=== PATIENT | male | born 1955 | race Caucasian/White ===

== ENCOUNTER 2016-10-11 | Emergency (ER) | payer OTHER ==
--- NOTE | 2016-10-11 15:22 | ED.PDOC ---
History of Present Illness - General Chief Complaint: General Stated Complaint: arm swelling Time Seen by Provider: 10/11/16 15:19 Source: patient, RN notes reviewed, Vital Signs reviewed Exam Limitations: no limitations - History of Present Illness Initial Comments: This 61 y/o male hit the metal part on his doorway which caused a wound to his left arm 2 days ago. This AM when he awoke, the area was red and painful. Since he had open-heart surgery two months ago, he knew he had to come in to get it checked. The pain is mild-moderate. He washed the wound right away and put antibiotic ointment on it. He denies any fever. He has chills, but this started prior to the wound. No pain in his joints. Timing/Duration: getting worse, other - 2 days ago Severity: mild, moderate Improving Factors: nothing Worsening Factors: nothing Associated Symptoms: denies symptoms Allergies/Adverse Reactions: Allergies NO KNOWN ALLERGY Allergy (Verified 10/11/16 14:05) Home Medications: Ambulatory Orders Insulin Detemir [Levemir Pen] 30 units SUBCU PRN PRN 08/31/15 Nrpbpwivtv-Zqjwsfyvfgtjl-Uayhb [Capacet 50-325-40 mg] 1 cap PO DAILY 10/21/15 Cyclobenzaprine Tab (ER Disp) [Flexeril Tab (ER Dispense)] 10 mg PO BEDTIME 08/26 Lisinopril 10 mg PO BID 10/21/15 Nitroglycerin [Nitrostat] 0.4 mg SL Q5MIN PRN 10/21/15 Pantoprazole Sodium 40 mg PO DAILY 10/21/15 Allopurinol [Zyloprim] 100 mg PO DAILY 12/21/15 Atorvastatin Calcium [Lipitor] 40 mg PO DAILY 12/21/15 Budes/Formoterol INH 160/4.5 [Symbicort Inhaler 160/4.5] 1 puff INH DAILY HYDROcodone 5MG/APAP 325MG [[place] 5/325] 1 tab PO Q4H PRN 12/21/15 Calcitriol 0.25 mcg PO DAILY 01/14/16 Sulfamethoxazole-Trimethoprim [Bactrim Ds 800-160 mg] 1 tab PO BID #14 tab 10/11 Review of Systems - Review of Systems Constitutional: States: chills EENTM: States: no symptoms reported Respiratory: States: no symptoms reported Cardiology: States: no symptoms reported Gastrointestinal/Abdominal: States: no symptoms reported Genitourinary: States: no symptoms reported Musculoskeletal: States: no symptoms reported Skin: States: change in color, lesions Neurological: States: no symptoms reported Endocrine: States: intolerance to cold Hematologic/Lymphatic: States: no symptoms reported All other Systems: Reviewed and Negative Past Medical History (General) - Patient Medical History Hx Seizures: No Hx Stroke: No Hx Asthma: Yes Hx of COPD: Yes Hx Cardiac Disorders: Yes - arrhythmia Hx Congestive Heart Failure: Yes Hx Pacemaker: No Hx Hypertension: Yes Hx Diabetes: Yes Hx MRSA: No Surgical History: other - Vaccination History Hx Tetanus, Diphtheria Vaccination: No Hx Influenza Vaccination: Yes - 2014 Hx Pneumococcal Vaccination: Yes - Social History Hx Tobacco Use: Yes - Quit in Hx Alcohol Use: No Hx Substance Use: No Hx Substance Use Treatment: No Hx Depression: No Hx Physical Abuse: No Hx Emotional Abuse: No - Activities of Daily Living Hospice Agency (if applicable):: None - Female History Patient is a Female of Child Bearing Age (10 -59 yrs old): No Patient : No Family Medical History - Family History Father Family History: Unknown Name: Robert Mercado Age (years): 69 Living Status: Age at (years of age): 69 Cause of : Natural causes. Hx Family Asthma: - Pt Hx Family Congestive Heart Failure: Yes - Pt Hx Family Hypertension: Yes - Father, siblings Hx Family Stroke: Yes - Mother Hx Cardiac Disease: Yes - Father and siblings Hx Family Diabetes: Yes - Father and sister Hx Family Cancer: No Physical Exam - Physical Exam General Appearance: Alert, Comfortable, No apparent distress Ears, Nose, Throat: hearing grossly normal Respiratory: lungs clear, normal breath sounds, no respiratory distress, no accessory muscle use Cardiovascular/Chest: regular rate, rhythm, no edema, no gallop, no murmur Gastrointestinal/Abdominal: normal bowel sounds, non tender, soft Extremity: normal range of motion, no pedal edema Neurologic: alert, normal mood/affect, oriented x 3 Skin Exam: other - wound 1 cm on dorsal mid left forearm with erythema and induration 4 cm in diameter. No fluctuance. Lymphatic: no adenopathy Progress - Results/Orders Results/Orders: 10/11/16 13:55 Temperature 96.9 F L Pulse Rate [ 93 H pulse ox] Respiratory 20 Rate Blood Pressure 115/73 [Right Arm] O2 Sat by Pulse 93 L Oximetry Departure - Departure Clinical Impression: Wound cellulitis Time of Disposition: 15:27 Disposition: Discharge to Home or Self Care Condition: Fair Departure Forms: Patient Portal Self Enrollment, ED Discharge - Pt. Copy Instructions: DI for Cellulitis -- Adult, Cellulitis Diet: resume usual diet Referrals: VIOLETTA CHÁVEZ [Primary Care Provider] - 1-2 Weeks Prescriptions: Sulfamethoxazole-Trimethoprim [Bactrim Ds 800-160 mg] 1 tab PO BID #14 tab Home Medications: Ambulatory Orders Insulin Detemir [Levemir Pen] 30 units SUBCU PRN PRN 08/31/15 Edvchxhwgs-Ohlqdwqcsqdck-Elxan [Capacet 50-325-40 mg] 1 cap PO DAILY 10/21/15 Cyclobenzaprine Tab (ER Disp) [Flexeril Tab (ER Dispense)] 10 mg PO BEDTIME 08/26 Lisinopril 10 mg PO BID 10/21/15 Nitroglycerin [Nitrostat] 0.4 mg SL Q5MIN PRN 10/21/15 Pantoprazole Sodium 40 mg PO DAILY 10/21/15 Allopurinol [Zyloprim] 100 mg PO DAILY 12/21/15 Atorvastatin Calcium [Lipitor] 40 mg PO DAILY 12/21/15 Budes/Formoterol INH 160/4.5 [Symbicort Inhaler 160/4.5] 1 puff INH DAILY HYDROcodone 5MG/APAP 325MG [[place] 5/325] 1 tab PO Q4H PRN 12/21/15 Calcitriol 0.25 mcg PO DAILY 01/14/16 Sulfamethoxazole-Trimethoprim [Bactrim Ds 800-160 mg] 1 tab PO BID #14 tab 10/11 Additional Instructions: Follow up in ED for ANY fever or increase in size of cellulitis.
== END 2016-10-11 16:04 | disposition home or self-care (01) ==

== ENCOUNTER 2016-11-19 11:38 | Emergency (ER) | payer OTHER ==
[2016-11-19 12:00] VITALS: TEMP 96.8
--- NOTE | 2016-11-19 13:23 | RAD ---
EXAM DESCRIPTION: XR SHOULDER 2 OR MORE VIEWS CLINICAL HISTORY: [place] "pop" in shoulder, now severe pain COMPARISON: None. IMPRESSION: Two views of the right shoulder show no evidence of acute fracture, focal bone destruction, or joint dislocation. The osseous structures are diffusely osteopenic. Small inferior medial osteophyte of the humeral head is seen consistent with glenohumeral joint osteoarthritic changes. There is elevation of the humeral head in the glenohumeral joint contouring the inferior aspect of the acromion process. This likely represents evidence and sequela of chronic rotator cuff tear. Electronically signed by: Jorge Mackey MD 11/19/2016 13:21
--- NOTE | 2016-11-19 14:06 | ED.PDOC ---
History of Present Illness - General Chief Complaint: Upper Extremity Injury Stated Complaint: RIGHT SHOULDER PAIN Time Seen by Provider: 11/19/16 12:37 Source: patient, RN notes reviewed, Vital Signs reviewed Exam Limitations: no limitations - History of Present Illness Initial Comments: Patient is a 61 y/o male who was picking something off the floor and heard a pop inn his right shoulder. Since, he has had extreme pain in the shoulder. He has greatly reduced ROM and is unable to lift his arm without severe pain. The pain is sharp, worse with movement, especially abduction and internal rotation. Additionally, Patient had a ringworm on his upper left arm. He was given some medicine by his physician and it went away, however it has returned. It is very itchy. Timing/Duration: getting worse, other - 2 days ago Severity: severe Improving Factors: nothing Worsening Factors: movement Associated Symptoms: denies symptoms Allergies/Adverse Reactions: Allergies NO KNOWN ALLERGY Allergy (Verified 10/11/16 14:05) Home Medications: Ambulatory Orders Insulin Detemir [Levemir Pen] 30 units SUBCU PRN PRN 08/31/15 Zmpxidsmjw-Lnjfedqhwsjzu-Njihl [Capacet 50-325-40 mg] 1 cap PO DAILY 10/21/15 Cyclobenzaprine Tab (ER Disp) [Flexeril Tab (ER Dispense)] 10 mg PO BEDTIME 08/26 Lisinopril 10 mg PO BID 10/21/15 Nitroglycerin [Nitrostat] 0.4 mg SL Q5MIN PRN 10/21/15 Pantoprazole Sodium 40 mg PO DAILY 10/21/15 Allopurinol [Zyloprim] 100 mg PO DAILY 12/21/15 Atorvastatin Calcium [Lipitor] 40 mg PO DAILY 12/21/15 Budes/Formoterol INH 160/4.5 [Symbicort Inhaler 160/4.5] 1 puff INH DAILY HYDROcodone 5MG/APAP 325MG [[place] 5/325] 1 tab PO Q4H PRN 12/21/15 Calcitriol 0.25 mcg PO DAILY 01/14/16 Sulfamethoxazole-Trimethoprim [Bactrim Ds 800-160 mg] 1 tab PO BID #14 tab 10/11 Terbinafine [Lamisil Advanced] 1 % TD DAILY #30 gm 11/19/16 Review of Systems - Review of Systems Constitutional: States: no symptoms reported EENTM: States: no symptoms reported Respiratory: States: no symptoms reported Cardiology: States: no symptoms reported Gastrointestinal/Abdominal: States: no symptoms reported Genitourinary: States: no symptoms reported Musculoskeletal: States: joint pain, muscle pain Skin: States: no symptoms reported Neurological: States: no symptoms reported Endocrine: States: no symptoms reported Hematologic/Lymphatic: States: no symptoms reported All other Systems: Reviewed and Negative Past Medical History (General) - Patient Medical History Hx Seizures: No Hx Stroke: No Hx Asthma: Yes Hx of COPD: Yes Hx Cardiac Disorders: Yes - arrhythmia Hx Congestive Heart Failure: Yes Hx Pacemaker: No Hx Hypertension: Yes Hx Diabetes: Yes Hx MRSA: No Surgical History: no surgical history - Vaccination History Hx Tetanus, Diphtheria Vaccination: No Hx Influenza Vaccination: Yes - 2014 Hx Pneumococcal Vaccination: Yes - Social History Hx Tobacco Use: Yes - Quit in Hx Alcohol Use: No Hx Substance Use: No Hx Substance Use Treatment: No Hx Depression: No Hx Physical Abuse: No Hx Emotional Abuse: No - Female History Patient : No Family Medical History - Family History Father Family History: Unknown Name: Robert Mercado Age (years): 69 Living Status: Age at (years of age): 69 Cause of : Natural causes. Hx Family Asthma: - Pt Hx Family Congestive Heart Failure: Yes - Pt Hx Family Hypertension: Yes - Father, siblings Hx Family Stroke: Yes - Mother Hx Cardiac Disease: Yes - Father and siblings Hx Family Diabetes: Yes - Father and sister Hx Family Cancer: No Physical Exam - Physical Exam General Appearance: Alert, Obvious distress - Mild, Unkempt Ears, Nose, Throat: hearing grossly normal, normal ENT inspection Neck: non-tender, full range of motion Respiratory: lungs clear, normal breath sounds, no respiratory distress, no accessory muscle use Cardiovascular/Chest: regular rate, rhythm, no edema, no gallop, no murmur Gastrointestinal/Abdominal: normal bowel sounds, non tender, soft Back Exam: normal inspection, no vertebral tenderness Extremity: other - R shoulder: Decreased ROM, abd < 90 deg, pain with int rot., tender joint space and ac joint Neurologic: alert, normal mood/affect, oriented x 3 Skin Exam: warm/dry, rash - Macular, flaky rash on anterior/lateral distal arm and proximal forearm Progress - Results/Orders Results/Orders: 11/19/16 11/19/16 11:54 12:55 Temperature 96.8 F L Pulse Rate [RH] 68 61 Respiratory 16 20 Rate Blood Pressure 155/79 142/87 [LEFT BRACHIAL] O2 Sat by Pulse 95 95 Oximetry - EKG/XRAY/CT XRAY: R shoulder Xray Comments: Glenohumeral Jt. OA, evidence of chronic rotator cuff tear Departure - Departure Clinical Impression: Tinea corporis Right shoulder strain Qualifiers: Encounter type: initial encounter Qualifier Code: (S46.911A) Strain of unspecified muscle, fascia and tendon at shoulder and upper arm level, right arm , initial encounter Rotator cuff tear, right Qualifiers: Rotator cuff tear extent: unspecified tear extent Qualifier Code: (M75.101) Unspecified rotator cuff tear or rupture of right shoulder, not specified as traumatic Glenohumeral arthritis Qualifiers: Laterality: right Qualifier Code: (M19.011) Primary osteoarthritis, right shoulder Time of Disposition: 14:21 Disposition: Discharge to Home or Self Care Condition: Good Departure Forms: ED Discharge - Pt. Copy, Patient Portal Self Enrollment Instructions: DI for Rotator Cuff Injury, Shoulder Sprain, DI for Tinea Corporis Diet: resume usual diet Activity: no lifting, no pushing/pulling with affected limb Referrals: VIOLETTA CHÁVEZ [Primary Care Provider] - 1-2 Weeks Prescriptions: Terbinafine [Lamisil Advanced] 1 % TD DAILY #30 gm Home Medications: Ambulatory Orders Insulin Detemir [Levemir Pen] 30 units SUBCU PRN PRN 08/31/15 Aaggdhbzhx-Waefpjutdccrn-Qrhot [Capacet 50-325-40 mg] 1 cap PO DAILY 10/21/15 Cyclobenzaprine Tab (ER Disp) [Flexeril Tab (ER Dispense)] 10 mg PO BEDTIME 08/26 Lisinopril 10 mg PO BID 10/21/15 Nitroglycerin [Nitrostat] 0.4 mg SL Q5MIN PRN 10/21/15 Pantoprazole Sodium 40 mg PO DAILY 10/21/15 Allopurinol [Zyloprim] 100 mg PO DAILY 12/21/15 Atorvastatin Calcium [Lipitor] 40 mg PO DAILY 12/21/15 Budes/Formoterol INH 160/4.5 [Symbicort Inhaler 160/4.5] 1 puff INH DAILY HYDROcodone 5MG/APAP 325MG [[place] 5/325] 1 tab PO Q4H PRN 12/21/15 Calcitriol 0.25 mcg PO DAILY 01/14/16 Sulfamethoxazole-Trimethoprim [Bactrim Ds 800-160 mg] 1 tab PO BID #14 tab 10/11 Terbinafine [Lamisil Advanced] 1 % TD DAILY #30 gm 11/19/16 Additional Instructions: May alternate Naproxen OR Ibuprofen and Tylenol for pain.
[2016-11-19 14:48] VITALS: O2SAT 92
[2016-11-19 14:51] VITALS: BP 138/81
== END 2016-11-19 14:40 | disposition home or self-care (01) ==
LOC: ER 11:38
DX: S46.911A Strain of unspecified muscle, fascia and tendon at shoulder and upper arm level, right arm, initial encounter (principal); M75.101 Unspecified rotator cuff tear or rupture of right shoulder, not specified as traumatic; M19.011 Primary osteoarthritis, right shoulder; B35.4 Tinea corporis; J44.9 Chronic obstructive pulmonary disease, unspecified; I49.9 Cardiac arrhythmia, unspecified; I10 Essential (primary) hypertension; E11.9 Type 2 diabetes mellitus without complications; Z87.891 Personal history of nicotine dependence; Z79.899 Other long term (current) drug therapy; Z79.4 Long term (current) use of insulin; X58.XXXA Exposure to other specified factors, initial encounter

== ENCOUNTER → 2016-12-16 | Outpatient (CLI) | payer OTHER ==
--- NOTE | 2016-12-16 15:01 | MRI ---
MRI right shoulder without contrast INDICATION: Chronic shoulder pain rotator cuff tear, onset of symptoms two weeks ago lifting injury TECHNIQUE: Noncontrast MR imaging right shoulder standard protocol FINDINGS: There is a full-thickness detachment of the subscapularis tendon retracted to the glenohumeral joint level. Diffuse labral degeneration with mild glenohumeral osteoarthrosis. Full-thickness retracted tears of the supraspinatus and infraspinatus tendons retracted to the glenohumeral joint level. Narrowed subacromial space with moderate hypertrophic AC joint arthrosis and undersurface erosion and cystic change of the acromion related to the high riding humerus. There is a prominent cystic-appearing lesion or less likely chondroid lesion in the greater tuberosity. There is continuous fluid from the glenohumeral joint into the bursa. There is also cystic change and edema in the upper rim of the glenoid indicating chondrosis and developing osteoarthrosis. Grade 4 fatty and volumetric atrophy supraspinatus and infraspinatus muscle bellies. Grade 3 fatty and volumetric atrophy of the subscapularis. Grade 1 marbling teres minor. IMPRESSION: Massive chronic full-thickness retracted rotator cuff tears supraspinatus and infraspinatus and subscapularis with muscle atrophy see above discussion High riding humerus related to the deficient rotator cuff with erosion and cystic change of the acromion AC joint osteoarthrosis Early glenohumeral osteoarthrosis Ill-defined intracapsular biceps indicating high-grade partial to full-thickness tear Electronically signed by: Fausto Felder MD 12/16/2016 3:01 PM ACCOUNTING PRACTICE MANAGER
== END | disposition home or self-care (01) ==
LOC: MRI 12:31
PROVIDERS: ATTEND Family Medicine
DX: M75.101 Unspecified rotator cuff tear or rupture of right shoulder, not specified as traumatic (principal); M19.011 Primary osteoarthritis, right shoulder

== ENCOUNTER 2017-01-06 17:50 | Emergency (ER) | payer OTHER ==
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
[2017-01-06 20:23] VITALS: BP 156/90; TEMP 98.2; O2SAT 96
== END 2017-01-06 20:29 | disposition home or self-care (01) ==
LOC: ER 17:50
DX: S20.219A Contusion of unspecified front wall of thorax, initial encounter (principal); S29.011A Strain of muscle and tendon of front wall of thorax, initial encounter; J44.9 Chronic obstructive pulmonary disease, unspecified; I11.0 Hypertensive heart disease with heart failure; I50.9 Heart failure, unspecified; E11.9 Type 2 diabetes mellitus without complications; I49.9 Cardiac arrhythmia, unspecified; Z87.891 Personal history of nicotine dependence; V49.40XA Driver injured in collision with unspecified motor vehicles in traffic accident, initial encounter; Y92.410 Unspecified street and highway as the place of occurrence of the external cause; Z79.4 Long term (current) use of insulin; Z79.899 Other long term (current) drug therapy

== ENCOUNTER 2017-09-30 06:01 | Emergency (ER) | payer OTHER ==
[2017-09-30 06:19] VITALS: BP 154/69; TEMP 96.7; O2SAT 95
[2017-09-30] MEDS ORDERED: LIDOCAINE 1% 10 ML VIAL INJ ONE (06:19)
--- NOTE | 2017-09-30 06:41 | ED.PDOC ---
History of Present Illness - General Chief Complaint: ENT Problem Stated Complaint: bug crawled in ear Time Seen by Provider: 09/30/17 06:38 Source: patient, RN notes reviewed, Vital Signs reviewed Exam Limitations: no limitations Additional Information: Pt presents to ER c/o sensation of insect in right ear.Otherwise no complaints. - History of Present Illness Timing/Duration: abrupt EENT Location: ear (R) Prearrival Treatment: no prearrival treatment Improving Factors: nothing Worsening Factors: nothing Associated Symptoms: denies symptoms Allergies/Adverse Reactions: Allergies NO KNOWN ALLERGY Allergy (Verified 10/11/16 14:05) Home Medications: Ambulatory Orders Insulin Detemir [Levemir Pen] 30 units SUBCU PRN PRN 08/31/15 Ablhgdwsyz-Srxsldbrhowjj-Jcgiv [Capacet 50-325-40 mg] 1 cap PO DAILY 10/21/15 Cyclobenzaprine Tab (ER Disp) [Flexeril Tab (ER Dispense)] 10 mg PO BEDTIME 08/26 Lisinopril 10 mg PO BID 10/21/15 Nitroglycerin [Nitrostat] 0.4 mg SL Q5MIN PRN 10/21/15 Pantoprazole Sodium 40 mg PO DAILY 10/21/15 Allopurinol [Zyloprim] 100 mg PO DAILY 12/21/15 Atorvastatin Calcium [Lipitor] 40 mg PO DAILY 12/21/15 Budes/Formoterol INH 160/4.5 [Symbicort Inhaler 160/4.5] 1 puff INH DAILY HYDROcodone 5MG/APAP 325MG [[place] 5/325] 1 tab PO Q4H PRN 12/21/15 Calcitriol 0.25 mcg PO DAILY 01/14/16 Sulfamethoxazole-Trimethoprim [Bactrim Ds 800-160 mg] 1 tab PO BID #14 tab 10/11 Terbinafine [Lamisil Advanced] 1 % TD DAILY #30 gm 11/19/16 tiZANidine [Zanaflex] 4 mg PO TID PRN #30 tab 01/06/17 Review of Systems - Review of Systems Constitutional: States: no symptoms reported EENTM: States: ear pain - Right ear - insect in right ear canal Respiratory: States: no symptoms reported Cardiology: States: no symptoms reported Gastrointestinal/Abdominal: States: no symptoms reported Genitourinary: States: no symptoms reported Musculoskeletal: States: no symptoms reported Skin: States: no symptoms reported Neurological: States: no symptoms reported Endocrine: States: no symptoms reported Hematologic/Lymphatic: States: no symptoms reported Past Medical History (General) - Patient Medical History Hx Seizures: No Hx Stroke: No Hx Asthma: Yes Hx of COPD: Yes Hx Cardiac Disorders: Yes - arrhythmia Hx Congestive Heart Failure: Yes Hx Pacemaker: No Hx Hypertension: Yes Hx Diabetes: Yes Hx MRSA: No Surgical History: angioplasty, coronary bypass surgery, other - Vaccination History Hx Tetanus, Diphtheria Vaccination: No Hx Influenza Vaccination: No Hx Pneumococcal Vaccination: Yes Immunizations Up to Date: Yes - Social History Hx Tobacco Use: No Hx Alcohol Use: No Hx Substance Use: No Hx Substance Use Treatment: No Hx Depression: No Hx Physical Abuse: No Hx Emotional Abuse: No - Female History Patient : No Family Medical History - Family History Father Family History: Unknown Name: Robert Mercado Age (years): 69 Living Status: Age at (years of age): 69 Cause of : Natural causes. Hx Family Asthma: - Pt Hx Family Congestive Heart Failure: Yes - Pt Hx Family Hypertension: Yes - Father, siblings Hx Family Stroke: Yes - Mother Hx Cardiac Disease: Yes - Father and siblings Hx Family Diabetes: Yes - Father and sister Hx Family Cancer: No Physical Exam - Physical Exam General Appearance: Alert, Comfortable, No apparent distress - at rest. Complained of some mild discomfort due to pressure with removal attempt. Eye Exam: bilateral normal Ear Exam: right ear: foreign body - Insect - not moving. After removal identified as a upton. Nasal Exam: normal inspection Throat Exam: pharynx normal Neck: non-tender, full range of motion, supple Cardiovascular/Respiratory: regular rate, rhythm, no respiratory distress Neurologic: no motor/sensory deficits, alert, normal mood/affect, oriented x 3 Skin Exam: normal color Progress - Progress Progress: 09/30/17 06:45 Insect removed without difficulty using fine alligator forceps. No obvious damage to right TM. No bleeding or lacerations noticed on inspection post- removal. 09/30/17 06:46 Procedures - Foreign Body Removal Foreign Body Removal: bug - Right ear bathed in saline and 1% Lidocaine mixture in attempts to paralyze and drown insect. Alligator forceps used to remove insect from right EAC. Insect measured 1 1/2 cm x 1/2 cm and had the appearance of a upton. Foreign Body Physician Comment:: Dr. Trujillo Departure - Departure Clinical Impression: Pain in right ear Time of Disposition: 06:45 Disposition: Discharge to Home or Self Care Condition: Good Departure Forms: ED Discharge - Pt. Copy, Patient Portal Self Enrollment Referrals: VIOLETTA CHÁVEZ [Primary Care Provider] - 1-2 Weeks Home Medications: Ambulatory Orders Insulin Detemir [Levemir Pen] 30 units SUBCU PRN PRN 08/31/15 Abnjhvbzef-Ozycwgoxwbwcz-Vtvey [Capacet 50-325-40 mg] 1 cap PO DAILY 10/21/15 Cyclobenzaprine Tab (ER Disp) [Flexeril Tab (ER Dispense)] 10 mg PO BEDTIME 08/26 Lisinopril 10 mg PO BID 10/21/15 Nitroglycerin [Nitrostat] 0.4 mg SL Q5MIN PRN 10/21/15 Pantoprazole Sodium 40 mg PO DAILY 10/21/15 Allopurinol [Zyloprim] 100 mg PO DAILY 12/21/15 Atorvastatin Calcium [Lipitor] 40 mg PO DAILY 12/21/15 Budes/Formoterol INH 160/4.5 [Symbicort Inhaler 160/4.5] 1 puff INH DAILY HYDROcodone 5MG/APAP 325MG [[place] 5/325] 1 tab PO Q4H PRN 12/21/15 Calcitriol 0.25 mcg PO DAILY 01/14/16 Sulfamethoxazole-Trimethoprim [Bactrim Ds 800-160 mg] 1 tab PO BID #14 tab 10/11 Terbinafine [Lamisil Advanced] 1 % TD DAILY #30 gm 11/19/16 tiZANidine [Zanaflex] 4 mg PO TID PRN #30 tab 01/06/17 Additional Instructions: Keep ear clean. Do not pick at ear. Do not stick q-tips in ear. Return to ER if you notice blood coming from right ear and/or severe pain.
== END 2017-09-30 06:45 | disposition home or self-care (01) ==
LOC: ER 06:01
DX: T16.1XXA Foreign body in right ear, initial encounter (principal); H92.01 Otalgia, right ear; J45.909 Unspecified asthma, uncomplicated; J44.9 Chronic obstructive pulmonary disease, unspecified; I11.0 Hypertensive heart disease with heart failure; I50.9 Heart failure, unspecified; E11.9 Type 2 diabetes mellitus without complications; Z79.899 Other long term (current) drug therapy; Z79.4 Long term (current) use of insulin

== ENCOUNTER 2018-02-13 12:50 | Emergency (ER) | payer OTHER ==
[2018-02-13 13:27] VITALS: BP 145/82; TEMP 97.6; O2SAT 92
[2018-02-13] MEDS ORDERED: KETOROLAC TROMETHAMINE INJ 30 MG/ML VIAL IM ONE (13:51)
--- NOTE | 2018-02-13 13:54 | ED.PDOC ---
History of Present Illness - General Chief Complaint: General Stated Complaint: left foot pain Time Seen by Provider: 02/13/18 13:35 Source: patient Exam Limitations: no limitations - History of Present Illness Initial Comments: Patient presents with left foot pain for 24 hours. It is located on the medial and lateral sides with no radiation. Burning and aching in nature. Constant. Worse with movement, better with rest. Has had previous episodes that he says are from his "diabetic foot pain". When this has happened before, he has used crutches until it resolves. No other complaints. Timing/Duration: 24 hours Severity: moderate Improving Factors: rest Worsening Factors: movement Associated Symptoms: denies symptoms Allergies/Adverse Reactions: Allergies NO KNOWN ALLERGY Allergy (Verified 10/11/16 14:05) Home Medications: Ambulatory Orders Insulin Detemir [Levemir Pen] 30 units SUBCU PRN PRN 08/31/15 Ovcnfqqlmp-Ujgqfqrwqotvx-Snrtz [Capacet 50-325-40 mg] 1 cap PO DAILY 10/21/15 Cyclobenzaprine Tab (ER Disp) [Flexeril Tab (ER Dispense)] 10 mg PO BEDTIME 08/26 Lisinopril 10 mg PO BID 10/21/15 Nitroglycerin [Nitrostat] 0.4 mg SL Q5MIN PRN 10/21/15 Pantoprazole Sodium 40 mg PO DAILY 10/21/15 Allopurinol [Zyloprim] 100 mg PO DAILY 12/21/15 Atorvastatin Calcium [Lipitor] 40 mg PO DAILY 12/21/15 Budes/Formoterol INH 160/4.5 [Symbicort Inhaler 160/4.5] 1 puff INH DAILY HYDROcodone 5MG/APAP 325MG [Nitro 5/325] 1 tab PO Q4H PRN 12/21/15 Calcitriol 0.25 mcg PO DAILY 01/14/16 Sulfamethoxazole-Trimethoprim [Bactrim Ds 800-160 mg] 1 tab PO BID #14 tab 10/11 Terbinafine [Lamisil Advanced] 1 % TD DAILY #30 gm 11/19/16 tiZANidine [Zanaflex] 4 mg PO TID PRN #30 tab 01/06/17 Review of Systems - Review of Systems Constitutional: States: no symptoms reported EENTM: States: no symptoms reported Respiratory: States: no symptoms reported Cardiology: States: no symptoms reported Gastrointestinal/Abdominal: States: no symptoms reported Genitourinary: States: no symptoms reported Musculoskeletal: States: see HPI Skin: States: no symptoms reported Neurological: States: no symptoms reported, emotional problems Hematologic/Lymphatic: States: no symptoms reported Past Medical History (General) - Patient Medical History Hx Seizures: No Hx Stroke: No Hx Asthma: Yes Hx of COPD: Yes Hx Cardiac Disorders: Yes - arrhythmia Hx Congestive Heart Failure: Yes Hx Pacemaker: No Hx Hypertension: Yes Hx Diabetes: Yes Hx MRSA: No Surgical History: coronary bypass surgery - Vaccination History Hx Tetanus, Diphtheria Vaccination: No Hx Influenza Vaccination: No Hx Pneumococcal Vaccination: Yes - Social History Hx Tobacco Use: Yes Hx Alcohol Use: No Hx Substance Use: No Hx Substance Use Treatment: No Hx Depression: No Hx Physical Abuse: No Hx Emotional Abuse: No - Female History Patient : No Family Medical History - Family History Father Family History: Unknown Name: Robert Mercado Age (years): 69 Living Status: Age at (years of age): 69 Cause of : Natural causes. Hx Family Asthma: - Pt Hx Family Congestive Heart Failure: Yes - Pt Hx Family Hypertension: Yes - Father, siblings Hx Family Stroke: Yes - Mother Hx Cardiac Disease: Yes - Father and siblings Hx Family Diabetes: Yes - Father and sister Hx Family Cancer: No Physical Exam - Physical Exam General Appearance: Alert Eye Exam: bilateral normal Ears, Nose, Throat: hearing grossly normal, normal ENT inspection Neck: non-tender, full range of motion, supple Respiratory: lungs clear, normal breath sounds Cardiovascular/Chest: normal peripheral pulses, regular rate, rhythm, no edema Gastrointestinal/Abdominal: normal bowel sounds, non tender, soft Back Exam: no CVA tenderness Extremity: other - TTP over medial and lateral aspects of the left foot. 5/5 strength to flexionj/extension of the toes as well as dorsiflexion/ plantarflexion of the left foot. Full sensation over entire foot. Capillar refill less than two seconds over entire foot. 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 Crutches provided. 02/13/18 13:56 E.R. warnings given. Questions were elicited and answered. Patient voiced understanding and agreement with the plan. 02/13/18 13:58 Departure - Departure Clinical Impression: Left foot pain Disposition: Discharge to Home or Self Care Condition: Good Departure Forms: ED Discharge - Pt. Copy, Patient Portal Self Enrollment Diet: other - as per your regular doctor Activity: other - crutches until pain is resolved Referrals: VIOLETTA CHÁVEZ [Primary Care Provider] - 1-2 Weeks Home Medications: Ambulatory Orders Insulin Detemir [Levemir Pen] 30 units SUBCU PRN PRN 08/31/15 Ngjvlwtxlj-Zqbxlaluucazb-Oyzch [Capacet 50-325-40 mg] 1 cap PO DAILY 10/21/15 Cyclobenzaprine Tab (ER Disp) [Flexeril Tab (ER Dispense)] 10 mg PO BEDTIME 08/26 Lisinopril 10 mg PO BID 10/21/15 Nitroglycerin [Nitrostat] 0.4 mg SL Q5MIN PRN 10/21/15 Pantoprazole Sodium 40 mg PO DAILY 10/21/15 Allopurinol [Zyloprim] 100 mg PO DAILY 12/21/15 Atorvastatin Calcium [Lipitor] 40 mg PO DAILY 12/21/15 Budes/Formoterol INH 160/4.5 [Symbicort Inhaler 160/4.5] 1 puff INH DAILY HYDROcodone 5MG/APAP 325MG [Nitro 5/325] 1 tab PO Q4H PRN 12/21/15 Calcitriol 0.25 mcg PO DAILY 01/14/16 Sulfamethoxazole-Trimethoprim [Bactrim Ds 800-160 mg] 1 tab PO BID #14 tab 10/11 Terbinafine [Lamisil Advanced] 1 % TD DAILY #30 gm 11/19/16 tiZANidine [Zanaflex] 4 mg PO TID PRN #30 tab 01/06/17 Additional Instructions: Use the crutches until pain has resolved. Take tylenol for further pain control. See your regular doctor about longer term evaluation and management of the pain.
== END 2018-02-13 14:22 | disposition home or self-care (01) ==
LOC: ER 12:50
DX: M79.672 Pain in left foot (principal); J44.9 Chronic obstructive pulmonary disease, unspecified; I11.0 Hypertensive heart disease with heart failure; I50.9 Heart failure, unspecified; J45.909 Unspecified asthma, uncomplicated; E11.9 Type 2 diabetes mellitus without complications; Z95.1 Presence of aortocoronary bypass graft; I49.9 Cardiac arrhythmia, unspecified; Z79.4 Long term (current) use of insulin
CPT/HCPCS: 82948; J1885

== ENCOUNTER → 2018-04-15 | Outpatient (CLI) | payer OTHER | LOC: LAB.O 13:02 | PROVIDERS: ATTEND Anesthesiology Pain Medicine | DX: Z95.2 Presence of prosthetic heart valve (principal) ==

== ENCOUNTER 2018-04-27 21:39 | Emergency (ER) | payer OTHER ==
--- NOTE | 2018-04-27 22:04 | ED.PDOC ---
History of Present Illness - General Chief Complaint: ENT Problem Stated Complaint: sore throat Time Seen by Provider: 04/27/18 21:50 Source: patient Exam Limitations: no limitations - History of Present Illness Initial Comments: Kamari Mercado 62 y/o male stated that he had achy throat for the last 3 days and productive cough on and off for 3 weeks.Denies fever nausea/or vomiting;no weight loss; had also been having nasal congestion.Has DM2,CAD,Asthma .Quit smoking several years ago. Also had not given his nightime dose of insulin tonight. Timing/Duration: gradual, other - 3 days ago Severity: moderate EENT Location: throat Prearrival Treatment: no prearrival treatment Presenting Symptoms: sore throat; cough Improving Factors: nothing Worsening Factors: nothing Associated Symptoms: other - see hpi Allergies/Adverse Reactions: Allergies NO KNOWN ALLERGY Allergy (Verified 04/27/18 22:06) Home Medications: Ambulatory Orders Insulin Detemir [Levemir Pen] 30 units SUBCU PRN PRN 08/31/15 Amxdsemtws-Pqrgougvoyyim-Jyhed [Capacet 50-325-40 mg] 1 cap PO DAILY 10/21/15 Cyclobenzaprine Tab (ER Disp) [Flexeril Tab (ER Dispense)] 10 mg PO BEDTIME 08/26 Lisinopril 10 mg PO BID 10/21/15 Nitroglycerin [Nitrostat] 0.4 mg SL Q5MIN PRN 10/21/15 Pantoprazole Sodium 40 mg PO DAILY 10/21/15 Allopurinol [Zyloprim] 100 mg PO DAILY 12/21/15 Atorvastatin Calcium [Lipitor] 40 mg PO DAILY 12/21/15 Budes/Formoterol INH 160/4.5 [Symbicort Inhaler 160/4.5] 1 puff INH DAILY HYDROcodone 5MG/APAP 325MG [[place] 5/325] 1 tab PO Q4H PRN 12/21/15 Calcitriol 0.25 mcg PO DAILY 01/14/16 Sulfamethoxazole-Trimethoprim [Bactrim Ds 800-160 mg] 1 tab PO BID #14 tab 10/11 Terbinafine [Lamisil Advanced] 1 % TD DAILY #30 gm 11/19/16 tiZANidine [Zanaflex] 4 mg PO TID PRN #30 tab 01/06/17 Review of Systems - Review of Systems Constitutional: States: no symptoms reported EENTM: States: see HPI, throat pain Respiratory: States: see HPI, cough Cardiology: States: no symptoms reported Gastrointestinal/Abdominal: States: no symptoms reported Genitourinary: States: no symptoms reported Musculoskeletal: States: no symptoms reported Skin: States: see HPI Neurological: States: no symptoms reported All other Systems: Reviewed and Negative, No Change from Baseline Past Medical History (General) - Patient Medical History Hx Seizures: No Hx Stroke: No Hx Asthma: Yes Hx of COPD: Yes Hx Cardiac Disorders: Yes - arrhythmia Hx Congestive Heart Failure: Yes Hx Pacemaker: No Hx Hypertension: Yes Hx Diabetes: Yes Hx MRSA: No Surgical History: coronary bypass surgery, other - cataract,cardiac stent;heart valve replacement - Vaccination History Hx Tetanus, Diphtheria Vaccination: No Hx Influenza Vaccination: No Hx Pneumococcal Vaccination: Yes - Social History Hx Tobacco Use: Yes Hx Alcohol Use: No Hx Substance Use: No Hx Substance Use Treatment: No Hx Depression: No Hx Physical Abuse: No Hx Emotional Abuse: No - Female History Patient : No Family Medical History - Family History Father Family History: Unknown Name: Robert Mercado Age (years): 69 Living Status: Age at (years of age): 69 Cause of : Natural causes. Hx Family Asthma: - Pt Hx Family Congestive Heart Failure: Yes - Pt Hx Family Hypertension: Yes - Father, siblings Hx Family Stroke: Yes - Mother Hx Cardiac Disease: Yes - Father and siblings Hx Family Diabetes: Yes - Father and sister Hx Family Cancer: No Physical Exam - Physical Exam General Appearance: Alert, Comfortable, No apparent distress Eye Exam: bilateral normal Ear Exam: bilateral ear: auricle normal, canal normal, TM normal Nasal Exam: other - congested nasal mucosa Throat Exam: other - pharyngeal erythema multiple dental decay Neck: supple, normal inspection, trachea midline Cardiovascular/Respiratory: regular rate, rhythm, no M/R/G, normal peripheral pulses, no respiratory distress, wheezing - bilaterally Abdominal Exam: non-tender, no organomegaly Neurologic: alert, oriented x 3 Skin Exam: normal color, warm/dry Progress - Progress Progress: 04/27/18 23:45 Vital Signs - 8 hr 04/27/18 04/27/18 04/27/18 21:45 21:50 22:10 Temperature 99.0 F Pulse Rate 88 Pulse Rate [ 102 H monitor] Respiratory 22 22 18 Rate Blood Pressure 139/81 [Right Arm] O2 Sat by Pulse 92 L 93 L Oximetry - Results/Orders Results/Orders: 04/27/18 22:05 IV Care:Saline Lock per Protoc QSHIFT 04/27/18 22:24 STREP A SCREEN CULTURE Stat 04/28/18 09:00 [facility] Daily Laboratory Results - last 24 hr 04/27/18 04/27/18 04/27/18 22:19 22:19 22:24 WBC 8.5 RBC 3.64 L Hgb 11.9 L Hct 33.8 L MCV 92.8 MCH 32.6 H MCHC 35.3 RDW 13.0 Plt Count 113 L MPV 8.8 Absolute Neuts (auto) 6.60 Absolute Lymphs (auto) 0.90 L Absolute Monos (auto) 0.70 Absolute Eos (auto) 0.20 Absolute Basos (auto) 0.10 Neutrophils % 77.5 Lymphocytes % 11.0 L Monocytes % 8.6 Eosinophils % 2.0 Basophils % 0.9 PT 10.6 INR 1.06 PTT (SP) 25.9 Sodium 136 Potassium 4.2 Chloride 104 Carbon Dioxide 27 Anion Gap 9.2 L BUN 18 Creatinine 1.59 H BUN/Creatinine Ratio 11.3 Random Glucose 316 H Serum Osmolality 285.9 Lactic Acid 1.0 Calcium 8.6 Magnesium 2.0 Total Bilirubin 0.7 Direct Bilirubin 0.1 Indirect Bilirubin 0.6 AST 21 ALT 20 Alkaline Phosphatase 122 H Creatine Kinase 127 CK-MB (CK-2) 4.5 H CK-MB (CK-2) % 3.54 H Troponin I 0.03 B-Natriuretic Peptide 77.8 Serum Total Protein 7.8 Albumin 3.9 Group A Strep Rapid Negative Departure - Departure Clinical Impression: Sore throat, Renal insufficiency Asthmatic bronchitis with exacerbation Qualifiers: Asthma severity: unspecified severity Qualified Code(s): J45.901 - Unspecified asthma with (acute) exacerbation Time of Disposition: 23:47 Disposition: Discharge to Home or Self Care Condition: Good Departure Forms: ED Discharge - Pt. Copy, Patient Portal Self Enrollment Instructions: Sore Throat in Adults, Avoiding Asthma Triggers, Asthma, Adult ( DC) Referrals: VIOLETTA CHÁVEZ [Primary Care Provider] - 1-2 Weeks Home Medications: Ambulatory Orders Insulin Detemir [Levemir Pen] 30 units SUBCU PRN PRN 08/31/15 Vzjtqvwluz-Fcfiwuxltrnby-Ffvmr [Capacet 50-325-40 mg] 1 cap PO DAILY 10/21/15 Cyclobenzaprine Tab (ER Disp) [Flexeril Tab (ER Dispense)] 10 mg PO BEDTIME 08/26 Lisinopril 10 mg PO BID 10/21/15 Nitroglycerin [Nitrostat] 0.4 mg SL Q5MIN PRN 10/21/15 Pantoprazole Sodium 40 mg PO DAILY 10/21/15 Allopurinol [Zyloprim] 100 mg PO DAILY 12/21/15 Atorvastatin Calcium [Lipitor] 40 mg PO DAILY 12/21/15 Budes/Formoterol INH 160/4.5 [Symbicort Inhaler 160/4.5] 1 puff INH DAILY HYDROcodone 5MG/APAP 325MG [[place] 5/325] 1 tab PO Q4H PRN 12/21/15 Calcitriol 0.25 mcg PO DAILY 01/14/16 Sulfamethoxazole-Trimethoprim [Bactrim Ds 800-160 mg] 1 tab PO BID #14 tab 10/11 Terbinafine [Lamisil Advanced] 1 % TD DAILY #30 gm 11/19/16 tiZANidine [Zanaflex] 4 mg PO TID PRN #30 tab 01/06/17 Additional Instructions: Use salt water gargle 3 x a day as needed for achy throat until better;Follow up with primary Md 29 April as needed;May take Tylenol 500 mg. by mouth 3 x a day as needed.
[2018-04-27 22:06] VITALS: TEMP 99
[2018-04-27] MEDS ORDERED: IPRATROPIUM/ALBUTEROL 3 ML VIAL NEB ONE ×2 (22:07→22:08)
--- NOTE | 2018-04-27 22:19 | RAD ---
EXAM: Chest,1 View CLINICAL INDICATION: Cough COMPARISON: 01/06/2017 FINDINGS: A single view of the chest was obtained. The heart size is mildly enlarged. Sternotomy wires are noted. The pulmonary vascularity is unremarkable. The lungs are clear. There is no consolidation, infiltrate, pleural effusion, or pneumothorax. IMPRESSION: No evidence of active pulmonary disease. Electronically signed by: Rohan Flores MD 04/27/2018 10:18 PM CDT
[2018-04-27 22:33] VITALS: O2SAT 93
[2018-04-27] MEDS ORDERED: SODIUM CHLORIDE 0.65% NASAL SPRAY 45 ML BTTL BNAS PRN (23:46)
[2018-04-27] MEDS ORDERED: ACETAMINOPHEN 500 MG TAB PO ONE (23:51)
[2018-04-28 00:30] VITALS: BP 132/88
== END 2018-04-28 00:08 | disposition home or self-care (01) ==
LOC: ER 21:39
DX: J02.9 Acute pharyngitis, unspecified (principal); J45.901 Unspecified asthma with (acute) exacerbation; E11.9 Type 2 diabetes mellitus without complications; I11.0 Hypertensive heart disease with heart failure; I50.9 Heart failure, unspecified; Z95.1 Presence of aortocoronary bypass graft; Z95.2 Presence of prosthetic heart valve; Z87.891 Personal history of nicotine dependence; Z79.4 Long term (current) use of insulin
CPT/HCPCS: 36415; 71045; 80048; 80076; 82550; 82553; 83605; 83880; 84484; 85025; 85610; 85730; 87070; 87880; 94640; J7620

== ENCOUNTER 2018-07-09 13:06 | Emergency (ER) | payer OTHER ==
[2018-07-09 13:34] VITALS: TEMP 97.6; O2SAT 94
[2018-07-09] MEDS ORDERED: predniSONE 20 MG TAB PO ONE (13:48)
[2018-07-09] MEDS ORDERED: COLCHICINE 0.6 MG TAB PO ONE (13:50)
--- NOTE | 2018-07-09 13:51 | ED.PDOC ---
History of Present Illness - General Chief Complaint: General Stated Complaint: woke up with finger swollen and red Time Seen by Provider: 07/09/18 13:48 Source: patient Exam Limitations: no limitations - History of Present Illness Initial Comments: patient comes in today with severe pain, swelling, and redness to his right index finger. Patient denies any injury or trauma. Patient states it felt fine last night when he went to bed. However, on awakening it was extremely painful and red. Patient does have a history of gout. Patient denies any fever , chills, nausea or vomiting. He does have diabetes, coronary artery disease, and hypertension and renal insufficiency. Timing/Duration: 1-3 hours Severity: severe Improving Factors: nothing Worsening Factors: movement Allergies/Adverse Reactions: Allergies NO KNOWN ALLERGY Allergy (Verified 07/09/18 13:33) Home Medications: Ambulatory Orders Insulin Detemir [Levemir Pen] 30 units SUBCU PRN PRN 08/31/15 Adwhxpkdsw-Ivbjowjbrydfu-Hbbam [Capacet 50-325-40 mg] 1 cap PO DAILY 10/21/15 Cyclobenzaprine Tab (ER Disp) [Flexeril Tab (ER Dispense)] 10 mg PO BEDTIME 08/26 Lisinopril 10 mg PO BID 10/21/15 Nitroglycerin [Nitrostat] 0.4 mg SL Q5MIN PRN 10/21/15 Pantoprazole Sodium 40 mg PO DAILY 10/21/15 Allopurinol [Zyloprim] 100 mg PO DAILY 12/21/15 Atorvastatin Calcium [Lipitor] 40 mg PO DAILY 12/21/15 Budes/Formoterol INH 160/4.5 [Symbicort Inhaler 160/4.5] 1 puff INH DAILY Calcitriol 0.25 mcg PO DAILY 01/14/16 tiZANidine [Zanaflex] 4 mg PO TID PRN #30 tab 01/06/17 Hydrocodone-Acetaminophen 7.5 mg PO PRN PRN 07/09/18 predniSONE 20 mg PO DAILY #3 tab 07/09/18 Review of Systems - Review of Systems Constitutional: States: no symptoms reported. Denies: chills, fever, malaise EENTM: States: no symptoms reported. Denies: eye pain, ear pain, nose pain Respiratory: States: no symptoms reported. Denies: cough, short of breath Cardiology: States: no symptoms reported. Denies: chest pain, edema, palpitations Gastrointestinal/Abdominal: States: no symptoms reported. Denies: abdominal pain, diarrhea, nausea Neurological: States: see HPI Past Medical History (General) - Patient Medical History Hx Seizures: No Hx Stroke: No Hx Dementia: No Hx Asthma: Yes Hx of COPD: Yes Hx Cardiac Disorders: Yes - arrhythmia Hx Congestive Heart Failure: Yes Hx Pacemaker: No Hx Hypertension: Yes Hx Thyroid Disease: No Hx Diabetes: Yes Hx Gastroesophageal Reflux: No Hx Renal Disease: No Hx Cancer: No Hx of HIV: No Hx Hepatitis C: No Hx MRSA: No - Vaccination History Hx Tetanus, Diphtheria Vaccination: No Hx Influenza Vaccination: No Hx Pneumococcal Vaccination: Yes - Social History Hx Tobacco Use: Yes Hx Alcohol Use: No Hx Substance Use: No Hx Substance Use Treatment: No Hx Depression: No Hx Physical Abuse: No Hx Emotional Abuse: No - Female History Patient : No Physical Exam - Physical Exam General Appearance: no apparent distress Neck: non-tender, full range of motion Respiratory: chest non-tender, lungs clear, normal breath sounds Cardiovascular/Chest: normal peripheral pulses, regular rate, rhythm, no edema, no murmur Gastrointestinal/Abdominal: normal bowel sounds, non tender, soft Extremities Exam: other - right finger has swelling, erythema, and calor to the DIP joint no pustule, no bite violetta, no skin break Departure - Departure Clinical Impression: Gout attack Qualifiers: Gout site: hand Gout etiology: unspecified cause Laterality: right Qualified Code(s): M10.9 - Gout, unspecified Disposition: Discharge to Home or Self Care Condition: Fair Departure Forms: ED Discharge - Pt. Copy, Patient Portal Self Enrollment Referrals: VIOLETTA CHÁVEZ [Primary Care Provider] - 1-2 Weeks Home Medications: Ambulatory Orders Insulin Detemir [Levemir Pen] 30 units SUBCU PRN PRN 08/31/15 Qiesdlqgax-Mwyhformihzow-Somze [Capacet 50-325-40 mg] 1 cap PO DAILY 10/21/15 Cyclobenzaprine Tab (ER Disp) [Flexeril Tab (ER Dispense)] 10 mg PO BEDTIME 08/26 Lisinopril 10 mg PO BID 10/21/15 Nitroglycerin [Nitrostat] 0.4 mg SL Q5MIN PRN 10/21/15 Pantoprazole Sodium 40 mg PO DAILY 10/21/15 Allopurinol [Zyloprim] 100 mg PO DAILY 12/21/15 Atorvastatin Calcium [Lipitor] 40 mg PO DAILY 12/21/15 Budes/Formoterol INH 160/4.5 [Symbicort Inhaler 160/4.5] 1 puff INH DAILY Calcitriol 0.25 mcg PO DAILY 01/14/16 tiZANidine [Zanaflex] 4 mg PO TID PRN #30 tab 01/06/17 Hydrocodone-Acetaminophen 7.5 mg PO PRN PRN 07/09/18 predniSONE 20 mg PO DAILY #3 tab 07/09/18 Additional Instructions: monitor BS carefully as medication will increase the BS. Follow up with PCP on Wednesday to recheck area.
[2018-07-09 14:13] VITALS: BP 124/93
== END 2018-07-09 14:19 | disposition home or self-care (01) ==
LOC: ER 13:06
DX: M10.9 Gout, unspecified (principal); J44.9 Chronic obstructive pulmonary disease, unspecified; I50.9 Heart failure, unspecified; I11.0 Hypertensive heart disease with heart failure; E11.9 Type 2 diabetes mellitus without complications; Z87.891 Personal history of nicotine dependence; Z79.899 Other long term (current) drug therapy

== ENCOUNTER 2018-11-13 14:45 | Emergency (ER) | payer OTHER ==
--- NOTE | 2018-11-13 15:17 | ED.PDOC ---
History of Present Illness - General Chief Complaint: Neuro Symptoms/Deficits Stated Complaint: ams Time Seen by Provider: 11/13/18 15:08 Source: patient, family Exam Limitations: no limitations - History of Present Illness Initial Comments: Kamari Mercado 63y/o male stated that he was noted by his to be mumbling about 6pm yesterday night and got light headed then fell asleep and on waking up this am he was fine except for some light headedness.No dysarthria,no weakness,no facial asymmetry,no tinnitus,able to move around w/o assistance. Timing/Duration: 24 hours Severity: moderate Episode Description: see hpi Improving Factors: nothing Worsening Factors: nothing Associated Symptoms: other - see hpi Allergies/Adverse Reactions: Allergies NO KNOWN ALLERGY Allergy (Verified 07/09/18 13:33) Home Medications: Ambulatory Orders Insulin Detemir [Levemir Pen] 30 units SUBCU PRN PRN 08/31/15 Mfkzsbtkhu-Mbdzglhvikzie-Lbptn [Capacet 50-325-40 mg] 1 cap PO DAILY 10/21/15 Cyclobenzaprine Tab (ER Disp) [Flexeril Tab (ER Dispense)] 10 mg PO BEDTIME 10/21/15 Lisinopril 10 mg PO BID 10/21/15 Nitroglycerin [Nitrostat] 0.4 mg SL Q5MIN PRN 10/21/15 Pantoprazole Sodium 40 mg PO DAILY 10/21/15 Allopurinol [Zyloprim] 100 mg PO DAILY 12/21/15 Atorvastatin Calcium [Lipitor] 40 mg PO DAILY 12/21/15 Budes/Formoterol INH 160/4.5 [Symbicort Inhaler 160/4.5] 1 puff INH DAILY 12/21/15 Calcitriol 0.25 mcg PO DAILY 01/14/16 tiZANidine [Zanaflex] 4 mg PO TID PRN #30 tab 01/06/17 Hydrocodone-Acetaminophen 7.5 mg PO PRN PRN 07/09/18 predniSONE 20 mg PO DAILY #3 tab 07/09/18 Review of Systems - Review of Systems Constitutional: States: no symptoms reported EENTM: States: no symptoms reported Respiratory: States: no symptoms reported Cardiology: States: no symptoms reported Gastrointestinal/Abdominal: States: no symptoms reported Genitourinary: States: no symptoms reported Musculoskeletal: States: no symptoms reported Skin: States: no symptoms reported Neurological: States: see HPI Endocrine: States: no symptoms reported Hematologic/Lymphatic: States: no symptoms reported All other Systems: Reviewed and Negative Past Medical History (General) - Patient Medical History Hx Seizures: No Hx Stroke: No Hx Dementia: No Hx Asthma: Yes Hx of COPD: Yes Hx Cardiac Disorders: Yes - arrhythmia Hx Congestive Heart Failure: Yes Hx Pacemaker: No Hx Hypertension: Yes Hx Thyroid Disease: No Hx Diabetes: Yes Hx Gastroesophageal Reflux: No Hx Renal Disease: No Hx Cancer: No Hx of HIV: No Hx Hepatitis C: No Hx MRSA: No Surgical History: coronary bypass surgery, other - heart valve replacement,cardiac stent,wrist - Vaccination History Hx Tetanus, Diphtheria Vaccination: No Hx Influenza Vaccination: No Hx Pneumococcal Vaccination: Yes - Social History Hx Tobacco Use: Yes Hx Alcohol Use: No Hx Substance Use: No Hx Substance Use Treatment: No Hx Depression: No Hx Physical Abuse: No Hx Emotional Abuse: No - Female History Patient : No Family Medical History - Family History Father Family History: Unknown Name: Robert Mercado Age (years): 69 Living Status: Age at (years of age): 69 Cause of : Natural causes. Hx Family Asthma: - Pt Hx Family Congestive Heart Failure: Yes - Pt Hx Family Hypertension: Yes - Father, siblings Hx Family Stroke: Yes - Mother Hx Cardiac Disease: Yes - Father and siblings Hx Family Diabetes: Yes - Father and sister Hx Family Cancer: No Physical Exam - Physical Exam General Appearance: Alert, Comfortable, No apparent distress, Other - speech fluent Eye Exam: bilateral normal ENT Exam: normal ENT inspection, hearing grossly normal, pharynx normal Neck: non-tender, full range of motion, supple, normal inspection, trachea midline, other - no carotid bruits bilaterally Respiratory: chest non-tender, lungs clear, normal breath sounds, no respiratory distress Cardiovascular/Chest: normal peripheral pulses, regular rate, rhythm, no murmur, other - heart valve click Peripheral Pulses: radial,right: 2+, radial,left: 2+ Gastrointestinal/Abdominal: normal bowel sounds, non tender, soft, no organomegaly, no pulsatile mass Back Exam: no CVA tenderness, no vertebral tenderness Extremities Exam: non-tender, no evidence of injury Mental 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, 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 Exam: normal hearing, normal speech, PERRL Coordination/Gait: normal finger to nose, normal gait, negative Romberg's sign Motor/Sensory: no motor deficit, no sensory deficit, no pronator drift Skin Exam: normal color, warm/dry Progress - Progress Progress: 11/13/18 16:18 Vital Signs - 8 hr 11/13/18 15:21 Temperature 97.9 F Pulse Rate [ 90 Left Radial] Respiratory 18 Rate Blood Pressure 140/91 [Left Arm] O2 Sat by Pulse 94 L Oximetry - Results/Orders Results/Orders: 11/13/18 15:30 EKG STAT Laboratory Results - last 24 hr 11/13/18 11/13/18 11/13/18 15:17 15:47 15:47 WBC 5.6 RBC 4.02 L Hgb 12.9 L Hct 37.1 L MCV 92.3 MCH 32.0 H MCHC 34.6 RDW 12.8 Plt Count 128 L MPV 9.5 Absolute Neuts (auto) 3.80 Absolute Lymphs (auto) 1.00 Absolute Monos (auto) 0.60 Absolute Eos (auto) 0.10 Absolute Basos (auto) 0.10 Neutrophils % 68.4 Lymphocytes % 18.2 L Monocytes % 11.2 H Eosinophils % 1.2 Basophils % 1.0 PT 10.8 INR 1.08 PTT (SP) 27.3 D-Dimer, Quantitative 0.49 Sodium 135 Potassium 3.8 Chloride 100 L Carbon Dioxide 27 Anion Gap 11.8 L BUN 39 H Creatinine 2.00 H BUN/Creatinine Ratio 19.5 Random Glucose 261 H Serum Osmolality 288.5 Calcium 9.1 Magnesium 2.1 Total Bilirubin 1.0 Direct Bilirubin 0.2 Indirect Bilirubin 0.8 AST 57 H ALT 23 Alkaline Phosphatase 115 Creatine Kinase 1959 H* CK-MB (CK-2) 44.4 H* CK-MB (CK-2) % 2.27 Troponin I 0.03 B-Natriuretic Peptide 17.5 Serum Total Protein 8.0 Albumin 4.0 Lipase TSH Urine Color Urine Appearance Urine pH Ur Specific [place] Urine Protein Urine Glucose (UA) Urine Ketones Urine Blood Urine Nitrite Urine Bilirubin Urine Urobilinogen Ur Leukocyte Esterase Urine RBC Urine WBC Ur Epithelial Cells Urine Bacteria Urine Opiates Screen Negative Urine Barbiturates Negative Ur Phencyclidine Scrn Negative U Amphetamin/Meth Scrn Negative U Benzodiazepines Scrn Negative U Cocaine Metab Screen Negative U Cannabinoids Screen Negative 11/13/18 11/13/18 11/13/18 16:56 17:08 20:45 WBC RBC Hgb Hct MCV MCH MCHC RDW Plt Count MPV Absolute Neuts (auto) Absolute Lymphs (auto) Absolute Monos (auto) Absolute Eos (auto) Absolute Basos (auto) Neutrophils % Lymphocytes % Monocytes % Eosinophils % Basophils % PT INR PTT (SP) D-Dimer, Quantitative Sodium Potassium Chloride Carbon Dioxide Anion Gap BUN Creatinine BUN/Creatinine Ratio Random Glucose Serum Osmolality Calcium Magnesium Total Bilirubin Direct Bilirubin Indirect Bilirubin AST ALT Alkaline Phosphatase Creatine Kinase 1391 H* CK-MB (CK-2) 31.9 H* CK-MB (CK-2) % 2.29 Troponin I 0.04 B-Natriuretic Peptide Serum Total Protein Albumin Lipase TSH 0.15 L Urine Color Yellow Urine Appearance Clear Urine pH 5.5 Ur Specific [place] 1.015 Urine Protein Negative Urine Glucose (UA) 250 H Urine Ketones Negative Urine Blood Trace-intact H Urine Nitrite Negative Urine Bilirubin Negative Urine Urobilinogen 1.0 Ur Leukocyte Esterase Negative Urine RBC 0 Urine WBC 0 Ur Epithelial Cells 0-1 Urine Bacteria 0 Urine Opiates Screen Urine Barbiturates Ur Phencyclidine Scrn U Amphetamin/Meth Scrn U Benzodiazepines Scrn U Cocaine Metab Screen U Cannabinoids Screen 11/13/18 11/13/18 20:45 20:45 WBC RBC Hgb Hct MCV MCH MCHC RDW Plt Count MPV Absolute Neuts (auto) Absolute Lymphs (auto) Absolute Monos (auto) Absolute Eos (auto) Absolute Basos (auto) Neutrophils % Lymphocytes % Monocytes % Eosinophils % Basophils % PT INR PTT (SP) D-Dimer, Quantitative Sodium 137 Potassium 4.4 Chloride 104 Carbon Dioxide 26 Anion Gap 11.4 L BUN 34 H Creatinine 1.73 H BUN/Creatinine Ratio 19.7 Random Glucose 153 H D Serum Osmolality 284.5 Calcium 8.4 Magnesium Total Bilirubin Direct Bilirubin Indirect Bilirubin AST ALT Alkaline Phosphatase Creatine Kinase CK-MB (CK-2) CK-MB (CK-2) % Troponin I B-Natriuretic Peptide Serum Total Protein Albumin Lipase 24 TSH Urine Color Urine Appearance Urine pH Ur Specific [place] Urine Protein Urine Glucose (UA) Urine Ketones Urine Blood Urine Nitrite Urine Bilirubin Urine Urobilinogen Ur Leukocyte Esterase Urine RBC Urine WBC Ur Epithelial Cells Urine Bacteria Urine Opiates Screen Urine Barbiturates Ur Phencyclidine Scrn U Amphetamin/Meth Scrn U Benzodiazepines Scrn U Cocaine Metab Screen U Cannabinoids Screen Discuss all test results with patient and - EKG/XRAY/CT EKG: Sinus, ST depression - anterolateral leads Comments: hr-82 CT Ordered: Yes - head no acute infarct or hemorrhage Stroke Information - Contraindications Antithrombotic Contraindication: Treatment not indicated - patient asymptomatic;.24 h see hpi Departure - Departure Clinical Impression: Altered awareness, transient, Statin-induced rhabdomyolysis, Abnormal serum thyroid stimulating hormone (TSH) level Time of Disposition: 22:36 Disposition: Discharge to Home or Self Care Condition: Fair Departure Forms: ED Discharge - Pt. Copy, Patient Portal Self Enrollment Instructions: Rhabdomyolysis (DC), Rhabdomyolysis Referrals: VIOLETTA CHÁVEZ [Primary Care Provider] - 1-2 Weeks Home Medications: Ambulatory Orders Insulin Detemir [Levemir Pen] 30 units SUBCU PRN PRN 08/31/15 Imfrkmfwha-Izbqirtyddhik-Pdxfc [Capacet 50-325-40 mg] 1 cap PO DAILY 10/21/15 Cyclobenzaprine Tab (ER Disp) [Flexeril Tab (ER Dispense)] 10 mg PO BEDTIME 10/21/15 Lisinopril 10 mg PO BID 10/21/15 Nitroglycerin [Nitrostat] 0.4 mg SL Q5MIN PRN 10/21/15 Pantoprazole Sodium 40 mg PO DAILY 10/21/15 Allopurinol [Zyloprim] 100 mg PO DAILY 12/21/15 Atorvastatin Calcium [Lipitor] 40 mg PO DAILY 12/21/15 Budes/Formoterol INH 160/4.5 [Symbicort Inhaler 160/4.5] 1 puff INH DAILY 12/21/15 Calcitriol 0.25 mcg PO DAILY 01/14/16 tiZANidine [Zanaflex] 4 mg PO TID PRN #30 tab 01/06/17 Hydrocodone-Acetaminophen 7.5 mg PO PRN PRN 07/09/18 predniSONE 20 mg PO DAILY #3 tab 07/09/18 Additional Instructions: STOP TAKING YOUR ATORVASTAT(Lipitor) continue with rest of your home medications except Atorvastatin need to stop Follow up with your primary Md in am 14 November 2018;Retrun to Emergency room as needed;Drink extra fluids
[2018-11-13 15:33] VITALS: TEMP 97.9
--- NOTE | 2018-11-13 15:49 | RAD ---
EXAM: Chest,1 View CLINICAL INDICATION: Altered mental status COMPARISON: 04/27/2018 FINDINGS: A single view of the chest was obtained. The heart size is normal. Sternotomy wires are noted. The pulmonary vascularity is unremarkable. The lungs are clear. There is no consolidation, infiltrate, pleural effusion, or pneumothorax. IMPRESSION: No evidence of active pulmonary disease. Electronically signed by: Rohan Flores MD 11/13/2018 3:46 PM [employer]ING [employer]
--- NOTE | 2018-11-13 15:56 | CT ---
EXAM DESCRIPTION: Head CLINICAL HISTORY: 63 years Male, ams COMPARISON: None. TECHNIQUE: Axial imaging. No IV contrast. Sagittal and coronal reconstruction FINDINGS: Ventricular system is within normal limits. No intracranial attenuation abnormalities are seen. No mass lesions or signs of hemorrhage. Moderate mucosal thickening right maxillary sinus, and mild mucosal thickening left maxillary sinus. Incidental lucency which measures 1.1 cm transverse, and 1.5 cm craniocaudad within the right anterior alveolar process of the maxilla. May represent a dentigerous cyst. Consider dental consultation. Tiny apical lucencies are also noted bilaterally involving the upper frontal teeth consistent with periodontal disease. Left nasal septal deviation with left nasal septal spur formation. IMPRESSION: Periodontal disease as described above for which dental consultation is suggested, which may be scheduled on an elective basis Sinus disease No intracranial abnormalities This exam was performed according to our departmental dose-optimization program, which includes automated exposure control, adjustment of the mA and/or kV according to patient size and/or use of iterative reconstruction technique. Electronically signed by: Huber Mayers 11/13/2018 3:54 PM [facility]
[2018-11-13] MEDS ORDERED: SODIUM CHLORIDE 0.9% 1000ML 1,000 ML IVS ONE ×2 (17:08→19:07)
[2018-11-13] MEDS ORDERED: SODIUM CHLORIDE 0.9% 500ML 500 ML IVS ONE (21:57)
[2018-11-13 23:00] VITALS: BP 136/86; O2SAT 95
== END 2018-11-13 23:05 | disposition home or self-care (01) ==
LOC: ER 14:45
DX: R41.82 Altered mental status, unspecified (principal); T50.995A Adverse effect of other drugs, medicaments and biological substances, initial encounter; M62.82 Rhabdomyolysis; R94.6 Abnormal results of thyroid function studies; J44.9 Chronic obstructive pulmonary disease, unspecified; I50.9 Heart failure, unspecified; I11.0 Hypertensive heart disease with heart failure; E11.9 Type 2 diabetes mellitus without complications; Z87.891 Personal history of nicotine dependence; Z79.899 Other long term (current) drug therapy; Z79.4 Long term (current) use of insulin
CPT/HCPCS: 36415; 70450; 71045; 80048; 80076; 80307; 81001; 82550; 82553; 83690; 83880; 84443; 84484; 85025; 85379; 85610; 85730; J7030; J7040

== ENCOUNTER 2019-04-26 13:19 | Emergency (ER) | payer OTHER ==
[2019-04-26] MEDS ORDERED: SODIUM CHLORIDE 0.9% 1000ML 1,000 ML IVS ONE (13:46)
--- NOTE | 2019-04-26 13:58 | RAD ---
EXAM DESCRIPTION: Chest,1 View CLINICAL HISTORY: 63 years Male, dizziness COMPARISON: Previous study November 13, 2018 TECHNIQUE: AP portable chest. FINDINGS: Heart size is prominent with normal pulmonary vascularity. Sternotomy wires are present. Left hemidiaphragm is mildly elevated. No consolidating infiltrate. No pulmonary mass or worrisome nodule. No pneumothorax or pleural effusion. Bones are unremarkable. IMPRESSION: No acute process is identified in the chest. Electronically signed by: Jorge Luis Mccray MD 04/26/2019 1:56 PM CDT
[2019-04-26] MEDS ORDERED: INSULIN, REG.(HUMAN) 100 U/ML VIAL IV ONE (14:13)
[2019-04-26 15:14] VITALS: O2SAT 94
[2019-04-26] MEDS ORDERED: INSULIN DETEMIR 100 UNITS/ML PEN SUBCU ONE (16:14)
--- NOTE | 2019-04-26 16:56 | ED.PDOC ---
History of Present Illness - General Chief Complaint: Headache Stated Complaint: headache, dizziness Time Seen by Provider: 04/26/19 13:27 Source: patient Exam Limitations: no limitations - History of Present Illness Initial Comments: the patient is a 63-year-old male presenting to the emergency room secondary to feeling fatigued and having some dizziness and a headache. His blood sugars have been high for the last week. Almost all of them greater than 500 on his monitor. No nausea or vomiting. No syncope. No chest pain. No focal neurological changes. He does have a history of very poorly controlled diabetes in general. Timing/Duration: unsure Severity: moderate Improving Factors: nothing Worsening Factors: nothing Associated Symptoms: denies symptoms Allergies/Adverse Reactions: Allergies NO KNOWN ALLERGY Allergy (Verified 02/28/19 12:05) Home Medications: Ambulatory Orders Insulin Detemir [Levemir Pen] 30 units SUBCU PRN PRN 08/31/15 Ylzjjqlyri-Ncubzowqfikex-Aocjb [Capacet 50-325-40 mg] 1 cap PO DAILY 10/21/15 Cyclobenzaprine Tab (ER Disp) [Flexeril Tab (ER Dispense)] 10 mg PO BEDTIME 10/21/15 Lisinopril 10 mg PO BID 10/21/15 Nitroglycerin [Nitrostat] 0.4 mg SL Q5MIN PRN 10/21/15 Pantoprazole Sodium 40 mg PO DAILY 10/21/15 Allopurinol [Zyloprim] 100 mg PO DAILY 12/21/15 Atorvastatin Calcium [Lipitor] 40 mg PO DAILY 12/21/15 Budes/Formoterol INH 160/4.5 [Symbicort Inhaler 160/4.5] 1 puff INH DAILY 12/21/15 Calcitriol 0.25 mcg PO DAILY 01/14/16 tiZANidine [Zanaflex] 4 mg PO TID PRN #30 tab 01/06/17 Hydrocodone-Acetaminophen 7.5 mg PO PRN PRN 07/09/18 predniSONE 20 mg PO DAILY #3 tab 07/09/18 Amoxicillin & Pot Clavulanate [Augmentin] 875 mg PO BID #20 tab 02/28/19 Review of Systems - Review of Systems Constitutional: States: malaise, weakness EENTM: States: no symptoms reported Respiratory: States: no symptoms reported Cardiology: States: no symptoms reported Gastrointestinal/Abdominal: States: no symptoms reported Genitourinary: States: no symptoms reported Musculoskeletal: States: no symptoms reported Skin: States: no symptoms reported Neurological: States: no symptoms reported Endocrine: States: no symptoms reported All other Systems: No Change from Baseline Past Medical History (General) - Patient Medical History Hx Seizures: No Hx Stroke: No Hx Dementia: No Hx Asthma: Yes Hx of COPD: Yes Hx Cardiac Disorders: Yes - arrhythmia Hx Congestive Heart Failure: Yes Hx Pacemaker: No Hx Hypertension: Yes Hx Thyroid Disease: No Hx Diabetes: Yes Hx Gastroesophageal Reflux: No Hx Renal Disease: No Hx Cancer: No Hx of HIV: No Hx Hepatitis C: No Hx MRSA: No Surgical History: coronary bypass surgery, other - Vaccination History Hx Tetanus, Diphtheria Vaccination: No Hx Influenza Vaccination: No Hx Pneumococcal Vaccination: Yes - 2014 - Social History Hx Tobacco Use: Yes Hx Alcohol Use: No Hx Substance Use: No Hx Substance Use Treatment: No Hx Depression: No Hx Physical Abuse: No Hx Emotional Abuse: No - Female History Patient : No Family Medical History - Family History Father Family History: Unknown Name: Robert Mercado Age (years): 69 Living Status: Age at (years of age): 69 Cause of : Natural causes. Hx Family Asthma: - Pt Hx Family Congestive Heart Failure: Yes - Pt Hx Family Hypertension: Yes - Father, siblings Hx Family Stroke: Yes - Mother Hx Cardiac Disease: Yes - Father and siblings Hx Family Diabetes: Yes - Father and sister Hx Family Cancer: No Physical Exam - Physical Exam General Appearance: Alert, No apparent distress Eye Exam: bilateral normal Ears, Nose, Throat: hearing grossly normal, normal ENT inspection Neck: full range of motion, supple Respiratory: lungs clear, normal breath sounds, no respiratory distress, no ac cessory muscle use Cardiovascular/Chest: normal peripheral pulses, regular rate, rhythm, no edema Peripheral Pulses: radial,right: 2+, radial,left: 2+ Gastrointestinal/Abdominal: non tender, soft Rectal Exam: deferred Back Exam: no CVA tenderness, no vertebral tenderness Extremity: non-tender, normal inspection, no pedal edema, normal capillary refill Neurologic: vaccinator II-XII nml as tested, alert, normal mood/affect, oriented x 3 Skin Exam: normal color Comments: Vital Signs - 8 hr 04/26/19 04/26/19 04/26/19 13:30 14:17 15:00 Temperature 98.7 F 97.3 F L Pulse Rate [ 104 H 105 H 97 H left brachial] Respiratory 20 20 Rate Blood Pressure 111/90 106/70 104/76 [left brachial] O2 Sat by Pulse 93 L 94 L Oximetry 04/26/19 16:00 Temperature Pulse Rate [ 88 left brachial] Respiratory 20 Rate Blood Pressure 119/81 [left brachial] O2 Sat by Pulse 94 L Oximetry Progress - Progress Progress: 04/26/19 16:57 the patient is a 63-year-old male presenting to the emergency room with headache and dizziness. This appears to be due to uncontrolled diabetes and mild dehydration. He has received IV insulin as well as subcutaneous insulin. His blood sugars are improving. He has also received a liter of IV fluids. I want him to increase his morning Levemir dose to 70 units from 60 units. I want him to add an evening Levemir dose of 20 units as well. He needs to keep himself well hydrated. He needs to keep a log of his blood sugars and follow up with his primary care doctor in the coming week. ER warnings were given for any acute worsening. - Results/Orders Results/Orders: Laboratory Tests 04/26/19 04/26/19 04/26/19 13:45 13:48 13:57 WBC RBC Hgb Hct MCV MCH MCHC RDW Plt Count MPV Absolute Neuts (auto) Absolute Lymphs (auto) Absolute Monos (auto) Absolute Eos (auto) Absolute Basos (auto) Neutrophils % Lymphocytes % Monocytes % Eosinophils % Basophils % Sodium 132 L Potassium 3.8 Chloride 95 L Carbon Dioxide 25 Anion Gap 15.8 BUN 40 H Creatinine 1.81 H BUN/Creatinine Ratio 22.1 H POC Glucose > 400 H* Random Glucose Cancelled 501 H* Hemoglobin A1c Serum Osmolality 296.6 H Calcium 8.9 Magnesium 2.3 Total Bilirubin 0.7 AST 24 ALT 23 Alkaline Phosphatase 100 Creatine Kinase 146 CK-MB (CK-2) 6.1 H* CK-MB (CK-2) % Not Reportable Troponin I 0.05 Serum Total Protein 8.1 Albumin 4.1 Globulin 4.0 H Albumin/Globulin Ratio 1.0 L Urine Color Urine Appearance Urine pH Ur Specific [place] Urine Protein Urine Glucose (UA) Urine Ketones Urine Blood Urine Nitrite Urine Bilirubin Urine Urobilinogen Ur Leukocyte Esterase Urine RBC Urine WBC Ur Epithelial Cells Urine Bacteria 04/26/19 04/26/19 04/26/19 13:57 13:57 15:04 WBC 7.1 RBC 4.53 L Hgb 15.0 Hct 43.0 MCV 94.8 H MCH 33.0 H MCHC 34.8 RDW 13.2 Plt Count 126 L MPV 10.0 Absolute Neuts (auto) 5.10 Absolute Lymphs (auto) 1.30 Absolute Monos (auto) 0.50 Absolute Eos (auto) 0.10 Absolute Basos (auto) 0.10 Neutrophils % 71.1 Lymphocytes % 17.9 L Monocytes % 7.6 Eosinophils % 2.1 Basophils % 1.3 Sodium Potassium Chloride Carbon Dioxide Anion Gap BUN Creatinine BUN/Creatinine Ratio POC Glucose Random Glucose Hemoglobin A1c 12.3 H Serum Osmolality Calcium Magnesium Total Bilirubin AST ALT Alkaline Phosphatase Creatine Kinase CK-MB (CK-2) CK-MB (CK-2) % Troponin I Serum Total Protein Albumin Globulin Albumin/Globulin Ratio Urine Color Yellow Urine Appearance Clear Urine pH 5.5 Ur Specific [place] 1.010 Urine Protein Negative Urine Glucose (UA) 500 H Urine Ketones Negative Urine Blood Trace-intact H Urine Nitrite Negative Urine Bilirubin Negative Urine Urobilinogen 0.2 Ur Leukocyte Esterase Negative Urine RBC 0 Urine WBC 0 Ur Epithelial Cells 0 Urine Bacteria 0 04/26/19 16:09 WBC RBC Hgb Hct MCV MCH MCHC RDW Plt Count MPV Absolute Neuts (auto) Absolute Lymphs (auto) Absolute Monos (auto) Absolute Eos (auto) Absolute Basos (auto) Neutrophils % Lymphocytes % Monocytes % Eosinophils % Basophils % Sodium Potassium Chloride Carbon Dioxide Anion Gap BUN Creatinine BUN/Creatinine Ratio POC Glucose 377 H Random Glucose Hemoglobin A1c Serum Osmolality Calcium Magnesium Total Bilirubin AST ALT Alkaline Phosphatase Creatine Kinase CK-MB (CK-2) CK-MB (CK-2) % Troponin I Serum Total Protein Albumin Globulin Albumin/Globulin Ratio Urine Color Urine Appearance Urine pH Ur Specific [place] Urine Protein Urine Glucose (UA) Urine Ketones Urine Blood Urine Nitrite Urine Bilirubin Urine Urobilinogen Ur Leukocyte Esterase Urine RBC Urine WBC Ur Epithelial Cells Urine Bacteria Departure - Departure Clinical Impression: Dehydration, moderate Uncontrolled diabetes mellitus Qualifiers: Diabetes mellitus type: type 2 Glycemic state: with hyperglycemia Qualified Code(s): E11.65 - Type 2 diabetes mellitus with hyperglycemia Disposition: Discharge to Home or Self Care Condition: Fair Departure Forms: ED Discharge - Pt. Copy, Patient Portal Self Enrollment Diet: diabetic diet Activity: increase activity as tolerated Referrals: VIOLETTA CHÁVEZ [Primary Care Provider] - 1-2 Weeks Home Medications: Ambulatory Orders Insulin Detemir [Levemir Pen] 30 units SUBCU PRN PRN 08/31/15 Bobjhjjosc-Vcendplrpovyd-Dayrr [Capacet 50-325-40 mg] 1 cap PO DAILY 10/21/15 Cyclobenzaprine Tab (ER Disp) [Flexeril Tab (ER Dispense)] 10 mg PO BEDTIME 10/21/15 Lisinopril 10 mg PO BID 10/21/15 Nitroglycerin [Nitrostat] 0.4 mg SL Q5MIN PRN 10/21/15 Pantoprazole Sodium 40 mg PO DAILY 10/21/15 Allopurinol [Zyloprim] 100 mg PO DAILY 12/21/15 Atorvastatin Calcium [Lipitor] 40 mg PO DAILY 12/21/15 Budes/Formoterol INH 160/4.5 [Symbicort Inhaler 160/4.5] 1 puff INH DAILY 12/21/15 Calcitriol 0.25 mcg PO DAILY 01/14/16 tiZANidine [Zanaflex] 4 mg PO TID PRN #30 tab 01/06/17 Hydrocodone-Acetaminophen 7.5 mg PO PRN PRN 07/09/18 predniSONE 20 mg PO DAILY #3 tab 07/09/18 Amoxicillin & Pot Clavulanate [Augmentin] 875 mg PO BID #20 tab 02/28/19 Additional Instructions: the patient is a 63-year-old male presenting to the emergency room with headache and dizziness. This appears to be due to uncontrolled diabetes and mild dehydration. He has received IV insulin as well as subcutaneous insulin. His blood sugars are improving. He has also received a liter of IV fluids. I want him to increase his morning Levemir dose to 70 units from 60 units. I want him to add an evening Levemir dose of 20 units as well. He needs to keep himself well hydrated. He needs to keep a log of his blood sugars and follow up with his primary care doctor in the coming week. ER warnings were given for any acute worsening.
[2019-04-26 17:29] VITALS: BP 122/81; TEMP 97.2
== END 2019-04-26 17:29 | disposition home or self-care (01) ==
LOC: ER 13:19
DX: E86.0 Dehydration (principal); E11.65 Type 2 diabetes mellitus with hyperglycemia; J44.9 Chronic obstructive pulmonary disease, unspecified; I50.9 Heart failure, unspecified; I11.0 Hypertensive heart disease with heart failure; Z95.1 Presence of aortocoronary bypass graft; Z87.891 Personal history of nicotine dependence; Z79.899 Other long term (current) drug therapy; Z79.4 Long term (current) use of insulin
CPT/HCPCS: 36415; 36416; 71045; 80053; 81001; 82550; 82553; 82948; 83036; 83735; 84484; 85025; J1815; J7030

== ENCOUNTER 2019-08-26 14:16 | Emergency (ER) | payer OTHER ==
[2019-08-26] MEDS ORDERED: IPRATROPIUM/ALBUTEROL 3 ML VIAL NEB ONE (14:41)
--- NOTE | 2019-08-26 15:05 | ED.PDOC ---
History of Present Illness - General Chief Complaint: Diabetic Complaint Stated Complaint: elevated BS and dizziness Time Seen by Provider: 08/26/19 14:57 Source: patient, RN notes reviewed, Vital Signs reviewed, EMS notes reviewed, family, RN/MD Exam Limitations: no limitations - History of Present Illness Initial Comments: patient presents today with complaints of dizziness and elevated blood sugar. Patient states that he has been taking his diabetic meds and said no dietary noncompliance. Patient states the dizziness comes and goes and nothing seems to make it better or worse. Patient denies any fever, chills, nausea, vomiting, diarrhea, chest pain, shortness of breath. He denies any blurry vision. Patient denies any vertiginous type symptoms. Patient denies any near-syncope. Timing/Duration: 4-6 hours Severity: mild Improving Factors: nothing Worsening Factors: nothing Associated Symptoms: weakness Allergies/Adverse Reactions: Allergies NO KNOWN ALLERGY Allergy (Verified 02/28/19 12:05) Home Medications: Ambulatory Orders Insulin Detemir [Levemir Pen] 30 units SUBCU PRN PRN 08/31/15 Tzbkerdhae-Mmqxqhovbrfjl-Kztsj [Capacet 50-325-40 mg] 1 cap PO DAILY 10/21/15 Cyclobenzaprine Tab (ER Disp) [Flexeril Tab (ER Dispense)] 10 mg PO BEDTIME 10/21/15 Lisinopril 10 mg PO BID 10/21/15 Nitroglycerin [Nitrostat] 0.4 mg SL Q5MIN PRN 10/21/15 Pantoprazole Sodium 40 mg PO DAILY 10/21/15 Allopurinol [Zyloprim] 100 mg PO DAILY 12/21/15 Atorvastatin Calcium [Lipitor] 40 mg PO DAILY 12/21/15 Budes/Formoterol INH 160/4.5 [Symbicort Inhaler 160/4.5] 1 puff INH DAILY 12/21/15 Calcitriol 0.25 mcg PO DAILY 01/14/16 tiZANidine [Zanaflex] 4 mg PO TID PRN #30 tab 01/06/17 Hydrocodone-Acetaminophen 7.5 mg PO PRN PRN 07/09/18 predniSONE 20 mg PO DAILY #3 tab 07/09/18 Amoxicillin & Pot Clavulanate [Augmentin] 875 mg PO BID #20 tab 02/28/19 Review of Systems - Review of Systems Constitutional: States: see HPI, malaise, weakness. Denies: chills, diaphoresis, fever EENTM: States: no symptoms reported Respiratory: States: no symptoms reported Cardiology: States: no symptoms reported Gastrointestinal/Abdominal: States: no symptoms reported Genitourinary: States: no symptoms reported Musculoskeletal: States: no symptoms reported Skin: States: no symptoms reported Neurological: States: weakness Endocrine: States: no symptoms reported Hematologic/Lymphatic: States: no symptoms reported All other Systems: Reviewed and Negative Past Medical History (General) - Patient Medical History Hx Seizures: No Hx Stroke: No Hx Dementia: No Hx Asthma: Yes Hx of COPD: Yes Hx Cardiac Disorders: Yes - arrhythmia Hx Congestive Heart Failure: Yes Hx Pacemaker: No Hx Hypertension: Yes Hx Thyroid Disease: No Hx Diabetes: Yes Hx Gastroesophageal Reflux: No Hx Renal Disease: No Hx Cancer: No Hx of HIV: No Hx Hepatitis C: No Hx MRSA: No Surgical History: coronary bypass surgery - Vaccination History Hx Tetanus, Diphtheria Vaccination: No Hx Influenza Vaccination: No Hx Pneumococcal Vaccination: Yes - Social History Hx Tobacco Use: Yes Hx Alcohol Use: No Hx Substance Use: No Hx Substance Use Treatment: No Hx Depression: No Hx Physical Abuse: No Hx Emotional Abuse: No - Female History Patient is a Female of Child Bearing Age (10 -59 yrs old): No Patient : No Family Medical History - Family History Father Family History: Unknown Name: Robert Mercado Age (years): 69 Living Status: Age at (years of age): 69 Cause of : Natural causes. Hx Family Asthma: - Pt Hx Family Congestive Heart Failure: Yes - Pt Hx Family Hypertension: Yes - Father, siblings Hx Family Stroke: Yes - Mother Hx Cardiac Disease: Yes - Father and siblings Hx Family Diabetes: Yes - Father and sister Hx Family Cancer: No Physical Exam - Physical Exam General Appearance: Alert, Comfortable, Well Developed, Well Hydrated, Well Nourished, Other - no ptosis on his breath. Eye Exam: bilateral normal Ears, Nose, Throat: hearing grossly normal, normal ENT inspection, normal pharynx Neck: non-tender, full range of motion, supple, normal inspection Respiratory: chest non-tender, lungs clear, normal breath sounds, no respiratory distress, no accessory muscle use Cardiovascular/Chest: normal peripheral pulses, regular rate, rhythm, no edema, no gallop, no murmur, other - loud systolic click Peripheral Pulses: radial,right: 2+, radial,left: 2+ Gastrointestinal/Abdominal: normal bowel sounds, non tender, soft, no organomegaly, no pulsatile mass Back Exam: normal inspection, no CVA tenderness, no vertebral tenderness Extremity: normal range of motion, non-tender, normal inspection, no pedal edema Neurologic: flight surgeon II-XII nml as tested, no motor/sensory deficits, alert, normal mood/affect, oriented x 3 Skin Exam: normal color, warm/dry Lymphatic: no adenopathy Progress - Progress Progress: frontal diagnosis: Occasional noncompliance, dietary indiscretion, urinary tract infection, pneumonia among others. 08/26/19 17:38 Patient's markedly improved after IV fluids and IV insulin. Plan on discharge home at this time. I discussed with patient the need for close compliance with diet and medications. Patient voices understanding. Plan discharge home with follow-up with PCP within the next 5 days. Kevyn Raza M.D. #[id number] - Results/Orders Results/Orders: 08/26/19 14:45 EKG STAT Laboratory Results - last 24 hr 08/26/19 08/26/19 08/26/19 14:39 14:51 14:51 WBC RBC Hgb Hct MCV MCH MCHC RDW Plt Count MPV Absolute Neuts (auto) Absolute Lymphs (auto) Absolute Monos (auto) Absolute Eos (auto) Absolute Basos (auto) Neutrophils % Lymphocytes % Monocytes % Eosinophils % Basophils % Sodium 127 L Potassium 4.0 Chloride 90 L Carbon Dioxide 26 Anion Gap 15.0 BUN 46 H Creatinine 2.03 H BUN/Creatinine Ratio 22.7 H POC Glucose > 400 H* Random Glucose 719 H* Serum Osmolality 301.6 H Calcium 9.2 Total Bilirubin 0.9 AST 18 ALT 19 Alkaline Phosphatase 98 Creatine Kinase 109 CK-MB (CK-2) 5.0 H* CK-MB (CK-2) % 4.59 H Troponin I 0.05 B-Natriuretic Peptide 49.3 Serum Total Protein 7.7 Albumin 3.9 Globulin 3.8 H Albumin/Globulin Ratio 1.0 L Urine Color Urine Appearance Urine pH Ur Specific [place] Urine Protein Urine Glucose (UA) Urine Ketones Urine Blood Urine Nitrite Urine Bilirubin Urine Urobilinogen Ur Leukocyte Esterase Urine RBC Urine WBC Ur Epithelial Cells Urine Bacteria 08/26/19 08/26/19 08/26/19 14:51 14:55 15:35 WBC 7.7 RBC 4.43 L Hgb 14.2 Hct 41.0 L MCV 92.4 MCH 31.9 H MCHC 34.5 RDW 12.9 Plt Count 123 L MPV 10.3 Absolute Neuts (auto) 5.80 Absolute Lymphs (auto) 1.10 Absolute Monos (auto) 0.50 Absolute Eos (auto) 0.10 Absolute Basos (auto) 0.10 Neutrophils % 75.4 Lymphocytes % 14.9 L Monocytes % 7.1 Eosinophils % 1.3 Basophils % 1.3 Sodium Potassium Chloride Carbon Dioxide Anion Gap BUN Creatinine BUN/Creatinine Ratio POC Glucose Random Glucose Cancelled Serum Osmolality Calcium Total Bilirubin AST ALT Alkaline Phosphatase Creatine Kinase CK-MB (CK-2) CK-MB (CK-2) % Troponin I B-Natriuretic Peptide Serum Total Protein Albumin Globulin Albumin/Globulin Ratio Urine Color Yellow Urine Appearance Clear Urine pH 5.5 Ur Specific [place] <= 1.005 Urine Protein Negative Urine Glucose (UA) 500 H Urine Ketones Negative Urine Blood Negative Urine Nitrite Negative Urine Bilirubin Negative Urine Urobilinogen 0.2 Ur Leukocyte Esterase Negative Urine RBC 0-1 Urine WBC 0 Ur Epithelial Cells 0 Urine Bacteria 0 08/26/19 08/26/19 16:14 17:33 WBC RBC Hgb Hct MCV MCH MCHC RDW Plt Count MPV Absolute Neuts (auto) Absolute Lymphs (auto) Absolute Monos (auto) Absolute Eos (auto) Absolute Basos (auto) Neutrophils % Lymphocytes % Monocytes % Eosinophils % Basophils % Sodium Potassium Chloride Carbon Dioxide Anion Gap BUN Creatinine BUN/Creatinine Ratio POC Glucose 215 H D Random Glucose 482 H* Serum Osmolality Calcium Total Bilirubin AST ALT Alkaline Phosphatase Creatine Kinase CK-MB (CK-2) CK-MB (CK-2) % Troponin I B-Natriuretic Peptide Serum Total Protein Albumin Globulin Albumin/Globulin Ratio Urine Color Urine Appearance Urine pH Ur Specific [place] Urine Protein Urine Glucose (UA) Urine Ketones Urine Blood Urine Nitrite Urine Bilirubin Urine Urobilinogen Ur Leukocyte Esterase Urine RBC Urine WBC Ur Epithelial Cells Urine Bacteria EXAM DESCRIPTION: XR Chest,1 View CLINICAL HISTORY: 64 years Male, wheezing COMPARISON: April 26, 2019. FINDINGS: Poststernotomy changes are again noted. Heart size appears borderline, although accentuated by technique. The lungs appear basically clear and not hyperinflated. There is slight relative elevation of the left hemidiaphragm. No significant interval change is seen. There is slight patient rotation to the left. IMPRESSION: No radiographic evidence of acute cardiopulmonary disease. Electronically signed by: Dean Patel MD 08/26/2019 4:24 EKG performed on 26 August 2019 at 1456 hrs.: Normal sinus rhythm at 100 bpm, left axis deviation, left ventricular hypertrophy with QRS widening and repolarization abnormalities, abnormal EKG. Comparison with EKG of 13 November 2018 at 1445 hrs., no significant change Departure - Departure Clinical Impression: Hyperglycemia without ketosis, Renal insufficiency, mild Time of Disposition: 17:44 Disposition: Discharge to Home or Self Care Condition: Good Departure Forms: ED Discharge - Pt. Copy, Patient Portal Self Enrollment Instructions: DI for Diabetes Type 2, Chronic Kidney Disease (DC) Referrals: VIOLETTA CHÁVEZ [Primary Care Provider] - 1-5 Days Home Medications: Ambulatory Orders Insulin Detemir [Levemir Pen] 30 units SUBCU PRN PRN 08/31/15 Nqganhzbyz-Rxwdjsxecthlj-Hhlvn [Capacet 50-325-40 mg] 1 cap PO DAILY 10/21/15 Cyclobenzaprine Tab (ER Disp) [Flexeril Tab (ER Dispense)] 10 mg PO BEDTIME 10/21/15 Lisinopril 10 mg PO BID 10/21/15 Nitroglycerin [Nitrostat] 0.4 mg SL Q5MIN PRN 10/21/15 Pantoprazole Sodium 40 mg PO DAILY 10/21/15 Allopurinol [Zyloprim] 100 mg PO DAILY 12/21/15 Atorvastatin Calcium [Lipitor] 40 mg PO DAILY 12/21/15 Budes/Formoterol INH 160/4.5 [Symbicort Inhaler 160/4.5] 1 puff INH DAILY 12/09 11/26 Calcitriol 0.25 mcg PO DAILY 01/14/16 tiZANidine [Zanaflex] 4 mg PO TID PRN #30 tab 01/06/17 Hydrocodone-Acetaminophen 7.5 mg PO PRN PRN 07/09/18 predniSONE 20 mg PO DAILY #3 tab 07/09/18 Amoxicillin & Pot Clavulanate [Augmentin] 875 mg PO BID #20 tab 02/28/19
[2019-08-26] MEDS ORDERED: INSULIN, REG.(HUMAN) 100 U/ML VIAL IV ONE ×2 (15:20→16:38)
--- NOTE | 2019-08-26 16:25 | RAD ---
EXAM DESCRIPTION: XR Chest,1 View CLINICAL HISTORY: 64 years Male, wheezing COMPARISON: April 26, 2019. FINDINGS: Poststernotomy changes are again noted. Heart size appears borderline, although accentuated by technique. The lungs appear basically clear and not hyperinflated. There is slight relative elevation of the left hemidiaphragm. No significant interval change is seen. There is slight patient rotation to the left. IMPRESSION: No radiographic evidence of acute cardiopulmonary disease. Electronically signed by: Dean Patel MD 08/26/2019 4:24 PM [facility] [place]
[2019-08-26 18:03] VITALS: BP 120/86; TEMP 97.3; O2SAT 93
== END 2019-08-26 17:51 | disposition home or self-care (01) ==
LOC: ER 14:16
DX: E11.65 Type 2 diabetes mellitus with hyperglycemia (principal); N28.9 Disorder of kidney and ureter, unspecified; J44.9 Chronic obstructive pulmonary disease, unspecified; I11.0 Hypertensive heart disease with heart failure; I50.9 Heart failure, unspecified; Z95.1 Presence of aortocoronary bypass graft; Z79.899 Other long term (current) drug therapy; R42 Dizziness and giddiness; Z87.891 Personal history of nicotine dependence; Z79.4 Long term (current) use of insulin
CPT/HCPCS: 36415; 36416; 71045; 80053; 81001; 82550; 82553; 82947; 82948; 83880; 84484; 85025; 93005; 94640; J7620

== ENCOUNTER 2019-08-29 14:45 | Emergency (ER) | payer OTHER ==
[2019-08-29 15:06] VITALS: TEMP 98.6
--- NOTE | 2019-08-29 15:25 | ED.PDOC ---
History of Present Illness - General Chief Complaint: Trauma Stated Complaint: fall Time Seen by Provider: 08/29/19 15:22 Source: patient Exam Limitations: no limitations - History of Present Illness Initial Comments: 64 yo M who presents after mechanical fall. Pt states he was walking, tripped, and fell onto his L side, now complaining of L rib/side pain, noted to have abrasion to L knee. L rib/side pain is worse with movements, unaffected by deep inspiration. Denies head trauma, LOC, pain or injury elsewhere. Pt believes he is on a blood thinner but is unsure which one. Pt has a mechanical valve. Denies f/c, cough, congestion, CP, SOB, abd pain, n/v/d, midline back pain, weakness, numbness, change in vision [place]. Allergies/Adverse Reactions: Allergies NO KNOWN ALLERGY Allergy (Verified 02/28/19 12:05) Home Medications: Ambulatory Orders Insulin Detemir [Levemir Pen] 30 units SUBCU PRN PRN 08/31/15 Uaemgzflit-Clbrichsvubze-Mxogh [Capacet 50-325-40 mg] 1 cap PO DAILY 10/21/15 Cyclobenzaprine Tab (ER Disp) [Flexeril Tab (ER Dispense)] 10 mg PO BEDTIME 10/21/15 Lisinopril 10 mg PO BID 10/21/15 Nitroglycerin [Nitrostat] 0.4 mg SL Q5MIN PRN 10/21/15 Pantoprazole Sodium 40 mg PO DAILY 10/21/15 Allopurinol [Zyloprim] 100 mg PO DAILY 12/21/15 Atorvastatin Calcium [Lipitor] 40 mg PO DAILY 12/21/15 Budes/Formoterol INH 160/4.5 [Symbicort Inhaler 160/4.5] 1 puff INH DAILY 12/21/15 Calcitriol 0.25 mcg PO DAILY 01/14/16 tiZANidine [Zanaflex] 4 mg PO TID PRN #30 tab 01/06/17 Hydrocodone-Acetaminophen 7.5 mg PO PRN PRN 07/09/18 predniSONE 20 mg PO DAILY #3 tab 07/09/18 Amoxicillin & Pot Clavulanate [Augmentin] 875 mg PO BID #20 tab 02/28/19 Acetamin W/Cod #3 Tab [Tylenol w/CODEINE #3] 1 ea PO Q8H PRN #12 tab 08/29/19 Review of Systems - Review of Systems Constitutional: Denies: chills, fever EENTM: Denies: blurred vision, double vision Respiratory: Denies: cough, short of breath Cardiology: Denies: chest pain, palpitations, syncope Gastrointestinal/Abdominal: Denies: abdominal pain, diarrhea, nausea, vomiting Genitourinary: Denies: dysuria, frequency, hematuria Musculoskeletal: States: other - L rib pain. Denies: back pain, neck pain Skin: States: other - abrasion L knee Neurological: Denies: headache, numbness, weakness Past Medical History (General) - Patient Medical History Hx Seizures: No Hx Stroke: No Hx Dementia: No Hx Asthma: Yes Hx of COPD: Yes Hx Cardiac Disorders: Yes - arrhythmia Hx Congestive Heart Failure: Yes Hx Pacemaker: No Hx Hypertension: Yes Hx Thyroid Disease: No Hx Diabetes: Yes Hx Gastroesophageal Reflux: No Hx Renal Disease: No Hx Cancer: No Hx of HIV: No Hx Hepatitis C: No Hx MRSA: No Surgical History: coronary bypass surgery, other - Vaccination History Hx Tetanus, Diphtheria Vaccination: No Hx Influenza Vaccination: No Hx Pneumococcal Vaccination: Yes - Social History Hx Tobacco Use: Yes Hx Alcohol Use: No Hx Substance Use: No Hx Substance Use Treatment: No Hx Depression: No Hx Physical Abuse: No Hx Emotional Abuse: No - Female History Patient : No Family Medical History - Family History Father Family History: Unknown Name: Robert Mercado Age (years): 69 Living Status: Age at (years of age): 69 Cause of : Natural causes. Hx Family Asthma: - Pt Hx Family Congestive Heart Failure: Yes - Pt Hx Family Hypertension: Yes - Father, siblings Hx Family Stroke: Yes - Mother Hx Cardiac Disease: Yes - Father and siblings Hx Family Diabetes: Yes - Father and sister Hx Family Cancer: No Physical Exam - Physical Exam General Appearance: Alert, Comfortable, Other - L rib pain with movement Eye Exam: bilateral normal, bilateral abnormal EOM Ears, Nose, Throat: normal ENT inspection Neck: non-tender, full range of motion, supple, normal inspection Respiratory: lungs clear, normal breath sounds, no respiratory distress, no accessory muscle use, other - L rib TTP Cardiovascular/Chest: normal peripheral pulses, regular rate, rhythm, no JVD, other - mechanical click Peripheral Pulses: radial,right: 2+, radial,left: 2+ Gastrointestinal/Abdominal: normal bowel sounds, soft, no organomegaly, no pulsatile mass, tenderness - LUQ, other - No distention, no guarding Back Exam: normal inspection, no CVA tenderness, no vertebral tenderness Extremity: normal range of motion, pedal edema - trace, symmetric BLE, at baseline per pt Neurologic: vp client services II-XII nml as tested, no motor/sensory deficits, alert, normal mood/affect, oriented x 3 Skin Exam: warm/dry, other - abrasion L knee Progress - Progress Progress: 08/29/19 16:22 CKD at baseline, hyperglycemia without signs of DKA, treated with insulin and small 250cc bolus of fluids 2/2 hx of CHF and trace edema on exam, no signs of volume overload, BS <200 at this time. Pt is well appearing, pain controlled, asking to be d/c home, abd exam NT on reevaluation, will send home with IS, discussed DM control. I have explained and reviewed all results with the pt. I explained that emergent conditions may arise and to return to the ER for new, worsening, or any persistent conditions including but not limited to f/c, productive cough, uncontrolled pain, worsening uncontrolled BS, intractable vomiting. I've explained the importance of f/u for recheck. All questions and concerns addressed at this time. Pt understands and agrees with plan. Pt well appearing, NAD, is stable for discharge. Lily Beard MD Emergency Medicine Physician Billing Number [id number] - Results/Orders Results/Orders: 08/29/19 15:25 Hold Metformin x 48Hrs [id number] Laboratory Results - last 24 hr 08/29/19 08/29/19 08/29/19 15:35 15:35 15:35 WBC 7.2 RBC 4.28 L Hgb 13.7 L Hct 40.7 L MCV 95.2 H MCH 32.0 H MCHC 33.6 RDW 12.8 Plt Count 110 L MPV 10.4 Absolute Neuts (auto) 5.50 Absolute Lymphs (auto) 1.00 Absolute Monos (auto) 0.50 Absolute Eos (auto) 0.10 Absolute Basos (auto) 0.10 Neutrophils % 76.3 Lymphocytes % 14.5 L Monocytes % 7.0 Eosinophils % 1.4 Basophils % 0.8 PT 11.3 H INR 1.13 PTT (SP) 20.7 L pCO2 pO2 HCO3 ABG pH ABG O2 Saturation ABG Base Excess ABG Deoxyhemoglobin Oxyhemoglobin % Carboxyhemoglobin % Methemoglobin % Sat Calc Total Hemoglobin Sodium 129 L Potassium 4.3 Chloride 93 L Carbon Dioxide 24 Anion Gap 16.3 BUN 36 H Creatinine 2.05 H BUN/Creatinine Ratio 17.6 POC Glucose Random Glucose 793 H* Serum Osmolality 305.9 H Calcium 8.9 Total Bilirubin 0.8 AST 22 ALT 20 Alkaline Phosphatase 94 Serum Total Protein 7.9 Albumin 3.9 Globulin 4.0 H Albumin/Globulin Ratio 1.0 L Urine Color Urine Appearance Urine pH Ur Specific [place] Urine Protein Urine Glucose (UA) Urine Ketones Urine Blood Urine Nitrite Urine Bilirubin Urine Urobilinogen Ur Leukocyte Esterase Urine RBC Urine WBC Ur Epithelial Cells Amorphous Sediment Urine Bacteria 08/29/19 08/29/19 08/29/19 16:21 17:20 17:32 WBC RBC Hgb Hct MCV MCH MCHC RDW Plt Count MPV Absolute Neuts (auto) Absolute Lymphs (auto) Absolute Monos (auto) Absolute Eos (auto) Absolute Basos (auto) Neutrophils % Lymphocytes % Monocytes % Eosinophils % Basophils % PT INR PTT (SP) pCO2 44 pO2 73 L HCO3 27.3 ABG pH 7.410 ABG O2 Saturation 96.2 ABG Base Excess 2.7 ABG Deoxyhemoglobin 3.7 Oxyhemoglobin % 93.6 L Carboxyhemoglobin % 1.2 Methemoglobin % Sat 1.5 Calc Total Hemoglobin 13.5 Sodium Potassium Chloride Carbon Dioxide Anion Gap BUN Creatinine BUN/Creatinine Ratio POC Glucose > 400 H* D Random Glucose 558 H* Serum Osmolality Calcium Total Bilirubin AST ALT Alkaline Phosphatase Serum Total Protein Albumin Globulin Albumin/Globulin Ratio Urine Color Urine Appearance Urine pH Ur Specific [place] Urine Protein Urine Glucose (UA) Urine Ketones Urine Blood Urine Nitrite Urine Bilirubin Urine Urobilinogen Ur Leukocyte Esterase Urine RBC Urine WBC Ur Epithelial Cells Amorphous Sediment Urine Bacteria 08/29/19 18:10 WBC RBC Hgb Hct MCV MCH MCHC RDW Plt Count MPV Absolute Neuts (auto) Absolute Lymphs (auto) Absolute Monos (auto) Absolute Eos (auto) Absolute Basos (auto) Neutrophils % Lymphocytes % Monocytes % Eosinophils % Basophils % PT INR PTT (SP) pCO2 pO2 HCO3 ABG pH ABG O2 Saturation ABG Base Excess ABG Deoxyhemoglobin Oxyhemoglobin % Carboxyhemoglobin % Methemoglobin % Sat Calc Total Hemoglobin Sodium Potassium Chloride Carbon Dioxide Anion Gap BUN Creatinine BUN/Creatinine Ratio POC Glucose Random Glucose Serum Osmolality Calcium Total Bilirubin AST ALT Alkaline Phosphatase Serum Total Protein Albumin Globulin Albumin/Globulin Ratio Urine Color Yellow Urine Appearance Clear Urine pH 5.5 Ur Specific [place] <= 1.005 Urine Protein Negative Urine Glucose (UA) 500 H Urine Ketones Negative Urine Blood Negative Urine Nitrite Negative Urine Bilirubin Negative Urine Urobilinogen 0.2 Ur Leukocyte Esterase Negative Urine RBC 0-1 Urine WBC 0 Ur Epithelial Cells 0-1 Amorphous Sediment 1+ Urine Bacteria 0 CT abd/pelvis: EXAM: Abdomen/Pelvis w/Contrast CLINICAL INDICATION: Patient fell, pain COMPARISON: There is no previous study for comparison. TECHNIQUE: The CT scan was done using contiguous axial 5 mm postcontrast sections through the abdomen and pelvis including IV contrast. This exam was performed according to our departmental dose-optimization program, which includes automated exposure control, adjustment of the mA and/or kV according to patient size and/or use of iterative reconstruction technique. FINDINGS: The visualized portions of the lung bases are clear. The liver, gallbladder, kidneys, adrenal glands, spleen, and pancreas have a normal CT appearance. The aorta contains atherosclerotic calcifications without evidence of aneurysm. There are no dilated loops of small bowel. There is no free air, free fluid, or abscess. No fractures are identified within the visualized osseous structures. IMPRESSION: No evidence of acute traumatic injury or acute process in the abdomen or pelvis. Electronically signed by: Rohan Flores MD 08/29/2019 4:36 PM HOME WEATHERIZING WORKER L knee XR: EXAM: Knee,Left Complete CLINICAL INDICATION: Left knee trauma, pain COMPARISON: There is no previous study for comparison. FINDINGS: Three views of the left knee reveal no evidence of fracture. There is no knee joint effusion. No significant degenerative joint disease is identified. The osseous structures are intact and unremarkable. IMPRESSION: Negative left knee radiographs. Elect ronically signed by: Rohan Flores MD 08/29/2019 4:25 PM HOME WEATHERIZING WORKER [id number] L rib XR: EXAM: Ribs,Left 3 Views CLINICAL INDICATION: Left rib pain COMPARISON: Chest radiograph same date FINDINGS: 3 views of the left ribs reveal no fractures or bone lesions. The left lung is clear. IMPRESSION: Negative left rib radiographs. Electronically signed by: Rohan Flores MD 08/29/2019 4:25 PM HOME WEATHERIZING WORKER CXR: EXAM: Chest,2 Views CLINICAL INDICATION: Patient fell, pain COMPARISON: 08/26/2019 FINDINGS: Two views of the chest were obtained. The heart size is normal. The pulmonary vascularity is unremarkable. The lungs are clear. Sternotomy wires are noted. There is no pneumothorax or pleural effusion. The visualized osseous structures are unremarkable. IMPRESSION: No acute process in the chest. Electronically signed by: Rohan Flores MD 08/29/2019 4:25 PM HOME WEATHERIZING WORKER Vital Signs - 24 hr 08/29/19 08/29/19 08/29/19 14:50 16:00 17:00 Temperature 98.6 F Pulse Rate [ 103 H 86 84 right brachial] Respiratory 16 16 18 Rate Blood Pressure 126/79 118/74 99/74 [right brachial ] O2 Sat by Pulse 96 94 L 94 L Oximetry Departure - Departure Clinical Impression: Hyperglycemia, CKD (chronic kidney disease) Fall Qualifiers: Encounter type: initial encounter Qualified Code(s): W19.XXXA - Unspecified fall, initial encounter Contusion of rib on left side Qualifiers: Encounter type: initial encounter Qualified Code(s): S20.212A - Contusion of left front wall of thorax, initial encounter Time of Disposition: 18:54 Disposition: Discharge to Home or Self Care Health Concerns: Condition: stable Departure Forms: ED Discharge - Pt. Copy, Patient Portal Self Enrollment Instructions: DI for Trauma, Hyperglycemia, Adult (DC), Bruised Rib (DC) Referrals: VIOLETTA CHÁVEZ [Primary Care Provider] - 1-2 Days Prescriptions: Acetamin W/Cod #3 Tab [Tylenol w/CODEINE #3] 1 ea PO Q8H PRN #12 tab PRN Reason: Pain Home Medications: Ambulatory Orders Insulin Detemir [Levemir Pen] 30 units SUBCU PRN PRN 08/31/15 Kheicomfby-Xvrvmczwhwlcw-Wdupy [Capacet 50-325-40 mg] 1 cap PO DAILY 10/21/15 Cyclobenzaprine Tab (ER Disp) [Flexeril Tab (ER Dispense)] 10 mg PO BEDTIME 10/21/15 Lisinopril 10 mg PO BID 10/21/15 Nitroglycerin [Nitrostat] 0.4 mg SL Q5MIN PRN 10/21/15 Pantoprazole Sodium 40 mg PO DAILY 10/21/15 Allopurinol [Zyloprim] 100 mg PO DAILY 12/21/15 Atorvastatin Calcium [Lipitor] 40 mg PO DAILY 12/21/15 Budes/Formoterol INH 160/4.5 [Symbicort Inhaler 160/4.5] 1 puff INH DAILY 12/21/15 Calcitriol 0.25 mcg PO DAILY 01/14/16 tiZANidine [Zanaflex] 4 mg PO TID PRN #30 tab 01/06/17 Hydrocodone-Acetaminophen 7.5 mg PO PRN PRN 07/09/18 predniSONE 20 mg PO DAILY #3 tab 07/09/18 Amoxicillin & Pot Clavulanate [Augmentin] 875 mg PO BID #20 tab 02/28/19 Acetamin W/Cod #3 Tab [Tylenol w/CODEINE #3] 1 ea PO Q8H PRN #12 tab 08/29/19 Additional Instructions: Follow up: [facility] As needed, if symptoms worsen
[2019-08-29] MEDS: diazePAM 5 MG TAB PO ONE (15:37)
[2019-08-29] MEDS ORDERED: ACETAMINOPHEN IV 1000MG 100 ML ONE (15:45)
[2019-08-29] MEDS: ACETAMINOPHEN IV 1000MG 1,000 MG in PREMIX BOTTLE 1 BOTTLE IVPB ONE (15:48)
--- NOTE | 2019-08-29 16:26 | RAD ---
EXAM: Chest,2 Views CLINICAL INDICATION: Patient fell, pain COMPARISON: 08/26/2019 FINDINGS: Two views of the chest were obtained. The heart size is normal. The pulmonary vascularity is unremarkable. The lungs are clear. Sternotomy wires are noted. There is no pneumothorax or pleural effusion. The visualized osseous structures are unremarkable. IMPRESSION: No acute process in the chest. Electronically signed by: Rohan Flores MD 08/29/2019 4:25 PM APPLICATION TRAINER
--- NOTE | 2019-08-29 16:27 | RAD ---
EXAM: Knee,Left Complete CLINICAL INDICATION: Left knee trauma, pain COMPARISON: There is no previous study for comparison. FINDINGS: Three views of the left knee reveal no evidence of fracture. There is no knee joint effusion. No significant degenerative joint disease is identified. The osseous structures are intact and unremarkable. IMPRESSION: Negative left knee radiographs. Electronically signed by: Rohan Flores MD 08/29/2019 4:25 PM [facility]
--- NOTE | 2019-08-29 16:27 | RAD ---
EXAM: Ribs,Left 3 Views CLINICAL INDICATION: Left rib pain COMPARISON: Chest radiograph same date FINDINGS: 3 views of the left ribs reveal no fractures or bone lesions. The left lung is clear. IMPRESSION: Negative left rib radiographs. Electronically signed by: Rohan Flores MD 08/29/2019 4:25 PM [facility]
[2019-08-29] MEDS: INSULIN, REG.(HUMAN) 100 U/ML VIAL IV ONE ×2 (16:29→17:38)
[2019-08-29] MEDS: SODIUM CHLORIDE 0.9% 1000ML 250 ML IVS ONE (16:29)
--- NOTE | 2019-08-29 16:38 | CT ---
EXAM: Abdomen/Pelvis w/Contrast CLINICAL INDICATION: Patient fell, pain COMPARISON: There is no previous study for comparison. TECHNIQUE: The CT scan was done using contiguous axial 5 mm postcontrast sections through the abdomen and pelvis including IV contrast. This exam was performed according to our departmental dose-optimization program, which includes automated exposure control, adjustment of the mA and/or kV according to patient size and/or use of iterative reconstruction technique. FINDINGS: The visualized portions of the lung bases are clear. The liver, gallbladder, kidneys, adrenal glands, spleen, and pancreas have a normal CT appearance. The aorta contains atherosclerotic calcifications without evidence of aneurysm. There are no dilated loops of small bowel. There is no free air, free fluid, or abscess. No fractures are identified within the visualized osseous structures. IMPRESSION: No evidence of acute traumatic injury or acute process in the abdomen or pelvis. Electronically signed by: Rohan Flores MD 08/29/2019 4:36 PM MANAGER DOMESTIC
[2019-08-29 17:16] VITALS: O2SAT 94
[2019-08-29] MEDS: ACETAMINOPHEN W/COD #3 TAB (ER Disp) PO ONE (19:09)
[2019-08-29 19:15] VITALS: BP 110/74
== END 2019-08-29 19:15 | disposition home or self-care (01) ==
LOC: ER 14:45
DX: S20.212A Contusion of left front wall of thorax, initial encounter (principal); E11.65 Type 2 diabetes mellitus with hyperglycemia; E11.22 Type 2 diabetes mellitus with diabetic chronic kidney disease; N18.9 Chronic kidney disease, unspecified; S80.812A Abrasion, left lower leg, initial encounter; J44.9 Chronic obstructive pulmonary disease, unspecified; I50.9 Heart failure, unspecified; I12.9 Hypertensive chronic kidney disease with stage 1 through stage 4 chronic kidney disease, or unspecified chronic kidney disease; Z95.1 Presence of aortocoronary bypass graft; Z95.2 Presence of prosthetic heart valve; Z79.899 Other long term (current) drug therapy; Z79.01 Long term (current) use of anticoagulants; W01.0XXA Fall on same level from slipping, tripping and stumbling without subsequent striking against object, initial encounter; Y93.01 Activity, walking, marching and hiking; Y92.89 Other specified places as the place of occurrence of the external cause
CPT/HCPCS: 36415; 36416; 36600; 71046; 71101; 73562; 74177; 80053; 81001; 82803; 82805; 82947; 82948; 85025; 85610; 85730; J7030

== ENCOUNTER 2019-09-02 06:33 | Emergency (ER) | payer OTHER ==
[2019-09-02] MEDS ORDERED: SODIUM CHLORIDE 0.9% 1000ML 1,000 ML IVS PRN (06:41)
[2019-09-02] MEDS ORDERED: SODIUM CHLORIDE 0.9% (FLUSH) 10 ML SYG IV PRN ×2 (06:41→08:00)
[2019-09-02] MEDS ORDERED: SODIUM CHLORIDE 0.9% 1000ML 1,000 ML IVS ONE (06:47)
--- NOTE | 2019-09-02 06:47 | ED.PDOC ---
History of Present Illness - General Source: patient, RN notes reviewed, Vital Signs reviewed, EMS notes reviewed, old records Exam Limitations: clinical condition - History of Present Illness Initial Comments: Pt is a 64 yo male with multiple medical problems who presents to ED via EMS. Per EMS, patients family found him asleep on the floor by his bed and difficult to arouse so called EMS. On scene, he was somnolent, but would arouse to talk. Pt denies falling or any pain at this time. He awakens to answer questions, then falls back to sleep. Per family, he took Tylenol #3 last night before bed, but has had no other sedatives. Pt unable to give further history at this time. <Dayron Becerra - Last Filed: 09/02/19 07:09> <Lily Beard - Last Filed: 09/02/19 10:17> - General Chief Complaint: General Stated Complaint: Pt's family found him sitting asleep on the floor Time Seen by Provider: 09/02/19 06:39 - History of Present Illness Allergies/Adverse Reactions: Allergies NO KNOWN ALLERGY Allergy (Verified 09/02/19 06:42) Home Medications: Ambulatory Orders Insulin Detemir [Levemir Pen] 30 units SUBCU PRN PRN 08/31/15 Ujqtxbexbs-Elklhjlfsopds-Jhkiz [Capacet 50-325-40 mg] 1 cap PO DAILY 10/21/15 Cyclobenzaprine Tab (ER Disp) [Flexeril Tab (ER Dispense)] 10 mg PO BEDTIME 10/21/15 Lisinopril 10 mg PO BID 10/21/15 Nitroglycerin [Nitrostat] 0.4 mg SL Q5MIN PRN 10/21/15 Pantoprazole Sodium 40 mg PO DAILY 10/21/15 Allopurinol [Zyloprim] 100 mg PO DAILY 12/21/15 Atorvastatin Calcium [Lipitor] 40 mg PO DAILY 12/21/15 Budes/Formoterol INH 160/4.5 [Symbicort Inhaler 160/4.5] 1 puff INH DAILY 12/21/15 Calcitriol 0.25 mcg PO DAILY 01/14/16 tiZANidine [Zanaflex] 4 mg PO TID PRN #30 tab 01/06/17 Hydrocodone-Acetaminophen 7.5 mg PO PRN PRN 07/09/18 predniSONE 20 mg PO DAILY #3 tab 07/09/18 Amoxicillin & Pot Clavulanate [Augmentin] 875 mg PO BID #20 tab 02/28/19 Acetamin W/Cod #3 Tab [Tylenol w/CODEINE #3] 1 ea PO Q8H PRN #12 tab 08/29/19 Review of Systems - Review of Systems Unable to Obtain Due To: clinical condition, other - Pt somnolent and unable to participate in full ROS. He denies any pain at this time <Dayron Becerra - Last Filed: 09/02/19 07:09> Past Medical History (General) - Patient Medical History Hx Seizures: No Hx Stroke: No Hx Dementia: No Hx Asthma: Yes Hx of COPD: Yes Hx Cardiac Disorders: Yes - arrhythmia Hx Congestive Heart Failure: Yes Hx Pacemaker: No Hx Hypertension: Yes Hx Thyroid Disease: No Hx Diabetes: Yes Hx Gastroesophageal Reflux: No Hx Renal Disease: No Hx Cancer: No Hx of HIV: No Hx Hepatitis C: No Hx MRSA: No - Vaccination History Hx Tetanus, Diphtheria Vaccination: No Hx Influenza Vaccination: No Hx Pneumococcal Vaccination: Yes - Social History Hx Tobacco Use: Yes Hx Alcohol Use: No Hx Substance Use: No Hx Substance Use Treatment: No Hx Depression: No Hx Physical Abuse: No Hx Emotional Abuse: No - Female History Patient : No <Dayron Becerra - Last Filed: 09/02/19 07:09> Family Medical History - Family History Father Family History: Unknown Name: Robert Mercado Age (years): 69 Living Status: Age at (years of age): 69 Cause of : Natural causes. Hx Family Asthma: - Pt Hx Family Congestive Heart Failure: Yes - Pt Hx Family Hypertension: Yes - Father, siblings Hx Family Stroke: Yes - Mother Hx Cardiac Disease: Yes - Father and siblings Hx Family Diabetes: Yes - Father and sister Hx Family Cancer: No <Dayron Becerra - Last Filed: 09/02/19 07:09> Physical Exam - Physical Exam General Appearance: Unkempt, Other - Lying on gurney. Awakens to voice then falls back to sleep Eye Exam: bilateral normal - PERRL, 4 mm Ears, Nose, Throat: other - dry oral mucosa Neck: non-tender, full range of motion, supple, other - No C, T, L spine tenderness Respiratory: chest non-tender, lungs clear, normal breath sounds, no respiratory distress, no accessory muscle use Cardiovascular/Chest: normal peripheral pulses, regular rate, rhythm, no murmur Gastrointestinal/Abdominal: non tender, soft, no pulsatile mass Back Exam: normal inspection, no vertebral tenderness Extremity: other - No bony tenderness. Passive ROM in all extremities Neurologic: other - Awakens to voice and pain. Somnolent. 5/5 florist supplies salesperson strength bilaterally. 5/5 plantar and dorsiflexion bilaterally. Oriented to person and place Skin Exam: other - No abrasions or ecchymosis <Dayron Becerra - Last Filed: 09/02/19 07:09> Progress - Progress Progress: 09/02/19 06:59 Care transferred to oncoming physician prior to completed results. - EKG/XRAY/CT Comments: sinus tachycardia with frequent PVC's, wide QRS, nonspecific ST abnormality <Dayron Becerra - Last Filed: 09/02/19 07:09> - Progress Progress: 09/02/19 08:04 Pt awake to tactile stimuli, answers questions appropriately but quickly falls back asleep. Pt is volume overloaded on exam, trop elevated, likely from strain, asa given. CXR concerning for volume vs pneumonia. Sepsis workup completed and antibx ordered, however deferring fluids at this time 2/2 volume overload on exam with 2+ pitting edema symmetric to BLE, given 40mg IV lasix, pt did receive approximately 750cc prior to my care in case. Pt has continued R lower rib pain, from previous visit, dx with rib contusion after unremarkable trauma workup after a fall. Has been taking tylenol #3 as prescribed, pupils were not pinpoint on arrival or on my evaluation. Discussed with and pt need for transfer, she agrees with plan of care. Pt accepted to [facility] for transfer to ED. Lily Beard MD Emergency Medicine Physician Billing Number [id number] - Results/Orders Results/Orders: Laboratory Results - last 24 hr 09/02/19 09/02/19 09/02/19 06:58 06:58 06:58 WBC 12.2 H RBC 4.06 L Hgb 13.0 L Hct 37.7 L MCV 92.9 MCH 31.9 H MCHC 34.3 RDW 12.8 Plt Count 111 L MPV 9.6 Absolute Neuts (auto) 10.70 H Absolute Lymphs (auto) 0.50 L Absolute Monos (auto) 0.90 H Absolute Eos (auto) 0.00 Absolute Basos (auto) 0.10 Neutrophils % 87.6 H Lymphocytes % 4.2 L Monocytes % 7.3 Eosinophils % 0.2 L Basophils % 0.7 PT 12.3 H INR 1.23 H PTT (SP) 29.1 Sodium 134 L Potassium 4.2 Chloride 97 L Carbon Dioxide 22 Anion Gap 19.2 H BUN 45 H Creatinine 2.26 H BUN/Creatinine Ratio 19.9 Random Glucose 245 H Serum Osmolality 287.9 Calcium 8.6 Phosphorus Magnesium Total Bilirubin 1.6 H AST 54 H ALT 23 Alkaline Phosphatase 89 Creatine Kinase 2491 H* CK-MB (CK-2) 33.1 H* CK-MB (CK-2) % 1.33 Troponin I 0.06 H Serum Total Protein 7.8 Albumin 4.0 Globulin 3.8 H Albumin/Globulin Ratio 1.1 Salicylates 4.0 Acetaminophen < 10.0 L Ethyl Alcohol 09/02/19 09/02/19 06:58 07:06 WBC RBC Hgb Hct MCV MCH MCHC RDW Plt Count MPV Absolute Neuts (auto) Absolute Lymphs (auto) Absolute Monos (auto) Absolute Eos (auto) Absolute Basos (auto) Neutrophils % Lymphocytes % Monocytes % Eosinophils % Basophils % PT INR PTT (SP) Sodium Potassium Chloride Carbon Dioxide Anion Gap BUN Creatinine BUN/Creatinine Ratio Random Glucose Serum Osmolality Calcium Phosphorus 2.7 Magnesium 2.0 Total Bilirubin AST ALT Alkaline Phosphatase Creatine Kinase CK-MB (CK-2) CK-MB (CK-2) % Troponin I Serum Total Protein Albumin Globulin Albumin/Globulin Ratio Salicylates Acetaminophen Ethyl Alcohol < 5.40 CT c spine: EXAM: CT cervical spine without contrast. INDICATION: Trauma. Neck pain. TECHNIQUE: Contiguous axial CT images of the cervical spine. Intravenous contrast: Absent. Reformats: MPRs created and utilized. DLP 420 mGy-cm. This exam was performed according to our departmental dose-optimization program, which includes automated exposure control, adjustment of the mA and/or kV according to patient size and/or use of iterative reconstruction technique. COMPARISON: None. FINDINGS: Alignment: Preserved. Fracture: No acute fracture or subluxation. Odontoid process: Intact. Prevertebral soft tissues: No edema. Spondylosis: There is multilevel spondylosis, most notably at C3-C4 and C4-C5 with disc space narrowing, endplate sclerosis, subchondral cysts and marginal osteophytes. There is mild bilateral neural foraminal narrowing at these levels. Other: None. IMPRESSION: 1. No CT evidence of acute osseous injury of the cervical spine. Electronically signed by: Ermias Abdi MD 09/02/2019 7:44 AM INVESTMENT ACCOUNTING CLERK CT head: EXAM: CT head without contrast. INDICATION: AMS. TECHNIQUE: Contiguous axial CT images of the brain. Intravenous contrast: Absent. DLP 859 mGy-cm. This exam was performed according to our departmental dose-optimization program, which includes automated exposure control, adjustment of the mA and/or kV according to patient size and/or use of iterative reconstruction technique. COMPARISON: 11/13/2018. FINDINGS: Subcutaneous: Unremarkable. No acute intracranial hemorrhage. No midline shift. No mass effect. Ventricles: No hydrocephalus. Chisholm-white differentiation preserved. Paranasal sinuses/mastoid air cells: Mucus retention cysts are in the right maxillary sinus. Bones/orbits: Extensive periodontal disease is again noted with periapical lucencies involving the left maxillary central incisor and right maxillary lateral incisor. No depressed calvarial fracture. IMPRESSION: 1. No CT evidence of acute intracranial hemorrhage. XR pelvis: EXAM: AP view(s) of the pelvis. INDICATION: Pain. COMPARISON: None. FINDINGS: No definite displaced fracture or dislocation is identified. There is foreshortening of the left femoral neck, which may be due to positioning. The pubic symphysis and sacroiliac joints appear intact. IMPRESSION: Foreshortening of the left femoral neck, which may be due to positioning or possibly a fracture. If there is concern for a fracture, recommend dedicated images of the left hip.. Electronically signed by: Ermias Abdi MD 09/02/2019 7:52 AM INVESTMENT ACCOUNTING CLERK CXR: EXAM: Single view chest. INDICATION: AMS. COMPARISON: Chest x-ray: 08/29/2019. FINDINGS: There is pulmonary vascular congestion with diffuse interstitial opacities, most notably along the left perihilar and left basilar region. The heart size is stable. There is no pneumothorax. A small left pleural effusion may be present. The bones are unremarkable. IMPRESSION: Pulmonary vascular congestion with diffuse interstitial opacities, worse along the left lung. This may represent pulmonary edema and/or pneumonia. Electronically signed by: Ermias Abdi MD 09/02/2019 7:49 AM INVESTMENT ACCOUNTING CLERK Vital Signs - 24 hr 09/02/19 09/02/19 09/02/19 06:41 06:48 08:00 Temperature 98.2 F Pulse Rate [ 116 H 116 H 100 H Monitor] Respiratory 12 12 12 Rate Blood Pressure 124/84 128/85 [L brachial] O2 Sat by Pulse 89 L 96 Oximetry - EKG/XRAY/CT EKG: nonspecific ST T wave Chg Comments: sinus tachycardia with frequent PVC's, interventricular conduction delay <Lily Beard - Last Filed: 09/02/19 10:17> Departure <Dayron Becerra - Last Filed: 09/02/19 07:09> - Departure Time of Disposition: 08:21 <Lily Beard - Last Filed: 09/02/19 10:17> - Departure Clinical Impression: Altered mental state Qualifiers: Altered mental status type: unspecified Qualified Code(s): R41.82 - Altered mental status, unspecified Volume overload Qualifiers: Hypervolemia type: unspecified Qualified Code(s): E87.70 - Fluid overload, un specified Pneumonia Qualifiers: Pneumonia type: due to unspecified organism Laterality: unspecified laterality Lung location: unspecified part of lung Qualified Code(s): J18.9 - Pneumonia, unspecified organism CKD (chronic kidney disease) Qualifiers: Chronic kidney disease stage: unspecified stage Qualified Code(s): N18.9 - Chronic kidney disease, unspecified Disposition: Transfer to Hospital Condition: Poor Referrals: VIOLETTA CHÁVEZ [Primary Care Provider] - 1-2 Weeks Home Medications: Ambulatory Orders Insulin Detemir [Levemir Pen] 30 units SUBCU PRN PRN 08/31/15 Zifslqjpsm-Xakwllfdyvnts-Qnmcd [Capacet 50-325-40 mg] 1 cap PO DAILY 10/21/15 Cyclobenzaprine Tab (ER Disp) [Flexeril Tab (ER Dispense)] 10 mg PO BEDTIME 10/21/15 Lisinopril 10 mg PO BID 01/11/16 Nitroglycerin [Nitrostat] 0.4 mg SL Q5MIN PRN 10/21/15 Pantoprazole Sodium 40 mg PO DAILY 10/21/15 Allopurinol [Zyloprim] 100 mg PO DAILY 12/21/15 Atorvastatin Calcium [Lipitor] 40 mg PO DAILY 12/21/15 Budes/Formoterol INH 160/4.5 [Symbicort Inhaler 160/4.5] 1 puff INH DAILY 12/21/15 Calcitriol 0.25 mcg PO DAILY 01/14/16 tiZANidine [Zanaflex] 4 mg PO TID PRN #30 tab 01/06/17 Hydrocodone-Acetaminophen 7.5 mg PO PRN PRN 07/09/18 predniSONE 20 mg PO DAILY #3 tab 07/09/18 Amoxicillin & Pot Clavulanate [Augmentin] 875 mg PO BID #20 tab 02/28/19 Acetamin W/Cod #3 Tab [Tylenol w/CODEINE #3] 1 ea PO Q8H PRN #12 tab 08/29/19
--- NOTE | 2019-09-02 07:45 | CT ---
EXAM: CT cervical spine without contrast. INDICATION: Trauma. Neck pain. TECHNIQUE: Contiguous axial CT images of the cervical spine. Intravenous contrast: Absent. Reformats: MPRs created and utilized. DLP 420 mGy-cm. This exam was performed according to our departmental dose-optimization program, which includes automated exposure control, adjustment of the mA and/or kV according to patient size and/or use of iterative reconstruction technique. COMPARISON: None. FINDINGS: Alignment: Preserved. Fracture: No acute fracture or subluxation. Odontoid process: Intact. Prevertebral soft tissues: No edema. Spondylosis: There is multilevel spondylosis, most notably at C3-C4 and C4-C5 with disc space narrowing, endplate sclerosis, subchondral cysts and marginal osteophytes. There is mild bilateral neural foraminal narrowing at these levels. Other: None. IMPRESSION: 1. No CT evidence of acute osseous injury of the cervical spine. Electronically signed by: Ermias Abdi MD 09/02/2019 7:44 AM [facility]
--- NOTE | 2019-09-02 07:50 | CT ---
EXAM: CT head without contrast. INDICATION: AMS. TECHNIQUE: Contiguous axial CT images of the brain. Intravenous contrast: Absent. DLP 859 mGy-cm. This exam was performed according to our departmental dose-optimization program, which includes automated exposure control, adjustment of the mA and/or kV according to patient size and/or use of iterative reconstruction technique. COMPARISON: 11/13/2018. FINDINGS: Subcutaneous: Unremarkable. No acute intracranial hemorrhage. No midline shift. No mass effect. Ventricles: No hydrocephalus. Chisholm-white differentiation preserved. Paranasal sinuses/mastoid air cells: Mucus retention cysts are in the right maxillary sinus. Bones/orbits: Extensive periodontal disease is again noted with periapical lucencies involving the left maxillary central incisor and right maxillary lateral incisor. No depressed calvarial fracture. IMPRESSION: 1. No CT evidence of acute intracranial hemorrhage. Electronically signed by: Ermias Abdi MD 09/02/2019 7:48 AM [facility]
--- NOTE | 2019-09-02 07:51 | RAD ---
EXAM: Single view chest. INDICATION: AMS. COMPARISON: Chest x-ray: 08/29/2019. FINDINGS: There is pulmonary vascular congestion with diffuse interstitial opacities, most notably along the left perihilar and left basilar region. The heart size is stable. There is no pneumothorax. A small left pleural effusion may be present. The bones are unremarkable. IMPRESSION: Pulmonary vascular congestion with diffuse interstitial opacities, worse along the left lung. This may represent pulmonary edema and/or pneumonia. Electronically signed by: Ermias Abdi MD 09/02/2019 7:49 AM CABINET ASSEMBLER
--- NOTE | 2019-09-02 07:54 | RAD ---
EXAM: AP view(s) of the pelvis. INDICATION: Pain. COMPARISON: None. FINDINGS: No definite displaced fracture or dislocation is identified. There is foreshortening of the left femoral neck, which may be due to positioning. The pubic symphysis and sacroiliac joints appear intact. IMPRESSION: Foreshortening of the left femoral neck, which may be due to positioning or possibly a fracture. If there is concern for a fracture, recommend dedicated images of the left hip.. Electronically signed by: Ermias Abdi MD 09/02/2019 7:52 AM [facility]
[2019-09-02] MEDS ORDERED: CEFEPIME 2 GM in SODIUM CHL 0.9% 50ML MIN-BAG+ 50 ML IVPB ONE (08:01)
[2019-09-02] MEDS ORDERED: ASPIRIN (CHEWABLE) 81 MG TAB PO ONE (08:01)
[2019-09-02] MEDS ORDERED: FUROSEMIDE INJ 40 MG/4 ML VIAL IV ONE (08:01)
[2019-09-02] MEDS ORDERED: CEFEPIME 2 GM VIAL ONE (08:05)
[2019-09-02] MEDS ORDERED: SODIUM CHL 0.9% 50ML MIN-BAG+ 50 ML IVPB ONE (08:06)
[2019-09-02 09:59] VITALS: BP 109/76; TEMP 98.2; O2SAT 97
== END 2019-09-02 09:55 | disposition short-term general hospital (02) ==
LOC: ER 06:33
DX: J18.9 Pneumonia, unspecified organism (principal); R41.82 Altered mental status, unspecified; E87.70 Fluid overload, unspecified; N18.9 Chronic kidney disease, unspecified; R00.0 Tachycardia, unspecified; I49.3 Ventricular premature depolarization; I45.89 Other specified conduction disorders; M47.812 Spondylosis without myelopathy or radiculopathy, cervical region; R60.0 Localized edema; J44.9 Chronic obstructive pulmonary disease, unspecified; I50.9 Heart failure, unspecified; E11.22 Type 2 diabetes mellitus with diabetic chronic kidney disease; I13.0 Hypertensive heart and chronic kidney disease with heart failure and stage 1 through stage 4 chronic kidney disease, or unspecified chronic kidney disease; Z87.891 Personal history of nicotine dependence; Z79.899 Other long term (current) drug therapy; Z79.4 Long term (current) use of insulin
CPT/HCPCS: 36415; 36600; 70450; 71045; 72125; 72170; 80053; 80307; 80320; 80329; 81001; 82550; 82553; 82803; 82805; 83605; 83735; 83880; 84100; 84484; 85025; 85610; 85730; 87040; 93005; J0692; J1940; J7030; J7050

== ENCOUNTER 2019-09-18 01:31 | Emergency (ER) | payer OTHER ==
[2019-09-18 01:47] VITALS: BP 151/93; TEMP 98; O2SAT 95
[2019-09-18] MEDS: HYDROcodone 7.5MG/APAP 325MG 1 EA TAB PO ONE (01:55)
--- NOTE | 2019-09-18 02:05 | ED.PDOC ---
History of Present Illness - General Chief Complaint: Back Pain or Injury Stated Complaint: left rib/back pain from fall 2 wks ago Time Seen by Provider: 09/18/19 01:35 Source: patient Exam Limitations: no limitations - History of Present Illness Initial Comments: the patient is a 64-year-old male presenting to the emergency room secondary to left sided lateral rib discomfort. It is worse with movement and taking a deep breath. Lung sounds are clear underneath. No real abdominal pain. No syncope or near syncope. Has been present since a fall approximately 2-3 weeks ago. He had x-rays at that time showing no fracture. The patient is oxygenating well. No visible bruising. He is tender to palpation over this area. No crepitus. Timing/Duration: other - 2-3 weeks Severity: moderate Improving Factors: immobilization Worsening Factors: movement Associated Symptoms: denies symptoms Allergies/Adverse Reactions: Allergies NO KNOWN ALLERGY Allergy (Verified 09/18/19 01:45) Home Medications: Ambulatory Orders Insulin Detemir [Levemir Pen] 30 units SUBCU PRN PRN 08/31/15 Rgpnpcktvi-Gfkwdeurbvbaz-Oeyxm [Capacet 50-325-40 mg] 1 cap PO DAILY 10/21/15 Cyclobenzaprine Tab (ER Disp) [Flexeril Tab (ER Dispense)] 10 mg PO BEDTIME 10/21/15 Lisinopril 10 mg PO BID 10/21/15 Nitroglycerin [Nitrostat] 0.4 mg SL Q5MIN PRN 10/21/15 Pantoprazole Sodium 40 mg PO DAILY 10/21/15 Allopurinol [Zyloprim] 100 mg PO DAILY 12/21/15 Atorvastatin Calcium [Lipitor] 40 mg PO DAILY 12/21/15 Budes/Formoterol INH 160/4.5 [Symbicort Inhaler 160/4.5] 1 puff INH DAILY 12/21/15 Calcitriol 0.25 mcg PO DAILY 01/14/16 tiZANidine [Zanaflex] 4 mg PO TID PRN #30 tab 01/06/17 Hydrocodone-Acetaminophen 7.5 mg PO PRN PRN 07/09/18 predniSONE 20 mg PO DAILY #3 tab 07/09/18 Amoxicillin & Pot Clavulanate [Augmentin] 875 mg PO BID #20 tab 02/28/19 Acetamin W/Cod #3 Tab [Tylenol w/CODEINE #3] 1 ea PO Q8H PRN #12 tab 08/29/19 Tramadol HCl 50 mg PO Q8HR PRN #20 tab 09/18/19 Review of Systems - Review of Systems Constitutional: States: no symptoms reported EENTM: States: no symptoms reported Respiratory: States: no symptoms reported Cardiology: States: chest pain Gastrointestinal/Abdominal: States: no symptoms reported Genitourinary: States: no symptoms reported Musculoskeletal: States: no symptoms reported Skin: States: no symptoms reported Neurological: States: no symptoms reported Endocrine: States: no symptoms reported All other Systems: No Change from Baseline Past Medical History (General) - Patient Medical History Hx Seizures: No Hx Stroke: No Hx Dementia: No Hx Asthma: Yes Hx of COPD: Yes Hx Cardiac Disorders: Yes - arrhythmia Hx Congestive Heart Failure: Yes Hx Pacemaker: No Hx Hypertension: Yes Hx Thyroid Disease: No Hx Diabetes: Yes Hx Gastroesophageal Reflux: No Hx Renal Disease: No Hx Cancer: No Hx of HIV: No Hx Hepatitis C: No Hx MRSA: No - Vaccination History Hx Tetanus, Diphtheria Vaccination: No Hx Influenza Vaccination: No Hx Pneumococcal Vaccination: No - Social History Hx Tobacco Use: Yes Hx Alcohol Use: No Hx Substance Use: No Hx Substance Use Treatment: No Hx Depression: No Hx Physical Abuse: No Hx Emotional Abuse: No - Female History Patient : No Family Medical History - Family History Father Family History: Unknown Name: Robert Mercado Age (years): 69 Living Status: Age at (years of age): 69 Cause of : Natural causes. Hx Family Asthma: - Pt Hx Family Congestive Heart Failure: Yes - Pt Hx Family Hypertension: Yes - Father, siblings Hx Family Stroke: Yes - Mother Hx Cardiac Disease: Yes - Father and siblings Hx Family Diabetes: Yes - Father and sister Hx Family Cancer: No Physical Exam - Physical Exam General Appearance: Alert, No apparent distress Eye Exam: bilateral normal Ears, Nose, Throat: hearing grossly normal, normal pharynx Neck: full range of motion, supple Respiratory: lungs clear, normal breath sounds, no respiratory distress, no accessory muscle use, other - see history of present illness Cardiovascular/Chest: normal peripheral pulses, other - egular rate Peripheral Pulses: radial,right: 2+, radial,left: 2+ Gastrointestinal/Abdominal: non tender, soft Rectal Exam: deferred Back Exam: no vertebral tenderness Extremity: normal range of motion, no calf tenderness, normal capillary refill, other - trace edema to bilateral lower extremities 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 The patient has run out of his pain medication. Will be written for a short prescription of tramadol. He needs to follow back up with his primary care doctor in a few days for longer-term management. He also does need to do deep breathing exercises and make himself cough in order to prevent pneumonia formation. two-view chest x-ray was reassuring today. ER warnings were given. Steroids are being avoided secondary to diabetes. - Results/Orders Results/Orders: I see no evidence of any significant pulmonary infiltrate or obvious displaced rib fracture on the two-view chest x-ray. No evidence of pneumothorax. Departure - Departure Clinical Impression: Chest wall muscle strain Qualifiers: Encounter type: subsequent encounter Qualified Code(s): S29.011D - Strain of muscle and tendon of front wall of thorax, subsequent encounter Disposition: Discharge to Home or Self Care Condition: Fair Departure Forms: ED Discharge - Pt. Copy, Patient Portal Self Enrollment Instructions: Costochondritis (DC) Diet: diabetic diet Activity: increase activity as tolerated Referrals: VIOLETTA CHÁVEZ [Primary Care Provider] - 1-5 Days Prescriptions: Tramadol HCl 50 mg PO Q8HR PRN #20 tab PRN Reason: Moderate Pain Home Medications: Ambulatory Orders Insulin Detemir [Levemir Pen] 30 units SUBCU PRN PRN 08/31/15 Pzonebkgtz-Huzbhjewkkxtl-Hdsnu [Capacet 50-325-40 mg] 1 cap PO DAILY 10/21/15 Cyclobenzaprine Tab (ER Disp) [Flexeril Tab (ER Dispense)] 10 mg PO BEDTIME 10/21/15 Lisinopril 10 mg PO BID 10/21/15 Nitroglycerin [Nitrostat] 0.4 mg SL Q5MIN PRN 10/21/15 Pantoprazole Sodium 40 mg PO DAILY 10/21/15 Allopurinol [Zyloprim] 100 mg PO DAILY 12/21/15 Atorvastatin Calcium [Lipitor] 40 mg PO DAILY 12/21/15 Budes/Formoterol INH 160/4.5 [Symbicort Inhaler 160/4.5] 1 puff INH DAILY 12/21/15 Calcitriol 0.25 mcg PO DAILY 01/14/16 tiZANidine [Zanaflex] 4 mg PO TID PRN #30 tab 01/06/17 Hydrocodone-Acetaminophen 7.5 mg PO PRN PRN 07/09/18 predniSONE 20 mg PO DAILY #3 tab 07/09/18 Amoxicillin & Pot Clavulanate [Augmentin] 875 mg PO BID #20 tab 02/28/19 Acetamin W/Cod #3 Tab [Tylenol w/CODEINE #3] 1 ea PO Q8H PRN #12 tab 08/29/19 Tramadol HCl 50 mg PO Q8HR PRN #20 tab 09/18/19 Additional Instructions: the patient is a 64-year-old male presenting to the emergency room secondary to left lateral rib pain related to a fall a couple of weeks ago. The patient has run out of his pain medication. Will be written for a short prescription of tramadol. He needs to follow back up with his primary care doctor in a few days for longer-term management. He also does need to do deep breathing exercises and make himself cough in order to prevent pneumonia formation. two-view chest x-ray was reassuring today. ER warnings were given.
--- NOTE | 2019-09-18 02:08 | RAD ---
EXAM: XR Chest, 2 Views CLINICAL HISTORY: The patient is 64 years old and is Male; left sided rib pain from fall 2 weeks ago. TECHNIQUE: Frontal and lateral views of the chest. COMPARISON: Chest radiograph from 09/02/2019 FINDINGS: LUNGS: Unremarkable. No consolidation. PLEURAL SPACE: Unremarkable. No pneumothorax. HEART: Stable mild enlargement of the cardiac silhouette. Prosthetic heart valve in place. MEDIASTINUM: Unremarkable. BONES/JOINTS: Post-sternotomy changes are noted. No acute fracture. Mild degenerative changes of the spine. IMPRESSION: No acute findings visualized in the chest. Electronically signed by: Peace Damico MD 09/18/2019 2:07 AM [employer]YROLL AND B[employer]EFITS MANAGER
== END 2019-09-18 02:14 | disposition home or self-care (01) ==
LOC: ER 01:31
DX: S29.011D Strain of muscle and tendon of front wall of thorax, subsequent encounter (principal); E11.9 Type 2 diabetes mellitus without complications; J44.9 Chronic obstructive pulmonary disease, unspecified; I50.9 Heart failure, unspecified; I11.0 Hypertensive heart disease with heart failure; Z79.4 Long term (current) use of insulin; Z79.899 Other long term (current) drug therapy; Z87.891 Personal history of nicotine dependence; W19.XXXD Unspecified fall, subsequent encounter; Y92.9 Unspecified place or not applicable

== ENCOUNTER 2019-10-11 20:31 | Observation (INO) | payer OTHER ==
[2019-10-11] MEDS ORDERED: NITROGLYCERIN 0.4 MG 25 EA TAB SL ONE ×2 (20:40→20:42)
[2019-10-11] MEDS ORDERED: HYDROcodone 7.5MG/APAP 325MG 1 EA TAB PO ONE (20:42)
[2019-10-11] MEDS ORDERED: ALUM & MAG HYDROX-SIMETHICONE 30 ML, LIDOCAINE VISCOUS 2% 15 ML PO ONE ×2 (20:42)
[2019-10-11] MEDS ORDERED: LIDOCAINE HCL 2% (MOUTH-THROAT) 15 ML UD ONE (20:49)
[2019-10-11] MEDS ORDERED: ALUM & MAG HYDROX-SIMETHICONE 30 ML UD ONE (20:49)
--- NOTE | 2019-10-11 21:18 | RAD ---
EXAM DESCRIPTION: Chest,2 Views CLINICAL HISTORY: 64 years Male chest pain COMPARISON: 09/18/2019 FINDINGS: The cardiomediastinal silhouette appears unremarkable. No consolidating infiltrates or pleural effusions. No pneumothorax. Lungs are hyperinflated with flattening of the hemidiaphragms. Median sternotomy wires are present. IMPRESSION: No acute abnormality is identified. COPD Electronically signed by: Parris Riley MD 10/11/2019 9:17 PM AURIST
[2019-10-11] MEDS ORDERED: INSULIN LISPRO 100 UNITS/ML PEN SUBCU ONE (21:20)
[2019-10-11] MEDS ORDERED: INSULIN DETEMIR 100 UNITS/ML PEN SUBCU ONE (21:20)
[2019-10-11] MEDS ORDERED: SODIUM CHLORIDE 0.9% 1000ML 1,000 ML IVS ONE (21:21)
[2019-10-11] MEDS ORDERED: IPRATROPIUM/ALBUTEROL 3 ML VIAL NEB ONE (21:23)
[2019-10-11] MEDS ORDERED: ENOXAPARIN SODIUM 80 MG/0.8 ML SYG SUBCU ONE (21:27)
--- NOTE | 2019-10-12 00:26 | ED.PDOC ---
History of Present Illness - General Chief Complaint: Chest Pain/UT Stated Complaint: chest pain Time Seen by Provider: 10/11/19 20:33 Source: patient Exam Limitations: no limitations - History of Present Illness Initial Comments: the patient is a 64-year-old male presenting to the emergency room secondary to chest pain that central and mild to moderate in nature starting while he was sitting on the couch this evening. It is somewhat dull in nature. He took one of his old nitroglycerin which helped a little bit. He does have chronic costochondritis which confuses the picture along with long-standing GERD. He has recently had an upper respiratory tract infection and does have COPD. He does have some scattered wheezes on lung exam and some mild decreased air movement. He did take an aspirin prior to coming here. Chest pain ceases within 30 minutes of arrival. Nothing seemed to maybe chest pain better or worse in particular. The patient is a little bit anxious upon arrival. 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 He does have significant coronary artery disease history. Timing/Duration: 1/2 hour Severity: mild Improving Factors: nothing Worsening Factors: nothing Associated Symptoms: chest pain, cough, malaise Allergies/Adverse Reactions: Allergies NO KNOWN ALLERGY Allergy (Verified 09/18/19 01:45) Home Medications: Ambulatory Orders Insulin Detemir [Levemir Pen] 30 units SUBCU PRN PRN 08/31/15 Lisinopril 10 mg PO BID 10/21/15 Nitroglycerin [Nitrostat] 0.4 mg SL Q5MIN PRN 10/21/15 Pantoprazole Sodium 40 mg PO DAILY 10/21/15 Allopurinol [Zyloprim] 100 mg PO DAILY 12/21/15 Atorvastatin Calcium [Lipitor] 40 mg PO DAILY 12/21/15 Budes/Formoterol INH 160/4.5 [Symbicort Inhaler 160/4.5] 1 puff INH DAILY 12/21/15 Calcitriol 0.25 mcg PO DAILY 01/14/16 Tramadol HCl 50 mg PO Q8HR PRN #20 tab 09/18/19 Review of Systems - Review of Systems Constitutional: States: malaise EENTM: States: nose congestion Respiratory: States: cough, short of breath - mild Cardiology: States: chest pain Gastrointestinal/Abdominal: States: no symptoms reported Genitourinary: States: no symptoms reported Musculoskeletal: States: see HPI Skin: States: no symptoms reported Neurological: States: no symptoms reported Endocrine: States: no symptoms reported Hematologic/Lymphatic: States: no symptoms reported All other Systems: No Change from Baseline Past Medical History (General) - Patient Medical History Hx Seizures: No Hx Stroke: No Hx Dementia: No Hx Asthma: Yes Hx of COPD: Yes Hx Cardiac Disorders: Yes - arrhythmia Hx Congestive Heart Failure: Yes Hx Pacemaker: No Hx Hypertension: Yes Hx Thyroid Disease: No Hx Diabetes: Yes Hx Gastroesophageal Reflux: No Hx Renal Disease: No Hx Cancer: No Hx of HIV: No Hx Hepatitis C: No Hx MRSA: No Surgical History: coronary bypass surgery - Vaccination History Hx Tetanus, Diphtheria Vaccination: No Hx Influenza Vaccination: No Hx Pneumococcal Vaccination: No - Social History Hx Tobacco Use: Yes Hx Alcohol Use: No Hx Substance Use: No Hx Substance Use Treatment: No Hx Depression: No Hx Physical Abuse: No Hx Emotional Abuse: No - Female History Patient : No Family Medical History - Family History Father Family History: Unknown Name: Robert Mercado Age (years): 69 Living Status: Age at (years of age): 69 Cause of : Natural causes. Hx Family Asthma: - Pt Hx Family Congestive Heart Failure: Yes - Pt Hx Family Hypertension: Yes - Father, siblings Hx Family Stroke: Yes - Mother Hx Cardiac Disease: Yes - Father and siblings Hx Family Diabetes: Yes - Father and sister Hx Family Cancer: No Physical Exam - Physical Exam General Appearance: Alert, Anxious, Comfortable, No apparent distress Eye Exam: bilateral normal Ears, Nose, Throat: hearing grossly normal, normal pharynx, nasal congestion Neck: full range of motion, supple Respiratory: no respiratory distress, no accessory muscle use, wheezing, other - he does have anterior chest wall tenderness to palpation which is not new. 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, alert, normal mood/affect, oriented x 3 Skin Exam: normal color Comments: Vital Signs - 24 hr 01/01/20 01/01/20 01/01/20 20:35 20:49 21:36 Temperature 96.7 F L Pulse Rate 86 Pulse Rate [ 96 H 96 H 85 left] Respiratory 18 18 Rate Blood Pressure 152/105 156/93 [Left Arm] O2 Sat by Pulse 96 98 Oximetry 10/11/19 10/11/19 10/11/19 21:41 22:00 23:00 Temperature Pulse Rate 84 Pulse Rate [ 87 83 left] Respiratory 16 16 16 Rate Blood Pressure 134/87 132/84 [Left Arm] O2 Sat by Pulse 98 96 93 L Oximetry 10/12/19 00:00 Temperature Pulse Rate Pulse Rate [ 82 left] Respiratory 14 Rate Blood Pressure 125/92 [Left Arm] O2 Sat by Pulse 94 L Oximetry Progress - Progress Progress: 10/12/19 00:29 the patient's 64-year-old male presenting to the emergency room with chest pain of about a half hours duration. Chest pain resolved within a half hour of being here. He does have a significant coronary history. The initial and repeat set of cardiac enzymes at 3 hours are negative. The patient does have some significant hyperglycemia and is being dosed with some extra insulin currently. This will need to be followed. He did also receive a liter of IV fluids for mild dehydration likely related to that. Additionally the patient is having a mild COPD exacerbation and did receive a DuoNeb treatment. Steroids are being avoided at this time secondary to hyperglycemia. He is not oxygen dependent. No respiratory distress. Admit overnight for longer cardiac rule out. He does need to be on telemetry monitoring. He took an aspirin at home and is given a dose of Lovenox here. - Results/Orders Results/Orders: EKG shows occasional PVCs. Normal sinus rhythm at 79 beats a minute. Normal axis. Mild chronically widened QRS complex. Mild T-wave inversion in aVL and V1. No evidence of any ST segment elevation. LVH criteria is present. Borderline prolonged QT interval. Laboratory Results - last 24 hr 10/11/19 10/11/19 10/11/19 20:42 20:42 20:43 WBC 7.7 RBC 4.24 L Hgb 13.8 L Hct 38.8 L MCV 91.6 MCH 32.5 H MCHC 35.5 RDW 13.5 Plt Count 145 MPV 9.7 Absolute Neuts (auto) 5.50 Absolute Lymphs (auto) 1.40 Absolute Monos (auto) 0.60 Absolute Eos (auto) 0.10 Absolute Basos (auto) 0.10 Neutrophils % 71.5 Lymphocytes % 18.4 L Monocytes % 7.6 Eosinophils % 1.2 Basophils % 1.3 PT 12.8 H INR 1.29 H PTT (SP) 27.3 Sodium 132 L Potassium 4.3 Chloride 96 L Carbon Dioxide 26 Anion Gap 14.3 BUN 32 H Creatinine 1.76 H BUN/Creatinine Ratio 18.2 Random Glucose 395 H Serum Osmolality 287.9 Calcium 8.9 Magnesium 2.0 Total Bilirubin 1.0 AST 24 ALT 20 Alkaline Phosphatase 97 Creatine Kinase 101 CK-MB (CK-2) 3.2 CK-MB (CK-2) % Not Reportable Troponin I 0.05 B-Natriuretic Peptide 106.0 H Serum Total Protein 7.6 Albumin 4.0 Globulin 3.6 H Albumin/Globulin Ratio 1.1 10/11/19 23:30 WBC RBC Hgb Hct MCV MCH MCHC RDW Plt Count MPV Absolute Neuts (auto) Absolute Lymphs (auto) Absolute Monos (auto) Absolute Eos (auto) Absolute Basos (auto) Neutrophils % Lymphocytes % Monocytes % Eosinophils % Basophils % PT INR PTT (SP) Sodium Potassium Chloride Carbon Dioxide Anion Gap BUN Creatinine BUN/Creatinine Ratio Random Glucose Serum Osmolality Calcium Magnesium Total Bilirubin AST ALT Alkaline Phosphatase Creatine Kinase 86 CK-MB (CK-2) 3.0 CK-MB (CK-2) % Not Reportable Troponin I 0.04 B-Natriuretic Peptide Serum Total Protein Albumin Globulin Albumin/Globulin Ratio Departure - Departure Clinical Impression: COPD with exacerbation Chest pain Qualifiers: Chest pain type: unspecified Qualified Code(s): R07.9 - Chest pain, unspecified Uncontrolled diabetes mellitus Qualifiers: Diabetes mellitus type: type 1 Glycemic state: with hyperglycemia Qualified Code(s): E10.65 - Type 1 diabetes mellitus with hyperglycemia Disposition: Admit Patient Condition: Fair Departure Forms: ED Discharge - Pt. Copy, Patient Portal Self Enrollment Referrals: VIOLETTA CHÁVEZ [Primary Care Provider] - 1-2 Weeks Home Medications: Ambulatory Orders Insulin Detemir [Levemir Pen] 30 units SUBCU PRN PRN 08/31/15 Lisinopril 10 mg PO BID 10/21/15 Nitroglycerin [Nitrostat] 0.4 mg SL Q5MIN PRN 10/21/15 Pantoprazole Sodium 40 mg PO DAILY 10/21/15 Allopurinol [Zyloprim] 100 mg PO DAILY 12/21/15 Atorvastatin Calcium [Lipitor] 40 mg PO DAILY 12/21/15 Budes/Formoterol INH 160/4.5 [Symbicort Inhaler 160/4.5] 1 puff INH DAILY 12/21/15 Calcitriol 0.25 mcg PO DAILY 01/14/16 Tramadol HCl 50 mg PO Q8HR PRN #20 tab 09/18/19 Decision To Admit - Decistion To Admit Decision to Admit Reason: Medical Nature Decision to Admit Date: 10/12/19 Decision to Admit Time: 00:32
[2019-10-12] MEDS ORDERED: SODIUM CHLORIDE 0.9% (FLUSH) 10 ML SYG IV PRN (00:55)
[2019-10-12] MEDS ORDERED: NITROGLYCERIN 0.4 MG 25 EA TAB SL PRN (00:55)
[2019-10-12] MEDS ORDERED: MORPHINE SULFATE INJ 10 MG/ML VIAL IV PRN (00:55)
[2019-10-12] MEDS ORDERED: ACETAMINOPHEN 325 MG TAB PO PRN (00:55)
[2019-10-12] MEDS ORDERED: IV SET AND CAP CHANGE INJ INJ SCH (01:00)
[2019-10-12] MEDS ORDERED: traMADol HCL 50 MG TAB PO PRN (01:00)
[2019-10-12] MEDS ORDERED: ALBUTEROL SULFATE 2.5 MG/3 ML VIAL NEB PRN (01:03)
[2019-10-12] MEDS ORDERED: PANTOPRAZOLE SODIUM IV 40 MG VIAL IV SCH (06:30)
[2019-10-12] MEDS: ALBUTEROL SULFATE 2.5 MG/3 ML VIAL NEB SCH ×2 (08:00→13:15)
[2019-10-12] MEDS ORDERED: DEXTROSE 10% 500ML IVPB PRN (08:16)
[2019-10-12] MEDS ORDERED: GLUCAGON INJ 1 MG VIAL SUBCU PRN (08:16)
[2019-10-12] MEDS ORDERED: CALCITRIOL 0.25 MCG CAP PO SCH (09:00)
[2019-10-12] MEDS ORDERED: BUDESONIDE/FORMOTEROL 160/4.5 60 PUFF/6 GM INH INH SCH (09:00)
[2019-10-12] MEDS ORDERED: ALLOPURINOL 100 MG TAB PO SCH (09:00)
[2019-10-12] MEDS ORDERED: SODIUM CHLORIDE 0.9% (FLUSH) 10 ML SYG IV SCH (09:00)
[2019-10-12] MEDS ORDERED: LISINOPRIL 10 MG TAB PO SCH (09:00)
[2019-10-12] MEDS: INSULIN LISPRO 100 UNITS/ML PEN SUBCU SCH ×2 (09:05→11:28)
[2019-10-12 13:02] VITALS: BP 173/95; TEMP 98; O2SAT 95
[2019-10-12] MEDS ORDERED: ATORVASTATIN 20 MG TAB PO SCH (21:00)
--- NOTE | 2019-10-13 08:02 | SSS ---
SUPERVISING PHYSICIAN: Pacheco Dinh MD DATE OF ADMISSION: 10/12/19 DATE OF DISCHARGE: 10/12/19 DISCHARGE DIAGNOSIS: 1. Chest pain, acute coronary syndrome has been ruled out. He has had negative serial cardiac enzymes and no changes on his EKG. There has been no chest pain since admission to the Floor. 2. Chronic obstructive pulmonary disease without exacerbation. 3. Diabetes mellitus, type 2. 4. Obesity. 5. Hypertension. 6. History of pulmonary embolism on Coumadin although he has not taken his Coumadin for approximately one week. 7. Poor medical compliance. It is very difficult to ascertain if the patient has been taking his medications as directed. 8. Chronic renal insufficiency. HISTORY OF PRESENT ILLNESS: This is a 64-year-old male patient that presented to the Emergency Room on the evening prior to his admission with chest pain. The pain was substernal and started when he was sitting on the couch that evening. It was somewhat dull in nature. He does have a history of gastroesophageal reflux disease as well as a history of chest pain. At some point in the past, he has had an upper respiratory infection and he has chronic obstructive pulmonary disease. He did take an aspirin prior to his arrival in the Emergency Room. He also has a history of pulmonary embolism in the past that he is on Coumadin for although he has not had his prescription filled in over a week and he has not taken Coumadin for a while. He is also a very poor historian and it was unclear as to whether he has been taking his medications as ordered. His primary care physician is Dr. Vasquez from [place]. He was given some nitroglycerin as well as pantoprazole and a liter of fluids. His initial troponin was 0.05 and his 2 hour troponin was 0.04. Initial vital signs showed temperature 96.7 with heart rate 86, blood pressure 152/105, respiratory rate 18, O2 saturation 96%. His lab showed sodium 135, potassium 4.3, chloride 96, carbon dioxide 26, BUN 32, creatinine 1.76. Baseline creatinine is about 1.8. His INR was 1.29. WBC 7.7, hemoglobin 13.8, hematocrit 38.8. His chest x-ray showed no acute abnormality identified. I was called for hospital admission. PAST MEDICAL HISTORY: 1. Hypertension. 2. Diabetes mellitus. 3. Pulmonary embolism. 4. Cerebrovascular disease. 5. Gastroesophageal reflux disease. 6. Asthma. 7. Chronic obstructive pulmonary disease. PAST SURGICAL HISTORY: 1. Coronary artery bypass graft. CURRENT MEDICATIONS: 1. Gabapentin. 2. Warfarin. 3. Levemir insulin. 4. Nitroglycerin. 5. Pantoprazole. 6. Allopurinol. 7. Atorvastatin. 8. Symbicort. 9. Tramadol. FAMILY HISTORY: Positive for CVA and COPD. SOCIAL HISTORY: He is disabled. He is . He quit smoking about 15 or 16 years ago, but he has a past history of smoking for approximately 30 plus years. REVIEW OF SYSTEMS: GENERAL: Negative for fever, fatigue, chills or weight changes. HEENT: Positive for sinus somewhat. Negative for ear pain, vision changes or sore throat. RESPIRATORY: Positive for coughing. Negative for wheezing or shortness of breath. CARDIAC: As per history of present illness. GASTROINTESTINAL: Negative for nausea, vomiting, diarrhea, constipation. GENITOURINARY: Negative for hematuria, dysuria or polyuria. SKIN: Negative for lesions or rashes. NEUROLOGIC: Negative for headache, weakness or seizures. PHYSICAL EXAMINATION: VITAL SIGNS: Temperature 97.7. Heart rate 92. Blood pressure 131/88. Respiratory rate 18. O2 saturation 93% on room air. GENERAL: This is a 64-year-old male patient lying in his hospital bed. He is in no acute distress. He is a very poor historian. HEENT: Normocephalic, atraumatic. Pupils are equal and reactive. Oropharynx is clear. NECK: Supple without mass. RESPIRATORY: Essentially clear to auscultation bilaterally, but he does have some diminished breath sounds at the bases. CHEST: There is equal rise and fall of the chest with inspiration and expiration. CARDIOVASCULAR: There is a notable systolic murmur with a regular rate and rhythm. GASTROINTESTINAL: Abdomen is soft, nondistended, nontender. Bowel sounds are positive. EXTREMITIES: No cyanosis, clubbing or edema. NEUROLOGIC: Awake, alert and oriented times three. Cranial nerves II-XII are grossly intact as tested. Again, he is a very poor historian. LABORATORY: His followup CBC is unremarkable. His followup chemistries are unremarkable. His creatinine did improve slightly to 1.5. His followup cardiac enzymes are all negative. Echocardiogram showed an ejection fraction of about 40% with diastolic and systolic dysfunction. All other labs and films are as per history of present illness. HOSPITAL COURSE: The patient was placed in observation. He had no further complaints of chest pain. It was unclear if he was taking his medications as ordered. He did say he had not taken his Coumadin in a week or so as he had not gotten it refilled. He was unclear as to what he was taking or was not taking. He was given some Lovenox 1 mg/kg in the Emergency Room. I discussed at length the need for him to take his Coumadin based on his history of pulmonary embolism. He does have an appointment with Dr. Vasquez on 10/29/19 and I have given him 8 additional days of his routine Coumadin with instructions to followup at the Emergency Room or with Dr. Vasquez for any shortness of breath or chest pain. He is to increase his activity as tolerated. He is to continue on a diabetic diet. He was given a copy of his echocardiogram to give to Dr. Vasquez when he sees him next week. He is also to resume his previous medications and call Dr. Vasquez' office for any questions regarding his medications. DISCHARGE MEDICATIONS: 1. Levemir. 2. Pantoprazole. 3. Nitroglycerin. 4. Symbicort. 5. Atorvastatin. 6. Allopurinol. 7. Tramadol. 8. Warfarin. 9. Gabapentin. #[id number] [facility]
== END 2019-10-12 13:36 | disposition home or self-care (01) ==
LOC: ER 20:31 → MS 10-12 00:44
PROVIDERS: ADMIT Nurse Practitioner Acute Care; ATTEND Nurse Practitioner Acute Care
DX: R07.2 Precordial pain (principal); E11.65 Type 2 diabetes mellitus with hyperglycemia; E86.0 Dehydration; J44.1 Chronic obstructive pulmonary disease with (acute) exacerbation; E66.9 Obesity, unspecified; I12.9 Hypertensive chronic kidney disease with stage 1 through stage 4 chronic kidney disease, or unspecified chronic kidney disease; N18.9 Chronic kidney disease, unspecified; K21.9 Gastro-esophageal reflux disease without esophagitis; I49.3 Ventricular premature depolarization; I34.0 Nonrheumatic mitral (valve) insufficiency; I35.1 Nonrheumatic aortic (valve) insufficiency; Z86.711 Personal history of pulmonary embolism; Z79.01 Long term (current) use of anticoagulants; Z91.14 Patient's other noncompliance with medication regimen; Z79.4 Long term (current) use of insulin; Z79.51 Long term (current) use of inhaled steroids; Z79.899 Other long term (current) drug therapy; Z95.1 Presence of aortocoronary bypass graft; Z87.891 Personal history of nicotine dependence; Z82.3 Family history of stroke; Z82.5 Family history of asthma and other chronic lower respiratory diseases
CPT/HCPCS: 96374; 96372 ×2; J7611; J7030; J7620; J1650; J1815 ×2; 82553 ×4; 80053 ×2; 82948 ×3; 36415 ×2; 85025 ×2; 82550 ×4; 83735; 85730; 85610; 84484 ×4; 83880; 36416 ×2; 71046; 94640 ×2; 94760; 94664; 99406; 99285; 93306; 93005 ×4; G0378

== ENCOUNTER 2019-11-24 15:14 | Emergency (ER) | payer OTHER ==
--- NOTE | 2019-11-24 15:39 | ED.PDOC ---
History of Present Illness - General Chief Complaint: Lower Extremity Injury Stated Complaint: right foot injury Time Seen by Provider: 11/24/19 15:33 Source: patient Exam Limitations: no limitations - History of Present Illness Initial Comments: Patient is a 64-year-old male presents emergency room secondary to right lateral foot pain for the last 3 days after he dropped a can of corn on it. There is no laceration. There is mild erythema to the dorsal mid lateral right foot. Passive and active range of motion are preserved. No crepitus. No laceration. He does have chronic peripheral neuropathy. He does have pain with palpation and walking. Timing/Duration: other - 3 days Severity: moderate Improving Factors: immobilization Worsening Factors: movement Associated Symptoms: denies symptoms Allergies/Adverse Reactions: Allergies NO KNOWN ALLERGY Allergy (Verified 11/24/19 15:22) Home Medications: Ambulatory Orders Insulin Detemir [Levemir Pen] 20 units SUBCU BID PRN 08/31/15 Nitroglycerin [Nitrostat] 0.4 mg SL Q5MIN PRN 10/21/15 Pantoprazole Sodium 40 mg PO DAILY 10/21/15 Allopurinol [Zyloprim] 100 mg PO DAILY 12/21/15 Atorvastatin Calcium [Lipitor] 40 mg PO DAILY 12/21/15 Budes/Formoterol INH 160/4.5 [Symbicort Inhaler 160/4.5] 1 puff INH DAILY 12/21/15 Tramadol HCl 50 mg PO Q8HR PRN #20 tab 09/18/19 Gabapentin 600 mg PO BID 10/12/19 Warfarin Sodium 3 mg PO DAILY 10/12/19 Warfarin Sodium [Coumadin] 3 mg PO DAILY #8 tab 10/12/19 Review of Systems - Review of Systems Constitutional: States: no symptoms reported EENTM: States: no symptoms reported Respiratory: States: no symptoms reported Cardiology: States: no symptoms reported Gastrointestinal/Abdominal: States: no symptoms reported Genitourinary: States: no symptoms reported Musculoskeletal: States: see HPI Skin: States: see HPI Neurological: States: see HPI Endocrine: States: no symptoms reported Hematologic/Lymphatic: States: no symptoms reported All other Systems: No Change from Baseline Past Medical History (General) - Patient Medical History Hx Seizures: No Hx Stroke: No Hx Dementia: No Hx Asthma: Yes Hx of COPD: Yes Hx Cardiac Disorders: Yes - arrhythmia Hx Congestive Heart Failure: Yes Hx Pacemaker: No Hx Hypertension: Yes Hx Thyroid Disease: No Hx Diabetes: Yes Hx Gastroesophageal Reflux: No Hx Renal Disease: No Hx Cancer: No Hx of HIV: No Hx Hepatitis C: No Hx MRSA: No - Vaccination History Hx Tetanus, Diphtheria Vaccination: No Hx Influenza Vaccination: No Hx Pneumococcal Vaccination: No - Social History Hx Tobacco Use: Yes Hx Alcohol Use: No Hx Substance Use: No Hx Substance Use Treatment: No Hx Depression: No Hx Physical Abuse: No Hx Emotional Abuse: No - Female History Patient : No Family Medical History - Family History Father Family History: Unknown Name: Robert Mercado Age (years): 69 Living Status: Age at (years of age): 69 Cause of : Natural causes. Hx Family Asthma: - Pt Hx Family Congestive Heart Failure: Yes - Pt Hx Family Hypertension: Yes - Father, siblings Hx Family Stroke: Yes - Mother Hx Cardiac Disease: Yes - Father and siblings Hx Family Diabetes: Yes - Father and sister Hx Family Cancer: No Physical Exam - Physical Exam General Appearance: Alert, No apparent distress Eye Exam: bilateral normal Ears, Nose, Throat: hearing grossly normal, normal pharynx Respiratory: no respiratory distress, no accessory muscle use Cardiovascular/Chest: normal peripheral pulses, no edema Peripheral Pulses: dorsalis pedis,right: 2+, dorsalis pedis,left: 2+ Rectal Exam: deferred Extremity: normal range of motion, no pedal edema, normal capillary refill, other - See history of present illness. Neurologic: clutch rebuilder II-XII nml as tested, alert, normal mood/affect, oriented x 3 Skin Exam: other - See history of present illness. Comments: Vital Signs - 8 hr 11/24/19 15:31 Temperature 97.1 F L Pulse Rate [ 77 left 97.1] Respiratory 20 Rate Blood Pressure 142/93 [left brachial] O2 Sat by Pulse 93 L Oximetry Progress - Progress Progress: 11/24/19 15:37 The patient is a 64-year-old male presented emergency room secondary to what appears to be soft tissue injury, most likely mild tendinitis after blunt trauma from dropping a can of corn on his right foot 3 days ago. X-ray does not show any dislocation or fracture. No evidence of any significant infectious cellulitis and no laceration. He will likely have soreness for the next week or 2. He does need to use the foot. Motrin can be used for discomfort. ER warnings were given. Keep routine follow-up with primary care doctor. elian calvin 210 Departure - Departure Clinical Impression: Tendonitis of foot Disposition: Discharge to Home or Self Care Condition: Fair Departure Forms: ED Discharge - Pt. Copy, Patient Portal Self Enrollment Instructions: Tendinopathy Diet: diabetic diet Activity: increase activity as tolerated Referrals: VIOLETTA CHÁVEZ [Primary Care Provider] - 1-2 Weeks Home Medications: Ambulatory Orders Insulin Detemir [Levemir Pen] 20 units SUBCU BID PRN 08/31/15 Nitroglycerin [Nitrostat] 0.4 mg SL Q5MIN PRN 10/21/15 Pantoprazole Sodium 40 mg PO DAILY 10/21/15 Allopurinol [Zyloprim] 100 mg PO DAILY 12/21/15 Atorvastatin Calcium [Lipitor] 40 mg PO DAILY 12/21/15 Budes/Formoterol INH 160/4.5 [Symbicort Inhaler 160/4.5] 1 puff INH DAILY 12/21/15 Tramadol HCl 50 mg PO Q8HR PRN #20 tab 09/18/19 Gabapentin 600 mg PO BID 10/12/19 Warfarin Sodium 3 mg PO DAILY 10/12/19 Warfarin Sodium [Coumadin] 3 mg PO DAILY #8 tab 10/12/19 Additional Instructions: The patient is a 64-year-old male presented emergency room secondary to what appears to be soft tissue injury, most likely mild tendinitis after blunt trauma from dropping a can of corn on his right foot 3 days ago. X-ray does not show any dislocation or fracture. No evidence of any significant infectious cellulitis and no laceration. He will likely have soreness for the next week or 2. He does need to use the foot. Motrin can be used for discomfort. ER warnings were given. Keep routine follow-up with primary care doctor.
--- NOTE | 2019-11-24 15:41 | RAD ---
EXAM DESCRIPTION: Foot,Right 2 Views CLINICAL HISTORY: 64 years Male, Possible fracture COMPARISON: None. FINDINGS: 2 views of the right foot show no acute fracture or malalignment. Slight cortical irregularity involving the medial aspect of the navicular, questionable acuity. No radiopaque foreign body or soft tissue gas. Small plantar calcaneal enthesophyte. IMPRESSION: Slight cortical irregularity involving the far medial aspect of the navicular, probably not acute. If the patient has pain at this location, the possibility of a small nondisplaced fracture should also be considered. No additional acute right foot abnormality. Calcaneal spurring. Electronically signed by: Nick Aponte MD 11/24/2019 3:40 PM [facility]
[2019-11-24 15:43] VITALS: BP 142/93; TEMP 97.1; O2SAT 93
== END 2019-11-24 15:51 | disposition home or self-care (01) ==
LOC: ER 15:14
DX: M77.9 Enthesopathy, unspecified (principal); E11.42 Type 2 diabetes mellitus with diabetic polyneuropathy; J44.9 Chronic obstructive pulmonary disease, unspecified; I50.9 Heart failure, unspecified; I11.0 Hypertensive heart disease with heart failure; Z79.01 Long term (current) use of anticoagulants; Z79.4 Long term (current) use of insulin; Z79.899 Other long term (current) drug therapy

== ENCOUNTER 2020-03-16 04:39 | Emergency (ER) | payer OTHER ==
[2020-03-16] MEDS ORDERED: HYDROcodone 10MG/APAP 325MG 1 EA TAB PO ONE (04:58)
[2020-03-16 05:05] VITALS: TEMP 96.7; O2SAT 94
--- NOTE | 2020-03-16 05:23 | ED.PDOC ---
History of Present Illness - General Chief Complaint: General Stated Complaint: right shoulder pain Time Seen by Provider: 03/16/20 04:43 Source: patient, RN notes reviewed, Vital Signs reviewed Exam Limitations: no limitations - History of Present Illness Initial Comments: This is a 64-year-old male with longstanding history of chronic right shoulder pain. Patient states he felt a pop several months ago and has had ongoing pain, but pain became markedly worse tonight. He denies any new injury/trauma/strain. Pain worsens with any movement of the shoulder. He is taken aspirin without relief. Denies any fever/numbness/tingling. Allergies/Adverse Reactions: Allergies NO KNOWN ALLERGY Allergy (Verified 11/24/19 15:22) Home Medications: Ambulatory Orders Insulin Detemir [Levemir Pen] 20 units SUBCU BID PRN 08/31/15 Nitroglycerin [Nitrostat] 0.4 mg SL Q5MIN PRN 10/21/15 Pantoprazole Sodium 40 mg PO DAILY 10/21/15 Allopurinol [Zyloprim] 100 mg PO DAILY 12/21/15 Atorvastatin Calcium [Lipitor] 40 mg PO DAILY 12/21/15 Budes/Formoterol INH 160/4.5 [Symbicort Inhaler 160/4.5] 1 puff INH DAILY 12/21/15 Tramadol HCl 50 mg PO Q8HR PRN #20 tab 09/18/19 Gabapentin 600 mg PO BID 10/12/19 Warfarin Sodium 3 mg PO DAILY 10/12/19 Warfarin Sodium [Coumadin] 3 mg PO DAILY #8 tab 10/12/19 Acetamin W/Cod #3 Tab [Tylenol w/CODEINE #3] 1 - 2 tablet PO Q6H PRN #20 tab 03/16/20 Review of Systems - Review of Systems Constitutional: Denies: chills, fever Respiratory: Denies: cough, orthopnea, short of breath Cardiology: Denies: chest pain, edema, syncope Gastrointestinal/Abdominal: Denies: nausea, vomiting Musculoskeletal: States: joint pain. Denies: back pain, joint swelling, muscle stiffness, neck pain Neurological: Denies: paresthesia, tingling, tremors, weakness Past Medical History (General) - Patient Medical History Hx Seizures: No Hx Stroke: No Hx Dementia: No Hx Asthma: Yes Hx of COPD: Yes Hx Cardiac Disorders: Yes - arrhythmia Hx Congestive Heart Failure: Yes Hx Pacemaker: No Hx Hypertension: Yes Hx Thyroid Disease: No Hx Diabetes: Yes Hx Gastroesophageal Reflux: No Hx Renal Disease: No Hx Cancer: No Hx of HIV: No Hx Hepatitis C: No Hx MRSA: No - Vaccination History Hx Tetanus, Diphtheria Vaccination: No Hx Influenza Vaccination: No Hx Pneumococcal Vaccination: Yes Immunizations Up to Date: No - Social History Hx Tobacco Use: Yes Hx Chewing Tobacco Use: No Hx Alcohol Use: No Hx Substance Use: No Hx Substance Use Treatment: No Hx Depression: No Feels Threatened In Home Enviroment: No Feels Threatened In a Relationship: No Hx Physical Abuse: No Hx Emotional Abuse: No Hx Suspected Abuse: No - Activities of Daily Living Hospice Agency (if applicable):: None - Female History Patient is a Female of Child Bearing Age (10 -59 yrs old): No Patient : No Family Medical History - Family History Father Family History: Unknown Name: Robert Mercado Age (years): 69 Living Status: Age at (years of age): 69 Cause of : Natural causes. Hx Family Asthma: - Pt Hx Family Congestive Heart Failure: Yes - Pt Hx Family Hypertension: Yes - Father, siblings Hx Family Stroke: Yes - Mother Hx Cardiac Disease: Yes - Father and siblings Hx Family Diabetes: Yes - Father and sister Hx Family Cancer: No Physical Exam - Physical Exam General Appearance: Alert, Unkempt, Other - Appears uncomfortable Ears, Nose, Throat: normal ENT inspection, normal pharynx Neck: non-tender, full range of motion Respiratory: chest non-tender, lungs clear, normal breath sounds, no respiratory distress, no accessory muscle use Cardiovascular/Chest: normal peripheral pulses, regular rate, rhythm, no edema, no gallop Peripheral Pulses: radial,right: 2+, radial,left: 2+ Gastrointestinal/Abdominal: non tender, soft Extremity: normal capillary refill, other - Limited internal and external rotation as well as abduction of the right shoulder due to pain. He is diffusely tender to the anterior and posterior aspects of the shoulder. There is no deep sulcus sign, no swelling, no deformity Neurologic: no motor/sensory deficits, alert, normal mood/affect Skin Exam: normal color, warm/dry Progress - Progress Progress: 03/16/20 05:25 Rechecked. Discussed plan for sling, pain control, as well as need for follow- up with orthopedics in 3 to 5 days for recheck. Sling warnings given. DDX: Fracture, dislocation, DJD/rotator cuff injury MDM: Acute on chronic shoulder pain, x-ray consistent with calcific tendinopathy fracture dislocation. Will treat symptomatically and refer to Ortho for outpatient follow-up. NVID distally. [id number] - Results/Orders Results/Orders: EKG reviewed personally by me at 5:07 AM. Sinus rhythm, 88, left axis, prolonged QTC at 493, nonspecific ST and T wave change Right shoulder x-ray reviewed personally by me. There is a calcific deposit between the glenoid and the acromion, consistent with calcific tendinopathy, no fracture, no dislocation Departure - Departure Clinical Impression: Calcific bursitis of shoulder Right shoulder pain Qualifiers: Chronicity: acute Qualified Code(s): M25.511 - Pain in right shoulder Time of Disposition: 05:31 Disposition: Discharge to Home or Self Care Departure Forms: ED Discharge - Pt. Copy, Patient Portal Self Enrollment Diet: resume usual diet Activity: increase activity as tolerated Referrals: VIOLETTA CHÁVEZ [Primary Care Provider] - 1-5 Days Dayron Alas MD [Active Staff] - 1-2 Weeks Prescriptions: Acetamin W/Cod #3 Tab [Tylenol w/CODEINE #3] 1 - 2 tablet PO Q6H PRN #20 tab PRN Reason: Moderate To Severe Pain Home Medications: Ambulatory Orders Insulin Detemir [Levemir Pen] 20 units SUBCU BID PRN 08/31/15 Nitroglycerin [Nitrostat] 0.4 mg SL Q5MIN PRN 10/21/15 Pantoprazole Sodium 40 mg PO DAILY 10/21/15 Allopurinol [Zyloprim] 100 mg PO DAILY 12/21/15 Atorvastatin Calcium [Lipitor] 40 mg PO DAILY 12/21/15 Budes/Formoterol INH 160/4.5 [Symbicort Inhaler 160/4.5] 1 puff INH DAILY 12/21/15 Tramadol HCl 50 mg PO Q8HR PRN #20 tab 09/18/19 Gabapentin 600 mg PO BID 10/12/19 Warfarin Sodium 3 mg PO DAILY 10/12/19 Warfarin Sodium [Coumadin] 3 mg PO DAILY #8 tab 10/12/19 Acetamin W/Cod #3 Tab [Tylenol w/CODEINE #3] 1 - 2 tablet PO Q6H PRN #20 tab 03/16/20
--- NOTE | 2020-03-16 05:33 | RAD ---
Right shoulder two view on 03/16/2020 CLINICAL INDICATION: Right shoulder pain COMPARISON: 11/19/2016 FINDINGS: There is a high riding right humeral head again noted consistent with a chronic rotator cuff tear. There is a chronic calcification within the AC joint that could be degenerative or related to old trauma. There is no dislocation. No acute fracture is noted. IMPRESSION: Chronic findings in the right shoulder as above with no acute abnormality. Electronically signed by: Sherman Forde 03/16/2020 5:32 AM CDT
[2020-03-16 05:42] VITALS: BP 155/88
== END 2020-03-16 05:41 | disposition home or self-care (01) ==
LOC: ER 04:39
DX: M75.51 Bursitis of right shoulder (principal); M25.511 Pain in right shoulder; J44.9 Chronic obstructive pulmonary disease, unspecified; I11.0 Hypertensive heart disease with heart failure; I49.9 Cardiac arrhythmia, unspecified; I50.9 Heart failure, unspecified; E11.9 Type 2 diabetes mellitus without complications; Z87.891 Personal history of nicotine dependence; Z79.4 Long term (current) use of insulin; Z79.899 Other long term (current) drug therapy; Z79.01 Long term (current) use of anticoagulants

== ENCOUNTER 2020-05-25 12:21 | Emergency (ER) | payer OTHER ==
[2020-05-25] MEDS ORDERED: DEXAMETHASONE INJ 10 MG/ML VIAL IM ONE (12:56)
[2020-05-25] MEDS ORDERED: ONDANSETRON INJ 4 MG/2 ML VIAL IV ONE (13:18)
[2020-05-25] MEDS ORDERED: MORPHINE SULFATE INJ 10 MG/ML VIAL IV ONE (13:18)
--- NOTE | 2020-05-25 13:31 | ED.PDOC ---
History of Present Illness - General Chief Complaint: Upper Extremity Injury Stated Complaint: Chronic R shoulder pain Time Seen by Provider: 05/25/20 12:40 - History of Present Illness Initial Comments: 65 yo male with chronic right shoulder pain comes in for acute worsening of pain. Denies any new injuries. States he takes gabapentin, but only makes him tired. was suppose to have surgery, but then covid occur and it was postpone. Denies chest pain, shortness of breath. no other injuries. no numbness or tingling. no weakness. Allergies/Adverse Reactions: Allergies NO KNOWN ALLERGY Allergy (Verified 11/24/19 15:22) Home Medications: Ambulatory Orders Insulin Detemir [Levemir Pen] 20 units SUBCU BID PRN 08/31/15 Nitroglycerin [Nitrostat] 0.4 mg SL Q5MIN PRN 10/21/15 Pantoprazole Sodium 40 mg PO DAILY 10/21/15 Allopurinol [Zyloprim] 100 mg PO DAILY 12/21/15 Atorvastatin Calcium [Lipitor] 40 mg PO DAILY 12/21/15 Budes/Formoterol INH 160/4.5 [Symbicort Inhaler 160/4.5] 1 puff INH DAILY 12/21/15 Tramadol HCl 50 mg PO Q8HR PRN #20 tab 09/18/19 Gabapentin 600 mg PO BID 10/12/19 Warfarin Sodium 3 mg PO DAILY 10/12/19 Warfarin Sodium [Coumadin] 3 mg PO DAILY #8 tab 10/12/19 Acetamin W/Cod #3 Tab [Tylenol w/CODEINE #3] 1 - 2 tablet PO Q6H PRN #20 tab 03/16/20 Review of Systems - Review of Systems Constitutional: Denies: chills, diaphoresis, fever, malaise Respiratory: Denies: cough, orthopnea, short of breath, stridor Cardiology: Denies: chest pain, edema, palpitations, syncope Gastrointestinal/Abdominal: Denies: abdominal pain, constipation, diarrhea, nausea, vomiting Genitourinary: Denies: discharge, dysuria, frequency, hematuria Musculoskeletal: States: joint pain, muscle pain. Denies: back pain, joint swelling, muscle stiffness Skin: Denies: change in color, change in hair/nails, dryness, rash Neurological: Denies: anxiety, depressed, headache, numbness, paresthesia, pre- existing deficit, seizure, tingling, tremors Endocrine: Denies: intolerance to cold, intolerance to heat, increased hunger, increased thirst, increased urine, unexplained weight gain Hematologic/Lymphatic: Denies: anemia, blood clots, easy bleeding Past Medical History (General) - Patient Medical History Hx Seizures: No Hx Stroke: No Hx Dementia: No Hx Asthma: Yes Hx of COPD: Yes Hx Cardiac Disorders: Yes - arrhythmia Hx Congestive Heart Failure: Yes Hx Pacemaker: No Hx Hypertension: Yes Hx Thyroid Disease: No Hx Diabetes: Yes Hx Gastroesophageal Reflux: No Hx Renal Disease: No Hx Cancer: No Hx of HIV: No Hx Hepatitis C: No Hx MRSA: No - Vaccination History Hx Tetanus, Diphtheria Vaccination: No Hx Influenza Vaccination: No Hx Pneumococcal Vaccination: Yes - Social History Hx Tobacco Use: Yes Hx Chewing Tobacco Use: No Hx Alcohol Use: No Hx Substance Use: No Hx Substance Use Treatment: No Hx Depression: No Hx Physical Abuse: No Hx Emotional Abuse: No Hx Suspected Abuse: No - Female History Patient is a Female of Child Bearing Age (10 -59 yrs old): No Patient : No Family Medical History - Family History Father Family History: Unknown Name: Robert Mercado Age (years): 69 Living Status: Age at (years of age): 69 Cause of : Natural causes. Hx Family Asthma: - Pt Hx Family Congestive Heart Failure: Yes - Pt Hx Family Hypertension: Yes - Father, siblings Hx Family Stroke: Yes - Mother Hx Cardiac Disease: Yes - Father and siblings Hx Family Diabetes: Yes - Father and sister Hx Family Cancer: No Physical Exam - Physical Exam General Appearance: Alert, Comfortable, No apparent distress Eyes, Ears, Nose, Throat Exam: PERRL/EOMI, normal ENT inspection, TMs normal Neck: non-tender, full range of motion, supple Cardiovascular/Respiratory: regular rate, rhythm, no M/R/G, normal peripheral pulses, no JVD, normal breath sounds, no respiratory distress Abdominal Exam: non-tender, no organomegaly Back Exam: normal inspection, no CVA tenderness, no vertebral tenderness Shoulder Exam: no evidence of injury, normal ROM, pain Elbow/Forearm Exam: normal inspection, non-tender, no evidence of injury, normal ROM Wrist Exam: normal inspection, non-tender, no evidence of injury, normal ROM Hand Exam: normal inspection, non-tender, no evidence of injury, normal ROM Neuro/Tendon: normal sensation, normal motor functions, normal tendon functions, responds to pain, no evidence tendon injury Mental 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, oriented x 3 Skin Exam: normal color, warm/dry Progress - Progress Progress: 05/25/20 13:30 due to history of heart disease will get ekg, cxr, troponin in addition to his shoulder xray. I have reviewed medication, benefits, alternative and side effects to steroids, patient decided to proceed with steroids. EKG shows Sinus tachycardia 103. with T wave inversion in I and V2, no significant change when compared to ekg on 03/16/20. 05/25/20 14:04 Patient mention CAD, but did not mention he was a diabetic. States he is complaint with his medications. he understands that steroids will increase his glucose. He is on a sliding scale insulin so will adjust his insulin for the increase glucose. CXR shows cardiomeagly, without acute pathology. Shoulder xray shows no acute pathology. patient understands we are not able to give him pain meds due to the fact he has to drive himself home. 05/25/20 15:25 shoulder pain resolved currently. No evidence of DKA. Plan to discharge. Strict return precautions given. Patient acknowledge understanding. I suspect in addition to arthritis patient has rotator cuff injury. 05/25/20 15:57 The data reviewed when caring for this patient included: nurse notes etc. The history and assessments from nurses notes were reviewed and considered. My assessment and the results of testing completed here in the ED were discussed with the patient. All questions were answered, and they express understanding of my assessment and the plan. They have been instructed to return if their symptoms worsen, and have been asked to follow up with their primary care physician to recheck today's presenting complaint. - Results/Orders Results/Orders: 05/25/20 14:02 Sodium Chloride 0.9% 1000ML [Ns 1000 ml] 1,000 ml IVS STAT Laboratory Results WBC 8.9 K/mm3 (4.8-10.8) 05/25/20 13:23 RBC 4.25 M/mm3 (4.70-6.10) L 05/25/20 13:23 Hgb 13.9 gm/dL (14.0-18.0) L 05/25/20 13:23 Hct 39.3 % (42.0-52.0) L 05/25/20 13:23 MCV 92.6 fl (80.0-94.0) 05/25/20 13:23 MCH 32.6 pg (27.0-31.0) H 05/25/20 13:23 MCHC 35.3 g/dL (33.0-37.0) 05/25/20 13:23 RDW 13.3 % (11.5-14.5) 05/25/20 13:23 Plt Count 145 K/mm3 (130-400) 05/25/20 13:23 MPV 9.1 fl (7.40-10.4) 05/25/20 13:23 Absolute Neuts (auto) 7.00 K/uL (1.8-6.8) H 05/25/20 13:23 Absolute Lymphs (auto) 1.10 K/uL (1.0-3.4) 05/25/20 13:23 Absolute Monos (auto) 0.60 K/uL (0.2-0.8) 05/25/20 13:23 Absolute Eos (auto) 0.10 K/uL (0.0-0.4) 05/25/20 13:23 Absolute Basos (auto) 0.10 K/uL (0.0-0.1) 05/25/20 13:23 Neutrophils % 78.3 % (42.0-78.0) H 05/25/20 13:23 Lymphocytes % 12.8 % (20.0-50.0) L 05/25/20 13:23 Monocytes % 6.5 % (2.0-9.0) 05/25/20 13:23 Eosinophils % 1.0 % (1.0-5.0) 05/25/20 13:23 Basophils % 1.4 % (0.0-2.0) 05/25/20 13:23 Sodium 129 mmol/L (135-145) L 05/25/20 13:23 Potassium 4.4 mmol/L (3.6-5.0) 05/25/20 13:23 Chloride 93 mmol/L (101-111) L 05/25/20 13:23 Carbon Dioxide 28 mmol/L (21-31) 05/25/20 13:23 Anion Gap 12.4 (12-18) 05/25/20 13:23 BUN 36 mg/dL (7-18) H 05/25/20 13:23 Creatinine 1.83 mg/dL (0.6-1.3) H 05/25/20 13:23 BUN/Creatinine Ratio 19.7 (10-20) 05/25/20 13:23 POC Glucose 347 mg/dL (70-105) H 05/25/20 16:12 Random Glucose 579 mg/dL (70-105) H* 05/25/20 13:23 Serum Osmolality 293.7 mOsm/L (275-295) 05/25/20 13:23 Calcium 9.0 mg/dL (8.4-10.2) 05/25/20 13:23 Total Bilirubin 0.9 mg/dL (0.2-1.0) 05/25/20 13:23 AST 17 IU/L (10-42) 05/25/20 13:23 ALT 16 IU/L (10-60) 05/25/20 13:23 Alkaline Phosphatase 85 IU/L (42-121) 05/25/20 13:23 Troponin I 0.04 ng/mL (0.01-0.05) 05/25/20 13:23 Serum Total Protein 7.9 gm/dL (6.4-8.2) 05/25/20 13:23 Albumin 3.8 g/dl (3.2-5.5) 05/25/20 13:23 Globulin 4.1 gm/dL (2.3-3.5) H 05/25/20 13:23 Albumin/Globulin Ratio 0.9 (1.1-1.9) L 05/25/20 13:23 Urine Color Yellow (Yellow) 05/25/20 Urine Appearance Clear (Clear) 05/25/20: Urine pH 6.5 (4.5-7.8) 05/25/20 Ur Specific [place] 1.015 (1.005-1.030) 05/25/20: Urine Protein 30 mg/dL 05/25/20 Urine Glucose (UA) 500 mg/dL (Negative) H 05/25/20: Urine Ketones Negative mg/dL (NEGATIVE) 05/25/20 Urine Blood Negative (Negative) 05/25/20 15:27 Urine Nitrite Negative 05/25/20 15:27 Urine Bilirubin Negative (NEGATIVE) 05/25/20 15:27 Urine Urobilinogen 0.2 mg/dL (0.2-1.0) 05/25/20 15:27 Ur Leukocyte Esterase Negative (Negative) 05/25/20 15:27 Urine RBC 0 /hpf 05/25/20 15:27 Urine WBC 0 /hpf 05/25/20 15:27 Ur Epithelial Cells 0 /hpf 05/25/20 15:27 Urine Bacteria 0 05/25/20 15:27 Patient given 1 L ns bolus, 10 units sub q insulin, repeat sugar 247 Departure - Departure Clinical Impression: Hyperglycemia due to diabetes mellitus Shoulder pain Qualifiers: Chronicity: acute Laterality: right Qualified Code(s): M25.511 - Pain in right shoulder Shoulder pain, right Qualifiers: Chronicity: acute Qualified Code(s): M25.511 - Pain in right shoulder Disposition: Discharge to Home or Self Care Condition: Good Departure Forms: ED Discharge - Pt. Copy, Patient Portal Self Enrollment Instructions: DI for Arm Pain, Shoulder Sprain, Rotator Cuff Injury, Hyperglycemia, Adult, Shoulder Impingement (DC), How to Prevent High Blood Sugar Emergencies in Diabetes Referrals: IVOLETTA CHÁVEZ [Primary Care Provider] - 1-2 Weeks Home Medications: Ambulatory Orders Insulin Detemir [Levemir Pen] 20 units SUBCU BID PRN 08/31/15 Nitroglycerin [Nitrostat] 0.4 mg SL Q5MIN PRN 10/21/15 Pantoprazole Sodium 40 mg PO DAILY 10/21/15 Allopurinol [Zyloprim] 100 mg PO DAILY 12/21/15 Atorvastatin Calcium [Lipitor] 40 mg PO DAILY 12/21/15 Budes/Formoterol INH 160/4.5 [Symbicort Inhaler 160/4.5] 1 puff INH DAILY 12/21/15 Tramadol HCl 50 mg PO Q8HR PRN #20 tab 09/18/19 Gabapentin 600 mg PO BID 10/12/19 Warfarin Sodium 3 mg PO DAILY 10/12/19 Warfarin Sodium [Coumadin] 3 mg PO DAILY #8 tab 10/12/19 Acetamin W/Cod #3 Tab [Tylenol w/CODEINE #3] 1 - 2 tablet PO Q6H PRN #20 tab 03/16/20
[2020-05-25] MEDS ORDERED: DEXAMETHASONE INJ 4 MG/ML VIAL IV ONE (13:34)
--- NOTE | 2020-05-25 13:37 | RAD ---
EXAMINATION: Chest x-ray one view. INDICATION: Chest pain. COMPARISON: 10/11/2019 TECHNIQUE: Frontal radiograph chest. FINDINGS: Sternotomy wires noted. The cardiac silhouette is enlarged and stable No focal consolidative process or pulmonary edema. There is no pneumothorax. Moderate degenerative changes of the right shoulder. IMPRESSION: Cardiomegaly without acute pulmonary findings. Electronically signed by: Tonya Gurrola MD 05/25/2020 1:35 PM CDT
--- NOTE | 2020-05-25 13:37 | RAD ---
EXAM: X-RAY, three views of the right shoulder HISTORY: shoulder pain. COMPARISON: Right shoulder x-ray from 03/16/2020. FINDINGS: Bones: No fracture or dislocation. Suspected acromioplasty. Mild degenerative changes of acromioclavicular joint. Soft tissues: No focal soft tissue swelling. IMPRESSION: No acute bone abnormality. Electronically signed by: Ollie Pierce MD 05/25/2020 1:36 PM CDT
[2020-05-25] MEDS ORDERED: SODIUM CHLORIDE 0.9% 1000ML 1,000 ML IVS PRN (14:02)
[2020-05-25] MEDS ORDERED: INSULIN, REG.(HUMAN) 100 U/ML VIAL SUBCU ONE (14:05)
[2020-05-25 16:52] VITALS: TEMP 98.2
[2020-05-25 16:54] VITALS: BP 135/87; O2SAT 95
== END 2020-05-25 16:45 | disposition home or self-care (01) ==
LOC: ER 12:21
DX: M25.511 Pain in right shoulder (principal); E11.65 Type 2 diabetes mellitus with hyperglycemia; G89.29 Other chronic pain; J44.9 Chronic obstructive pulmonary disease, unspecified; I50.9 Heart failure, unspecified; I11.0 Hypertensive heart disease with heart failure; Z87.891 Personal history of nicotine dependence; Z79.4 Long term (current) use of insulin; Z79.899 Other long term (current) drug therapy; Z79.01 Long term (current) use of anticoagulants
CPT/HCPCS: 36415; 36416; 71045; 73030; 80053; 81001; 82948; 84484; 85025; 93005; J1100; J7030

== ENCOUNTER 2020-05-31 12:43 | Emergency (ER) | payer OTHER ==
--- NOTE | 2020-05-31 13:03 | ED.PDOC ---
History of Present Illness - General Time Seen by Provider: 05/31/20 13:00 - History of Present Illness Initial Comments: 65 yo male comes in when he woke up he had room spinning sensation. Tried to get out of bed and fell on floor. did not hit head, no loc. Has skin tear on elbow and knee. NO weakness. + n/v. no chest pain or shortness of breath. Allergies/Adverse Reactions: Allergies NO KNOWN ALLERGY Allergy (Verified 11/24/19 15:22) Home Medications: Ambulatory Orders Insulin Detemir [Levemir Pen] 20 units SUBCU BID PRN 08/31/15 Nitroglycerin [Nitrostat] 0.4 mg SL Q5MIN PRN 10/21/15 Pantoprazole Sodium 40 mg PO DAILY 10/21/15 Allopurinol [Zyloprim] 100 mg PO DAILY 12/21/15 Atorvastatin Calcium [Lipitor] 40 mg PO DAILY 12/21/15 Budes/Formoterol INH 160/4.5 [Symbicort Inhaler 160/4.5] 1 puff INH DAILY 12/21/15 Tramadol HCl 50 mg PO Q8HR PRN #20 tab 09/18/19 Gabapentin 600 mg PO BID 10/12/19 Warfarin Sodium 3 mg PO DAILY 10/12/19 Warfarin Sodium [Coumadin] 3 mg PO DAILY #8 tab 10/12/19 Acetamin W/Cod #3 Tab [Tylenol w/CODEINE #3] 1 - 2 tablet PO Q6H PRN #20 tab 03/16/20 Meclizine HCl [Meclizine] 25 mg PO TID PRN #21 chw 05/31/20 Review of Systems - Review of Systems Constitutional: Denies: fever, malaise EENTM: States: ear pain. Denies: eye pain, ear discharge, nose pain, nose congestion, throat pain, throat swelling, mouth pain, mouth swelling Respiratory: Denies: cough, orthopnea, short of breath, stridor Cardiology: Denies: chest pain, edema, palpitations, syncope Gastrointestinal/Abdominal: States: nausea, vomiting. Denies: abdominal pain, constipation, diarrhea Genitourinary: Denies: discharge, dysuria, frequency, hematuria Musculoskeletal: States: joint pain - chronic . Denies: back pain, joint swelling, muscle pain, muscle stiffness, neck pain Skin: States: see HPI Neurological: States: see HPI. Denies: headache, numbness, paresthesia, tingling, tremors, weakness Endocrine: Denies: unexplained weight gain, unexplained weight loss Hematologic/Lymphatic: Denies: blood clots, easy bleeding, easy bruising Past Medical History (General) - Patient Medical History Hx Seizures: No Hx Stroke: No Hx Dementia: No Hx Asthma: Yes Hx of COPD: Yes Hx Cardiac Disorders: Yes - arrhythmia Hx Congestive Heart Failure: Yes Hx Pacemaker: No Hx Hypertension: Yes Hx Thyroid Disease: No Hx Diabetes: Yes Hx Gastroesophageal Reflux: No Hx Renal Disease: No Hx Cancer: No Hx of HIV: No Hx Hepatitis C: No Hx MRSA: No - Vaccination History Hx Tetanus, Diphtheria Vaccination: No Hx Influenza Vaccination: No Hx Pneumococcal Vaccination: Yes - Social History Hx Tobacco Use: Yes Hx Chewing Tobacco Use: No Hx Alcohol Use: No Hx Substance Use: No Hx Substance Use Treatment: No Hx Depression: No Hx Physical Abuse: No Hx Emotional Abuse: No Hx Suspected Abuse: No - Female History Patient : No Family Medical History - Family History Father Family History: Unknown Name: Robert Mercado Age (years): 69 Living Status: Age at (years of age): 69 Cause of : Natural causes. Hx Family Asthma: - Pt Hx Family Congestive Heart Failure: Yes - Pt Hx Family Hypertension: Yes - Father, siblings Hx Family Stroke: Yes - Mother Hx Cardiac Disease: Yes - Father and siblings Hx Family Diabetes: Yes - Father and sister Hx Family Cancer: No Physical Exam - Physical Exam General Appearance: Alert, Comfortable, No apparent distress, Other - dishevled, bottom of feet are black from dirt. Eye Exam: bilateral normal, bilateral other - nystagmus noted Ears, Nose, Throat: hearing grossly normal, normal ENT inspection, normal pharynx, other - scarring bilteral TM Neck: non-tender, full range of motion, supple, normal inspection Respiratory: chest non-tender, lungs clear, normal breath sounds, no respiratory distress, no accessory muscle use Cardiovascular/Chest: normal peripheral pulses, regular rate, rhythm, no edema, no gallop, no JVD, no murmur Peripheral Pulses: radial,right: 2+, radial,left: 2+, dorsalis pedis,right: 2+, dorsalis pedis,left: 2+ Gastrointestinal/Abdominal: normal bowel sounds, non tender, soft, no organomegaly, no pulsatile mass Rectal Exam: deferred Back Exam: normal inspection, no CVA tenderness, no vertebral tenderness Extremity: normal range of motion, non-tender, normal inspection, no pedal edema, no calf tenderness, normal capillary refill Neurologic: manager merchandise II-XII nml as tested, no motor/sensory deficits, alert, normal mood/affect, oriented x 3, other - HINTS exam negative, stable gait, finger to nose intact, no pronator drift. muscle strength mario sym and intact Skin Exam: normal color, warm/dry, other - two skin abrasians noted on right elbow and right knee. Lymphatic: no adenopathy Progress - Progress Progress: 05/31/20 negative HINTS exam. no evidence of dka. suspect BPPV. CT head without negative for ICH. EKG HR 83 NSR, with PVC, prlong qt., no sign change when compared to ekg on 05/25/20. attempted modified eplys maneuver. This seems to have helped. Will po challenge and if po tolerant dc home. Patient instructed to hold Coumadin 2 days and get repeat INR. He is to call his primary care doctor. The data reviewed when caring for this patient included: nurse notes, prior records, etc. The history and assessments from nurses notes were reviewed and considered, and the patient's home medication list was also reviewed and considered. My assessment and the results of testing completed here in the ED were discussed with the patient/family. 05/31/20 18:43 Discharge Stat Laboratory Results WBC 8.9 K/mm3 (4.8-10.8) 05/31/20 13:20 RBC 4.18 M/mm3 (4.70-6.10) L 05/31/20 13:20 Hgb 13.5 gm/dL (14.0-18.0) L 05/31/20 13:20 Hct 38.4 % (42.0-52.0) L 05/31/20 13:20 MCV 91.9 fl (80.0-94.0) 05/31/20 13:20 MCH 32.3 pg (27.0-31.0) H 05/31/20 13:20 MCHC 35.2 g/dL (33.0-37.0) 05/31/20 13:20 RDW 12.9 % (11.5-14.5) 05/31/20 13:20 Plt Count 139 K/mm3 (130-400) 05/31/20 13:20 MPV 8.9 fl (7.40-10.4) 05/31/20 13:20 Absolute Neuts (auto) 7.20 K/uL (1.8-6.8) H 05/31/20 13:20 Absolute Lymphs (auto) 1.00 K/uL (1.0-3.4) 05/31/20 13:20 Absolute Monos (auto) 0.40 K/uL (0.2-0.8) 05/31/20 13:20 Absolute Eos (auto) 0.20 K/uL (0.0-0.4) 05/31/20 13:20 Absolute Basos (auto) 0.10 K/uL (0.0-0.1) 05/31/20 13:20 Neutrophils % 80.5 % (42.0-78.0) H 05/31/20 13:20 Lymphocytes % 11.4 % (20.0-50.0) L 05/31/20 13:20 Monocytes % 5.0 % (2.0-9.0) 05/31/20 13:20 Eosinophils % 2.0 % (1.0-5.0) 05/31/20 13:20 Basophils % 1.1 % (0.0-2.0) 05/31/20 13:20 PT 31.4 SECONDS (9.0-10.9) H* 05/31/20 13:20 INR 3.17 (0.9-1.15) H 05/31/20 13:20 PTT (SP) 43.5 SECONDS (21.8-31.6) H 05/31/20 13:20 Sodium 133 mmol/L (135-145) L 05/31/20 13:20 Potassium 4.3 mmol/L (3.6-5.0) 05/31/20 13:20 Chloride 99 mmol/L (101-111) L 05/31/20 13:20 Carbon Dioxide 27 mmol/L (21-31) 05/31/20 13:20 Anion Gap 11.3 (12-18) L 05/31/20 13:20 BUN 22 mg/dL (7-18) H 05/31/20 13:20 Creatinine 1.20 mg/dL (0.6-1.3) 05/31/20 13:20 BUN/Creatinine Ratio 18.3 (10-20) 05/31/20 13:20 POC Glucose 389 mg/dL (70-105) H 05/31/20 18:00 Random Glucose 480 mg/dL (70-105) H* 05/31/20 16:46 Serum Osmolality 293.8 mOsm/L (275-295) 05/31/20 13:20 Calcium 8.5 mg/dL (8.4-10.2) 05/31/20 13:20 Total Bilirubin 1.1 mg/dL (0.2-1.0) H 05/31/20 13:20 AST 16 IU/L (10-42) 05/31/20 13:20 ALT 20 IU/L (10-60) 05/31/20 13:20 Alkaline Phosphatase 100 IU/L (42-121) 05/31/20 13:20 Troponin I 0.03 ng/mL (0.01-0.05) 05/31/20 13:20 B-Natriuretic Peptide 255.0 pg/ml (0-100) H* 05/31/20 13:20 Serum Total Protein 7.5 gm/dL (6.4-8.2) 05/31/20 13:20 Albumin 3.7 g/dl (3.2-5.5) 05/31/20 13:20 Globulin 3.8 gm/dL (2.3-3.5) H 05/31/20 13:20 Albumin/Globulin Ratio 1.0 (1.1-1.9) L 05/31/20 13:20 Urine Color Yellow (Yellow) 05/31/20 14:47 Urine Appearance Clear (Clear) 05/31/20 14:47 Urine pH 7.0 (4.5-7.8) 05/31/20 14:47 Ur Specific Stanton 1.015 (1.005-1.030) 05/31/20 14:47 Urine Protein 100 mg/dL H 05/31/20 14:47 Urine Glucose (UA) 500 mg/dL (Negative) H 05/31/20 14:47 Urine Ketones Negative mg/dL (NEGATIVE) 05/31/20 14:47 Urine Blood Trace-lysed (Negative) H 05/31/20 14:47 Urine Nitrite Negative 05/31/20 14:47 Urine Bilirubin Negative (NEGATIVE) 05/31/20 14:47 Urine Urobilinogen 1.0 mg/dL (0.2-1.0) 05/31/20 14:47 Ur Leukocyte Esterase Negative (Negative) 05/31/20 14:47 Urine RBC 1-3 /hpf 05/31/20 14:47 Urine WBC 0 /hpf 05/31/20 14:47 Ur Epithelial Cells 0 /hpf 05/31/20 14:47 Urine Bacteria 0 05/31/20 14:47 Serum Ketones Negative 05/31/20 13:20 All questions were answered, and they express understanding of my assessment and the plan. They have been instructed to return if their symptoms worsen, and have been asked to follow up with their primary care physician to recheck today's presenting complaint. Return precautions given. I have reviewed medication, benefits, alternatives and side effects. Patient decided to proceed with medication. Susan Brown DO #[id number] Departure - Departure Clinical Impression: Vertigo, Abrasion Nausea & vomiting Qualifiers: Vomiting type: unspecified Vomiting Intractability: unspecified Qualified Code(s): R11.2 - Nausea with vomiting, unspecified Time of Disposition: 15:45 Disposition: Discharge to Home or Self Care Condition: Fair Departure Forms: ED Discharge - Pt. Copy, Patient Portal Self Enrollment Instructions: Vertigo (a Type of Dizziness), Preventing Falls, Vestibular Exercises Referrals: VIOLETTA CHÁVEZ [Primary Care Provider] - 1-2 Days Prescriptions: Meclizine HCl [Meclizine] 25 mg PO TID PRN #21 chw PRN Reason: Dizziness Home Medications: Ambulatory Orders Insulin Detemir [Levemir Pen] 20 units SUBCU BID PRN 08/31/15 Nitroglycerin [Nitrostat] 0.4 mg SL Q5MIN PRN 10/21/15 Pantoprazole Sodium 40 mg PO DAILY 10/21/15 Allopurinol [Zyloprim] 100 mg PO DAILY 12/21/15 Atorvastatin Calcium [Lipitor] 40 mg PO DAILY 12/21/15 Budes/Formoterol INH 160/4.5 [Symbicort Inhaler 160/4.5] 1 puff INH DAILY 12/21/15 Tramadol HCl 50 mg PO Q8HR PRN #20 tab 09/18/19 Gabapentin 600 mg PO BID 10/12/19 Warfarin Sodium 3 mg PO DAILY 10/12/19 Warfarin Sodium [Coumadin] 3 mg PO DAILY #8 tab 10/12/19 Acetamin W/Cod #3 Tab [Tylenol w/CODEINE #3] 1 - 2 tablet PO Q6H PRN #20 tab 03/16/20 Meclizine HCl [Meclizine] 25 mg PO TID PRN #21 chw 05/31/20 Additional Instructions: hold coumadin/warfarin 2 days, repeat INR. Follow up with your primary care physician.
[2020-05-31] MEDS ORDERED: MECLIZINE HCL 12.5 MG TAB PO ONE ×2 (13:09→18:25)
[2020-05-31] MEDS ORDERED: ONDANSETRON ODT 8 MG TAB SL ONE (13:10)
[2020-05-31] MEDS ORDERED: INSULIN, REG.(HUMAN) 100 U/ML VIAL SUBCU ONE (14:31)
[2020-05-31] MEDS ORDERED: TETANUS,DIPHTHERIA,PERTUSSIS 1 EA SYG IM ONE (14:51)
[2020-05-31] MEDS ORDERED: SODIUM CHLORIDE 0.9% 250ML 250 ML IVS ONE (17:00)
[2020-05-31] MEDS ORDERED: INSULIN, REG.(HUMAN) 100 U/ML VIAL IV ONE (17:23)
--- NOTE | 2020-05-31 17:27 | CT ---
EXAM DESCRIPTION: Head CLINICAL HISTORY: fall COMPARISON: Previous CT head September 02, 2019 TECHNIQUE: Noncontrast head CT was performed with routine protocol. FINDINGS: Normal becerra-white matter differentiation. Ventricles and sulci are normal for age. No high density hemorrhage, focal edema or shift of the midline. No sulcal effacement. Normal orbital contents. Basilar cisterns appear clear. Intact calvarium with no fracture or lytic lesion. Normal aeration of tympanic cavities and mastoid air cells. No fluid levels in the paranasal sinuses. Retention cysts in the inferior right maxillary sinus. Skull base appears intact. Symmetrical internal auditory canals. IMPRESSION: No acute intracranial pathologic process. This exam was performed according to our departmental dose-optimization program, which includes automated exposure control, adjustment of the mA and/or kV according to patient size and/or use of iterative reconstruction technique. Total DLP equals 859.97 mGycm. Electronically signed by: Jorge Luis Mccray MD 05/31/2020 5:26 PM CDT
[2020-05-31] MEDS ORDERED: ONDANSETRON INJ 4 MG/2 ML VIAL ONE (18:00)
[2020-05-31] MEDS ORDERED: ONDANSETRON INJ 4 MG/2 ML VIAL IV ONE (18:04)
[2020-05-31 18:17] VITALS: O2SAT 92
[2020-05-31] MEDS ORDERED: ONDANSETRON ODT (ER DISP) 8 MG TAB PO PRN (18:29)
[2020-05-31] MEDS ORDERED: PROMETHAZINE TAB (ER DISP) 25 MG TAB ONE (19:11)
[2020-05-31] MEDS ORDERED: PROMETHAZINE TAB (ER DISP) 25 MG TAB PO ONE (19:13)
[2020-05-31 19:28] VITALS: BP 147/96; TEMP 97.2
== END 2020-05-31 19:20 | disposition home or self-care (01) ==
LOC: ER 12:43
DX: R42 Dizziness and giddiness (principal); S80.211A Abrasion, right knee, initial encounter; S50.311A Abrasion of right elbow, initial encounter; I50.9 Heart failure, unspecified; J44.9 Chronic obstructive pulmonary disease, unspecified; E11.9 Type 2 diabetes mellitus without complications; I11.0 Hypertensive heart disease with heart failure; Z87.891 Personal history of nicotine dependence; Z79.01 Long term (current) use of anticoagulants; Z79.899 Other long term (current) drug therapy; W06.XXXA Fall from bed, initial encounter; Y92.9 Unspecified place or not applicable
CPT/HCPCS: 36415; 36416; 70450; 80053; 81001; 82009; 82947; 82948; 83880; 84484; 85025; 85610; 85730; 90471; 90715; 93005; J2405; J7050; Q0169

== ENCOUNTER 2020-10-13 08:06 | Emergency (ER) | payer OTHER ==
[2020-10-13] MEDS ORDERED: IBUPROFEN 200 MG TAB PO ONE (08:25)
[2020-10-13] MEDS ORDERED: CYCLOBENZAPRINE HCL 10 MG TAB PO ONE (08:25)
[2020-10-13] MEDS ORDERED: ACETAMINOPHEN W/COD #3 TAB 1 EA TAB PO ONE (08:25)
--- NOTE | 2020-10-13 08:29 | ED.PDOC ---
History of Present Illness - General Chief Complaint: Trauma Stated Complaint: R leg pain r/t a fall Time Seen by Provider: 10/13/20 08:15 Additional Information: Patient is a 65-year-old male who presents to the ED with chief complaint of right upper leg pain. Patient indicates that 2 days ago he fell onto his bed, mechanical trip and fall. Patient says he woke the next day with pain in his posterior right thigh, behind the right knee and in the proximal right calf. No other injuries, patient denies head injury, LOC or neck pain. Patient has chronic bursitis in his shoulder and takes gabapentin for this. There are no other complaints at this time. - History of Present Illness Allergies/Adverse Reactions: Allergies NO KNOWN ALLERGY Allergy (Verified 11/24/19 15:22) Home Medications: Ambulatory Orders Insulin Detemir [Levemir Pen] 20 units SUBCU BID PRN 08/31/15 Nitroglycerin [Nitrostat] 0.4 mg SL Q5MIN PRN 10/21/15 Pantoprazole Sodium 40 mg PO DAILY 10/21/15 Allopurinol [Zyloprim] 100 mg PO DAILY 12/21/15 Atorvastatin Calcium [Lipitor] 40 mg PO DAILY 12/21/15 Budes/Formoterol INH 160/4.5 [Symbicort Inhaler 160/4.5] 1 puff INH DAILY 12/21/15 Tramadol HCl 50 mg PO Q8HR PRN #20 tab 09/18/19 Gabapentin 600 mg PO BID 10/12/19 Warfarin Sodium 3 mg PO DAILY 10/12/19 Warfarin Sodium [Coumadin] 3 mg PO DAILY #8 tab 10/12/19 Acetamin W/Cod #3 Tab [Tylenol w/CODEINE #3] 1 - 2 tablet PO Q6H PRN #20 tab 03/16/20 Meclizine HCl [Meclizine] 25 mg PO TID PRN #21 chw 05/31/20 Cyclobenzaprine HCl [Flexeril] 10 mg PO Q8H PRN #20 tab 10/13/20 Ibuprofen 800 mg PO Q8H PRN #20 tab 10/13/20 Review of Systems - Review of Systems Constitutional: States: no symptoms reported. Denies: chills, fever EENTM: States: no symptoms reported Respiratory: States: no symptoms reported. Denies: cough, short of breath Cardiology: States: no symptoms reported. Denies: chest pain, palpitations Gastrointestinal/Abdominal: States: no symptoms reported. Denies: abdominal pain, nausea, vomiting Musculoskeletal: States: see HPI All other Systems: Reviewed and Negative Past Medical History (General) - Patient Medical History Hx Seizures: No Hx Stroke: No Hx Dementia: No Hx Asthma: Yes Hx of COPD: Yes Hx Cardiac Disorders: Yes - arrhythmia Hx Congestive Heart Failure: Yes Hx Pacemaker: No Hx Hypertension: Yes Hx Thyroid Disease: No Hx Diabetes: Yes Hx Gastroesophageal Reflux: No Hx Renal Disease: No Hx Cancer: No Hx of HIV: No Hx Hepatitis C: No Hx MRSA: No - Vaccination History Hx Tetanus, Diphtheria Vaccination: No Hx Influenza Vaccination: No Hx Pneumococcal Vaccination: Yes - Social History Hx Tobacco Use: Yes Hx Chewing Tobacco Use: No Hx Alcohol Use: No Hx Substance Use: No Hx Substance Use Treatment: No Hx Depression: No Hx Physical Abuse: No Hx Emotional Abuse: No Hx Suspected Abuse: No - Female History Patient : No Family Medical History - Family History Father Family History: Unknown Name: Robert Mercado Age (years): 69 Living Status: Age at (years of age): 69 Cause of : Natural causes. Hx Family Asthma: - Pt Hx Family Congestive Heart Failure: Yes - Pt Hx Family Hypertension: Yes - Father, siblings Hx Family Stroke: Yes - Mother Hx Cardiac Disease: Yes - Father and siblings Hx Family Diabetes: Yes - Father and sister Hx Family Cancer: No Physical Exam - Physical Exam General Appearance: Alert, Comfortable, No apparent distress, Well Developed, Well Nourished Ears, Nose, Throat: normal ENT inspection, other - Head and scalp nontender, no abrasion or hematoma. Neck: normal inspection, other - Negative cervical vertebral tenderness to palpation Respiratory: chest non-tender, lungs clear, normal breath sounds, no respiratory distress Cardiovascular/Chest: normal peripheral pulses, regular rate, rhythm, no edema, no gallop, no JVD, no murmur Gastrointestinal/Abdominal: non tender, soft Back Exam: normal inspection, no CVA tenderness, no vertebral tenderness Extremity: other - Right leg with full range of motion hip knee and ankle. Normal inspection, no ecchymoses, abrasion or edema. There is mild tenderness to palpation over the lateral right hip, posterior right femur and proximal calf. 2+ DP pulse Neurologic: no motor/sensory deficits, alert Skin Exam: normal color, warm/dry Progress - Progress Progress: 10/13/20 08:31 Differential diagnosis includes but is not limited to fracture, sprain, contusion, dislocation. 10/13/20 10:08 Patient's imaging is unremarkable and clinically patient with leg strain from trying to brace himself from a fall. Will DC with analgesics and patient to rest and follow-up with his PCP vital signs stable, patient is NAD and looks clinically well and I believe is safe for discharge with outpatient follow-up. Follow-up instructions, discharge instructions and return to ED precautions discussed with patient. Patient voices understanding and willingness to comply with instructions. All laboratory and/or radiographic results have been discussed with the patient, and all questions answered. Patient is happy with plan. Departure - Departure Clinical Impression: Strain of knee and leg, right Qualifiers: Encounter type: initial encounter Qualified Code(s): S86.911A - Strain of unspecified muscle(s) and tendon(s) at lower leg level, right leg, initial encounter Time of Disposition: 10:09 Disposition: Discharge to Home or Self Care Condition: Good Departure Forms: ED Discharge - Pt. Copy, Patient Portal Self Enrollment Instructions: DI for Trauma Referrals: VIOLETTA CHÁVEZ [Primary Care Provider] - 1 Week Prescriptions: Cyclobenzaprine HCl [Flexeril] 10 mg PO Q8H PRN #20 tab PRN Reason: Pain Ibuprofen 800 mg PO Q8H PRN #20 tab PRN Reason: Pain Home Medications: Ambulatory Orders Insulin Detemir [Levemir Pen] 20 units SUBCU BID PRN 08/31/15 Nitroglycerin [Nitrostat] 0.4 mg SL Q5MIN PRN 10/21/15 Pantoprazole Sodium 40 mg PO DAILY 10/21/15 Allopurinol [Zyloprim] 100 mg PO DAILY 12/21/15 Atorvastatin Calcium [Lipitor] 40 mg PO DAILY 12/21/15 Budes/Formoterol INH 160/4.5 [Symbicort Inhaler 160/4.5] 1 puff INH DAILY 12/21/15 Tramadol HCl 50 mg PO Q8HR PRN #20 tab 09/18/19 Gabapentin 600 mg PO BID 10/12/19 Warfarin Sodium 3 mg PO DAILY 10/12/19 Warfarin Sodium [Coumadin] 3 mg PO DAILY #8 tab 10/12/19 Acetamin W/Cod #3 Tab [Tylenol w/CODEINE #3] 1 - 2 tablet PO Q6H PRN #20 tab 03/16/20 Meclizine HCl [Meclizine] 25 mg PO TID PRN #21 chw 05/31/20 Cyclobenzaprine HCl [Flexeril] 10 mg PO Q8H PRN #20 tab 10/13/20 Ibuprofen 800 mg PO Q8H PRN #20 tab 10/13/20
[2020-10-13 08:35] VITALS: TEMP 97.9
--- NOTE | 2020-10-13 09:21 | RAD ---
EXAM DESCRIPTION: Knee,Right 1 or 2 Views (accession [id number]), Femur,Right (accession [id number]), Hip,Right 2 Views (accession [id number]) CLINICAL HISTORY: 65 years Male fall, pain COMPARISON: Left knee dated 08/29/2019 TECHNIQUE: AP and frog leg views of the [right]hip, AP and lateral views right femur and AP and cross table lateral views of the right knee are obtained. FINDINGS: OSSEOUS: There is no evidence of acute fracture or osteolytic/osteoblastic lesions. No evidence of subluxation or dislocation. The right hip joint and lateral compartments of the right knee are preserved. There is mild narrowing of the medial and patellofemoral compartments with minimal tricompartmental marginal osteophytosis. There is no evidence of degenerative osteophytosis or sclerosis. There is no evidence of marginal erosive changes to suggest an inflammatory arthritis. SOFT TISSUE: There is no significant soft tissue swelling or mass. There is diffuse muscle wasting No evidence of significant soft tissue calcifications with the exception of atherosclerotic vascular calcifications. Tiny metallic clips along the medial and posterior aspect of the right knee and proximal lower leg suggest prior venous harvesting or other intervention. No evidence of a hip joint or suprapatellar effusions in the right lower extremity. IMPRESSION: No acute osseous abnormalities in the right hip, right femur and right knee. Remainder of findings as described above. Electronically signed by: Manuela Vargas MD 10/13/2020 9:19 AM [facility]
--- NOTE | 2020-10-13 09:21 | RAD ---
EXAM DESCRIPTION: Knee,Right 1 or 2 Views (accession [id number]), Femur,Right (accession [id number]), Hip,Right 2 Views (accession [id number]) CLINICAL HISTORY: 65 years Male fall, pain COMPARISON: Left knee dated 08/29/2019 TECHNIQUE: AP and frog leg views of the [right]hip, AP and lateral views right femur and AP and cross table lateral views of the right knee are obtained. FINDINGS: OSSEOUS: There is no evidence of acute fracture or osteolytic/osteoblastic lesions. No evidence of subluxation or dislocation. The right hip joint and lateral compartments of the right knee are preserved. There is mild narrowing of the medial and patellofemoral compartments with minimal tricompartmental marginal osteophytosis. There is no evidence of degenerative osteophytosis or sclerosis. There is no evidence of marginal erosive changes to suggest an inflammatory arthritis. SOFT TISSUE: There is no significant soft tissue swelling or mass. There is diffuse muscle wasting No evidence of significant soft tissue calcifications with the exception of atherosclerotic vascular calcifications. Tiny metallic clips along the medial and posterior aspect of the right knee and proximal lower leg suggest prior venous harvesting or other intervention. No evidence of a hip joint or suprapatellar effusions in the right lower extremity. IMPRESSION: No acute osseous abnormalities in the right hip, right femur and right knee. Remainder of findings as described above. Electronically signed by: Manuela Vargas MD 10/13/2020 9:19 AM [facility]
--- NOTE | 2020-10-13 09:21 | RAD ---
EXAM DESCRIPTION: Knee,Right 1 or 2 Views (accession [id number]), Femur,Right (accession [id number]), Hip,Right 2 Views (accession [id number]) CLINICAL HISTORY: 65 years Male fall, pain COMPARISON: Left knee dated 08/29/2019 TECHNIQUE: AP and frog leg views of the [right]hip, AP and lateral views right femur and AP and cross table lateral views of the right knee are obtained. FINDINGS: OSSEOUS: There is no evidence of acute fracture or osteolytic/osteoblastic lesions. No evidence of subluxation or dislocation. The right hip joint and lateral compartments of the right knee are preserved. There is mild narrowing of the medial and patellofemoral compartments with minimal tricompartmental marginal osteophytosis. There is no evidence of degenerative osteophytosis or sclerosis. There is no evidence of marginal erosive changes to suggest an inflammatory arthritis. SOFT TISSUE: There is no significant soft tissue swelling or mass. There is diffuse muscle wasting No evidence of significant soft tissue calcifications with the exception of atherosclerotic vascular calcifications. Tiny metallic clips along the medial and posterior aspect of the right knee and proximal lower leg suggest prior venous harvesting or other intervention. No evidence of a hip joint or suprapatellar effusions in the right lower extremity. IMPRESSION: No acute osseous abnormalities in the right hip, right femur and right knee. Remainder of findings as described above. Electronically signed by: Manuela Vargas MD 10/13/2020 9:19 AM [facility]
[2020-10-13 10:39] VITALS: BP 114/82; O2SAT 93
== END 2020-10-13 10:20 | disposition home or self-care (01) ==
LOC: ER 08:06
DX: S86.911A Strain of unspecified muscle(s) and tendon(s) at lower leg level, right leg, initial encounter (principal); J44.9 Chronic obstructive pulmonary disease, unspecified; I50.9 Heart failure, unspecified; I11.0 Hypertensive heart disease with heart failure; E11.9 Type 2 diabetes mellitus without complications; Z79.899 Other long term (current) drug therapy; Z87.891 Personal history of nicotine dependence; Z79.4 Long term (current) use of insulin; Z79.01 Long term (current) use of anticoagulants; W01.198A Fall on same level from slipping, tripping and stumbling with subsequent striking against other object, initial encounter; Y92.9 Unspecified place or not applicable

== ENCOUNTER 2020-11-06 03:55 | Emergency (ER) | payer OTHER ==
[2020-11-06 04:06] VITALS: O2SAT 97
--- NOTE | 2020-11-06 04:26 | RAD ---
EXAM DESCRIPTION: XR Ankle, Right 3 Views CLINICAL HISTORY: right ankle twisted TECHNIQUE: Three views of the right ankle are submitted. COMPARISON: None available for comparison FINDINGS: Bones: No acute fracture. Joints: No dislocation. Soft tissues: Unremarkable IMPRESSION: No acute injury. Electronically signed by: Bobbi King MD 11/06/2020 4:24 AM [facility]
[2020-11-06] MEDS ORDERED: IBUPROFEN 200 MG TAB PO ONE (04:34)
--- NOTE | 2020-11-06 04:38 | ED.PDOC ---
History of Present Illness - General Chief Complaint: Lower Extremity Injury Stated Complaint: ankle pain Time Seen by Provider: 11/06/20 04:29 Source: patient, RN notes reviewed, Vital Signs reviewed Exam Limitations: no limitations - History of Present Illness Initial Comments: Pt presents with 3 day h/o lateral right ankle pain. States 3 days ago he missed a step walking down stairs and twisted right ankle. He has been ambulatory with mild pain. Has not taken anything for pain at home. Denies falling, hitting head, knee pain, neck pain or back pain. Allergies/Adverse Reactions: Allergies NO KNOWN ALLERGY Allergy (Verified 11/24/19 15:22) Home Medications: Ambulatory Orders Insulin Detemir [Levemir Pen] 20 units SUBCU BID PRN 08/31/15 Nitroglycerin [Nitrostat] 0.4 mg SL Q5MIN PRN 10/21/15 Pantoprazole Sodium 40 mg PO DAILY 10/21/15 Allopurinol [Zyloprim] 100 mg PO DAILY 12/21/15 Atorvastatin Calcium [Lipitor] 40 mg PO DAILY 12/21/15 Budes/Formoterol INH 160/4.5 [Symbicort Inhaler 160/4.5] 1 puff INH DAILY 12/21/15 Tramadol HCl 50 mg PO Q8HR PRN #20 tab 09/18/19 Gabapentin 600 mg PO BID 10/12/19 Warfarin Sodium 3 mg PO DAILY 10/12/19 Warfarin Sodium [Coumadin] 3 mg PO DAILY #8 tab 10/12/19 Acetamin W/Cod #3 Tab [Tylenol w/CODEINE #3] 1 - 2 tablet PO Q6H PRN #20 tab 03/16/20 Meclizine HCl [Meclizine] 25 mg PO TID PRN #21 chw 05/31/20 Cyclobenzaprine HCl [Flexeril] 10 mg PO Q8H PRN #20 tab 10/13/20 Ibuprofen 800 mg PO Q8H PRN #20 tab 10/13/20 traMADol 37.5MG/APAP 325MG [Ultracet] 1 ea PO .Q4H PRN 4 Days #20 tab 11/06/20 Review of Systems - Review of Systems Constitutional: Denies: chills, fever EENTM: Denies: nose congestion Respiratory: Denies: cough, short of breath Cardiology: Denies: chest pain, edema, palpitations, syncope Gastrointestinal/Abdominal: Denies: abdominal pain, nausea, vomiting Musculoskeletal: States: see HPI All other Systems: Reviewed and Negative Past Medical History (General) - Patient Medical History Hx Seizures: No Hx Stroke: No Hx Dementia: No Hx Asthma: Yes Hx of COPD: Yes Hx Cardiac Disorders: Yes - arrhythmia Hx Congestive Heart Failure: Yes Hx Pacemaker: No Hx Hypertension: Yes Hx Thyroid Disease: No Hx Diabetes: Yes Hx Gastroesophageal Reflux: No Hx Renal Disease: No Hx Cancer: No Hx of HIV: No Hx Hepatitis C: No Hx MRSA: No - Vaccination History Hx Tetanus, Diphtheria Vaccination: No Hx Influenza Vaccination: No Hx Pneumococcal Vaccination: Yes - Social History Hx Tobacco Use: Yes Hx Chewing Tobacco Use: No Hx Alcohol Use: No Hx Substance Use: No Hx Substance Use Treatment: No Hx Depression: No Hx Physical Abuse: No Hx Emotional Abuse: No Hx Suspected Abuse: No - Female History Patient : No Family Medical History - Family History Father Family History: Unknown Name: Robert Mercado Age (years): 69 Living Status: Age at (years of age): 69 Cause of : Natural causes. Hx Family Asthma: - Pt Hx Family Congestive Heart Failure: Yes - Pt Hx Family Hypertension: Yes - Father, siblings Hx Family Stroke: Yes - Mother Hx Cardiac Disease: Yes - Father and siblings Hx Family Diabetes: Yes - Father and sister Hx Family Cancer: No Physical Exam - Physical Exam General Appearance: Alert, Comfortable Neck: non-tender, full range of motion Cardiovascular/Respiratory: normal peripheral pulses, normal breath sounds, no respiratory distress Back: no vertebral tenderness Knee: normal inspection, non-tender, no evidence of injury, normal ROM Ankle: other - Right ankle is TTP lateral malleolus. No edema, erythema or deformity Foot: normal inspection, non-tender Mental 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 Skin: normal color, warm/dry Progress - Progress Progress: 11/06/20 04:39 Pt presents with 3 day h/o right lateral ankle pain after an injury. He is NVI. Imaging shows no sign of fracture or dislocation. Will treat with Tramadol, RICE. He will f/u with PCP in 1-2 days for continued evaluation. RIGHT ANKLE XRAY No acute process Departure - Departure Clinical Impression: Right ankle sprain Qualifiers: Encounter type: initial encounter Involved ligament of ankle: unspecified ligament Qualified Code(s): S93.401A - Sprain of unspecified ligament of right ankle, initial encounter Time of Disposition: 04:40 Disposition: Discharge to Home or Self Care Condition: Good Departure Forms: ED Discharge - Pt. Copy, Patient Portal Self Enrollment Instructions: DI for Leg Pain, Ankle Sprain (DC) Diet: resume usual diet Activity: increase activity as tolerated Referrals: VIOLETTA CHÁVEZ [Primary Care Provider] - 1-2 Days Prescriptions: traMADol 37.5MG/APAP 325MG [Ultracet] 1 ea PO .Q4H PRN 4 Days #20 tab PRN Reason: Pain Home Medications: Ambulatory Orders Insulin Detemir [Levemir Pen] 20 units SUBCU BID PRN 08/31/15 Nitroglycerin [Nitrostat] 0.4 mg SL Q5MIN PRN 10/21/15 Pantoprazole Sodium 40 mg PO DAILY 10/21/15 Allopurinol [Zyloprim] 100 mg PO DAILY 12/21/15 Atorvastatin Calcium [Lipitor] 40 mg PO DAILY 12/21/15 Budes/Formoterol INH 160/4.5 [Symbicort Inhaler 160/4.5] 1 puff INH DAILY 12/21/15 Tramadol HCl 50 mg PO Q8HR PRN #20 tab 09/18/19 Gabapentin 600 mg PO BID 10/12/19 Warfarin Sodium 3 mg PO DAILY 10/12/19 Warfarin Sodium [Coumadin] 3 mg PO DAILY #8 tab 10/12/19 Acetamin W/Cod #3 Tab [Tylenol w/CODEINE #3] 1 - 2 tablet PO Q6H PRN #20 tab 03/16/20 Meclizine HCl [Meclizine] 25 mg PO TID PRN #21 chw 05/31/20 Cyclobenzaprine HCl [Flexeril] 10 mg PO Q8H PRN #20 tab 10/13/20 Ibuprofen 800 mg PO Q8H PRN #20 tab 10/13/20 traMADol 37.5MG/APAP 325MG [Ultracet] 1 ea PO .Q4H PRN 4 Days #20 tab 11/06/20
[2020-11-06 04:50] VITALS: BP 133/104; TEMP 97.8
== END 2020-11-06 04:50 | disposition home or self-care (01) ==
LOC: ER 03:55
DX: S93.401A Sprain of unspecified ligament of right ankle, initial encounter (principal); J44.9 Chronic obstructive pulmonary disease, unspecified; I50.9 Heart failure, unspecified; I11.0 Hypertensive heart disease with heart failure; E11.9 Type 2 diabetes mellitus without complications; Z79.4 Long term (current) use of insulin; Z79.01 Long term (current) use of anticoagulants; Z79.899 Other long term (current) drug therapy; X50.9XXA Other and unspecified overexertion or strenuous movements or postures, initial encounter; Y93.01 Activity, walking, marching and hiking; Y92.9 Unspecified place or not applicable